=== PATIENT | male | born 1965 | race Caucasian/White ===

== ENCOUNTER 2016-03-17 16:43 | Emergency (ER) | payer OTHER ==
[~2016-03-17] VITALS: Ht 180.3 cm; Wt 136.0 kg
[~2016-03-17 16:43] MED LIST: CLIN1CAP6 PO; FURO20 PO; INSU1SOL; NADO20TA PO; OXYC15TA PO; pain pump
[2016-03-17 16:45] VITALS: BP 172/84; PULSE 106; RESP 14; TEMP 98.7; O2SAT 97
[2016-03-17] MEDS ORDERED: FURO1TAB62 PO (21:47)
[2016-03-17] MEDS ORDERED: OXYC-424 PO (21:47)
[2016-03-17] MEDS ORDERED: METF500T PO (21:47)
[2016-03-17] MEDS ORDERED: INSU1SOL SQ (21:47)
[2016-03-17] MEDS ORDERED: SODIUM CHLORIDE 0.9% FLUSH 5 ML FLUSH IVF PRN (22:30)
[2016-03-17] MEDS ORDERED: ONDANSETRON HCL 4 MG/2 ML VIAL IVP ONE (22:30)
[2016-03-17] MEDS ORDERED: HYDROmorphone HCL PF 1 MG/ML VIAL IVS ONE (22:30)
[2016-03-17 23:06] LABS: AUTOMATED NEUTROPHIL # 5.4 TH/MM3 (1.8-7.7); BASOPHIL # 0.1 TH/MM3 (0-0.2); BASOPHIL % 0.7 % (0.0-2.0); EOSINOPHIL # 0.1 TH/MM3 (0-0.4); EOSINOPHIL % 1.3 % (0.0-4.0); HEMATOCRIT 39.8 % (39.0-51.0); HEMO FLAGS DIFF FINAL; LYMPH % 23.3 % (9.0-44.0); MEAN CELL VOLUME 96.2 FL (80.0-100.0); MEAN CORPUSCULAR HGB CONC 34.3 % (32.0-36.0); NEUT % 64.7 % (16.0-70.0); PLATELET COUNT 149 TH/MM3 (150-450); RED BLOOD COUNT 4.14 MIL/MM3 (4.50-5.90); RED CELL DISTRIBUTION WIDTH 15.8 % (11.6-17.2); WHITE BLOOD COUNT 8.4 TH/MM3 (4.0-11.0)
[2016-03-17 23:17] LABS: APTT (PATIENT) 29.8 SEC (24.3-30.1); INTERNATIONAL NORMALIZED RATIO 1.2 RATIO; PROTHROMBIN TIME - PATIENT 13.1 SEC (9.8-11.6)
[2016-03-17 23:20] LABS: ANION GAP 10 MEQ/L (5-15); AST (GOT) 29 U/L (15-37); BICARBONATE 30.3 MEQ/L (21.0-32.0); BLOOD UREA NITROGEN 4 MG/DL (7-18); CHLORIDE 96 MEQ/L (98-107); GLOMERULAR FILTRATION RATE 120 ML/MIN (>89); POTASSIUM 4.3 MEQ/L (3.5-5.1); SODIUM (NA) 136 MEQ/L (136-145)
[2016-03-17 23:23] LABS: ALKALINE PHOSPHATASE 197 U/L (45-117); ALT (GPT) 19 U/L (12-78); TOTAL BILIRUBIN ADULT 1.4 MG/DL (0.2-1.0)
[2016-03-17 23:24] LABS: BLOOD, URINE TRACE (NEG); COMMENT (UR) CULT NOT INDICATED; CULTURE IF INDICATED CULT NOT INDICATED; GLUCOSE,URINE 1000 mg/dL (NEG); KETONE, URINE TRACE mg/dL (NEG); MUCUS URINE FEW /lpf (OCC); NITRITE,URINE NEG (NEG); PH, URINE 6.5 (5.0-8.5); SQUAMOUS EPITHELIAL CELL URINE 1 /hpf (0-5); URINE COLOR YELLOW (YELLW/STRAW)
--- NOTE | 2016-03-18 00:49 | PD ---
HPI Chief Complaint: Back/ Neck Pain or Injury Time Seen by Provider: 21:52 Travel History International Travel<30 days: No Contact w/Intl Traveler<30days: No Traveled to known affect area: No History of Present Illness HPI The patient 79 years old and complains of 2 weeks of right flank and right low back pain. Onset gradual. He's noticed some dark urine. His normal routine of indwelling Dilaudid infuser could not confer sufficient benefit. He's had no fever. He's had no vomiting. Pain radiates from the region of the right iliac crest to the posterior inferior right thigh. Pain is worse with palpation. PFSH Past Medical History Asthma: No Blood Disorders: No Anxiety: No Depression: No Heart Rhythm Problems: No Cancer: No Cardiac Catheterization: No Cardiovascular Problems: No High Cholesterol: No Chemotherapy: No Chest Pain: No Congestive Heart Failure: No COPD: No Diabetes: Yes Patient Takes Glucophage: Yes Diminished Hearing: No Deep Vein Thrombosis: Yes Endocrine: Yes Gastrointestinal Disorders: Yes (esophageal varosis) GERD: Yes Genitourinary: Yes (recent UTI) Hepatitis: Yes (cirrohosis) Hiatal Hernia: No Immune Disorder: No Implanted Vascular Access Dvce: Yes (pain pump with dilaudid) Medical other: Yes (LIVER DISEASE) Musculoskeletal: Yes (fx of l3 and t9 hx of broken pelvis 2 herniated disc in c3-4) Neurologic: No Psychiatric: No Reproductive: No Respiratory: No Immunizations Current: No Radiation Therapy: No Sleep Apnea: No Thyroid Disease: No Past Surgical History AICD: No Body Medical Devices: 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 Coronary Artery Bypass Graft: No Coronary Stent: Yes Joint Replacement: No Neurologic Surgery: Yes (CHRISTIANO IN BACK) Pacemaker: No Thoracic Surgery: Yes (YANETH FILTER) Other Surgery: Yes (pelvic repair, right btk amputation) Social History Alcohol Use: Yes (OCCASSIONALLY- ) Tobacco Use: Yes (2 ppd) Substance Use: No Allergies-Medications (Allergen,Severity, Reaction): Coded Allergies: Morphine (Unverified Allergy, Severe, nausea and vomiting, 03/17/16) Nonsteroidal Anti-Inflammatory Agts (Verified Adverse Reaction, Severe, INCONTINENCE, 03/17/16) Reported Meds & Prescriptions Reported Meds & Active Scripts Active Reported Oxycodone ER (Oxycodone HCl) 15 Mg Tab 15 Mg PO Q8HR PRN Humulin R U-500 (Concentrate) Kwikpen Inj (Insulin Regular (Human) Concentrate Inj) 1,500 Units/3 Ml Pen 3 Units SQ TID Lasix (Furosemide) 20 Mg Tab 20 Mg PO DAILY Metformin (Metformin HCl) 500 Mg Tab 500 Mg PO BIDPC With meals Review of Systems Except as stated in HPI: all other systems reviewed are Neg General / Constitutional: No: Fever Cardiovascular: No: Chest Pain or Discomfort, Palpitations Physical Exam Narrative GENERAL: 50-year-old male BMI is 42 approximately SKIN: Warm and dry. HEAD: Atraumatic. Normocephalic. EYES: Pupils equal and round. No scleral icterus. No injection or drainage. ENT: No nasal bleeding or discharge. Mucous membranes pink and moist. NECK: Trachea midline. No JVD. CARDIOVASCULAR: Heart rate approximately 100. Regular rhythm. RESPIRATORY: No accessory muscle use. Clear to auscultation. Breath sounds equal bilaterally. GASTROINTESTINAL: Abdomen soft, non-tender, nondistended. Hepatic and splenic margins not palpable. MUSCULOSKELETAL: Right below-knee amputation. No gross deformity otherwise. Minimal tenderness to palpation overlying the region of the right iliac crest. NEUROLOGICAL: Awake and alert. No obvious cranial nerve deficits. Motor grossly within normal limits. Normal speech. PSYCHIATRIC: Appropriate mood and affect; insight and judgment normal. Data Data Last Documented VS Vital Signs Date Time Temp Pulse Resp B/P Pulse Ox O2 Delivery O2 Flow Rate FiO2 03/17/16 16:45 98.7 106 14 172/84 97 Room Air Orders Complete Blood Count With Diff (03/17/16 22:16) Comprehensive Metabolic Panel (03/17/16 22:16) Prothrombin Time / Inr (Pt) (03/17/16 22:16) Act Partial Throm Time (Ptt) (03/17/16 22:16) Urinalysis - C+S If Indicated (03/17/16 22:16) Iv Access Insert/Monitor (03/17/16 22:16) Ecg Monitoring (03/17/16 22:16) Oximetry (03/17/16 22:16) Ondansetron Inj (Zofran Inj) (03/17/16 22:30) Sodium Chloride 0.9% Flush (Ns Flush) (03/17/16 22:30) Hydromorphone Pf Inj (Dilaudid Pf Inj) (03/17/16 22:30) Ed Poc Ultrasound (03/18/16 00:37) Labs Laboratory Tests Test 03/17/16 03/17/16 22:50 23:00 White Blood Count 8.4 TH/MM3 Red Blood Count 4.14 MIL/MM3 Hemoglobin 13.7 GM/DL Hematocrit 39.8 % Mean Corpuscular Volume 96.2 FL Mean Corpuscular Hemoglobin 33.0 PG Mean Corpuscular Hemoglobin 34.3 % Concent Red Cell Distribution Width 15.8 % Platelet Count 149 TH/MM3 Mean Platelet Volume 8.5 FL Neutrophils (%) (Auto) 64.7 % Lymphocytes (%) (Auto) 23.3 % Monocytes (%) (Auto) 10.0 % Eosinophils (%) (Auto) 1.3 % Basophils (%) (Auto) 0.7 % Neutrophils # (Auto) 5.4 TH/MM3 Lymphocytes # (Auto) 2.0 TH/MM3 Monocytes # (Auto) 0.8 TH/MM3 Eosinophils # (Auto) 0.1 TH/MM3 Basophils # (Auto) 0.1 TH/MM3 CBC Comment DIFF FINAL Differential Comment Prothrombin Time 13.1 SEC Prothromb Time International 1.2 RATIO Ratio Activated Partial 29.8 SEC Thromboplast Time Sodium Level 136 MEQ/L Potassium Level 4.3 MEQ/L Chloride Level 96 MEQ/L Carbon Dioxide Level 30.3 MEQ/L Anion Gap 10 MEQ/L Blood Urea Nitrogen 4 MG/DL Creatinine 0.70 MG/DL Estimat Glomerular Filtration 120 ML/MIN Rate Random Glucose 219 MG/DL Calcium Level 8.3 MG/DL Total Bilirubin 1.4 MG/DL Aspartate Amino Transf 29 U/L (AST/SGOT) Alanine Aminotransferase 19 U/L (ALT/SGPT) Alkaline Phosphatase 197 U/L Total Protein 7.9 GM/DL Albumin 2.7 GM/DL Urine Color YELLOW Urine Turbidity CLEAR Urine pH 6.5 Urine Specific [place] 1.033 Urine Protein TRACE mg/dL Urine Glucose (UA) 1000 mg/dL Urine Ketones TRACE mg/dL Urine Occult Blood TRACE Urine Nitrite NEG Urine Bilirubin NEG Urine Urobilinogen GREATER THAN 12.0 MG/DL Urine Leukocyte Esterase NEG Urine RBC 6 /hpf Urine WBC 1 /hpf Urine Squamous Epithelial 1 /hpf Cells Urine Mucus FEW /lpf Microscopic Urinalysis Comment CULT NOT INDICATED MDM Medical Decision Making Medical Screen Exam Complete: Yes Emergency Medical Condition: Yes Differential Diagnosis Sciatica, kidney disease, renal failure, hepatobiliary disease, renal stone Narrative Course CBC & BMP Diagram 03/17/16 22:50 Bilirubin is 1.4 Alkaline phosphatase is 197 Albumin 2.7 INR 1.2 Urinalysis shows urobilinogen without UTI Overall the patient's primary issue is pain which is presumably sciatica. Upon reassessment the patient found sleeping in his room. He woke up and asked for additional Dilaudid. A bedside ultrasound revealed the right kidney with no hydronephrosis. During the exam the patient states he is out of his oxycodone prescription. In any case treatment medical or surgical emergency is considered reasonably safely excluded. Follow-up with primary care provider in the next 2 days or so. Return precautions discussed. Patient agreeable with plan. Procedures Procedure Narrative A bedside ultrasound was performed of the right kidney. Curvilinear probe was placed over the region of the right flank. Long and short axis views revealed no significant hydronephrosis. Diagnosis Primary Impression: Right flank pain Additional Impressions: Sciatica Qualified Code: M54.31 - Sciatica of right side Chronic pain Qualified Code: G89.29 - Other chronic pain Referrals: Primary Care Physician 2 days Additional Instructions: You have a choice when it comes to health care, and we are glad that you chose [facility]. Hopefully, we have met your expectations on today's visit. You are welcome to return to [facility] at any time, as we are committed to meeting the health care needs of our community. Follow up with follow-up with gastroenterology for evaluation of chronic liver disease next 2 days. Med/Other Pt SpecificInfo: Prescription(s) given Scripts Oxycodone-Acetaminophen (Percocet)7.5-325 mg Tab1 Tab PO Q6H PRN (PAIN SCALE 6 TO 10) #15 TAB Ref 0 Prov:Grady Zavala MD 03/18/16 Disposition: 01 DISCHARGE HOME Condition: Stable Grady Zavala MD Mar 18, 2016 00:49
[2016-03-18] MEDS ORDERED: PERC7.5T13 PO (01:14)
== END 2016-03-18 01:28 | disposition home or self-care (01) ==
LOC: NEPE 16:43
DX: R10.9 Unspecified abdominal pain (principal); M54.31 Sciatica, right side; G89.29 Other chronic pain
CPT/HCPCS: 80053; 81001; 85025; 85610; 85730; 96374; 96375; 99284; J1170; J2405

== ENCOUNTER 2016-03-23 14:44 | Inpatient (IN) | payer OTHER, MEDICARE ==
[~2016-03-23] VITALS: Ht 182.9 cm; Wt 156.5 kg
[~2016-03-23 14:44] MED LIST changes: -CLIN1CAP6 PO; +FURO1TAB62 PO; -FURO20 PO; -INSU1SOL; +INSU1SOL SQ; +METF500T PO; -NADO20TA PO; +OXYC-424 PO; -OXYC15TA PO; +PERC7.5T13 PO; -pain pump
[2016-03-23 15:03] VITALS: BP 173/100; PULSE 103; RESP 20; TEMP 98.3; O2SAT 93
[2016-03-23 20:40] VITALS: BP 152/76; PULSE 106; RESP 20; O2SAT 95
[2016-03-23 21:20] VITALS: RESP 20; O2SAT 95
[2016-03-23] MEDS ORDERED: SODIUM CHLORIDE 0.9% FLUSH 5 ML FLUSH IVF PRN (22:00)
[2016-03-23] MEDS ORDERED: ONDANSETRON HCL 4 MG/2 ML VIAL IVP ONE (22:00)
[2016-03-23] MEDS: SODIUM CHLOR 0.9% 1000 ML INJ 1,000 ML IV SCH (22:28)
[2016-03-23 22:29] LABS: KETONE, URINE NEG (NEG); NITRITE,URINE NEG (NEG)
[2016-03-23 22:30] LABS: BLOOD, URINE MOD (NEG); GLUCOSE,URINE 1000 OR GREATER mg/dL (NEG)
[2016-03-23 22:30] LABS: AUTOMATED NEUTROPHIL # 6.2 TH/MM3 (1.8-7.7); BASOPHIL % 0.2 % (0.0-2.0); EOSINOPHIL % 0.3 % (0.0-4.0); HEMATOCRIT 40.3 % (39.0-51.0); HEMO FLAGS DIFF FINAL; LYMPHOCYTE # 1.3 TH/MM3 (1.0-4.8); MEAN CELL VOLUME 94.5 FL (80.0-100.0); MEAN CORPUSCULAR HEMOGLOBIN 31.9 PG (27.0-34.0); MEAN CORPUSCULAR HGB CONC 33.7 % (32.0-36.0); MONO % 10.2 % (0.0-8.0); NEUT % 73.3 % (16.0-70.0); PLATELET COUNT 149 TH/MM3 (150-450); RED BLOOD COUNT 4.26 MIL/MM3 (4.50-5.90); RED CELL DISTRIBUTION WIDTH 15.6 % (11.6-17.2); WHITE BLOOD COUNT 8.3 TH/MM3 (4.0-11.0)
[2016-03-23 22:32] LABS: METHOD OF COLLECTION VOIDED; URINE COLOR AMBER (YELLW/STRAW)
[2016-03-23 22:35] VITALS: BP 141/79; PULSE 98; RESP 20; O2SAT 95
[2016-03-23 22:35] LABS: CHLORIDE 95 MEQ/L (98-107); POTASSIUM 3.4 MEQ/L (3.5-5.1); SODIUM (NA) 137 MEQ/L (136-145)
[2016-03-23 22:36] LABS: MUCUS URINE MOD /lpf (OCC)
[2016-03-23 22:37] LABS: BACTERIA, URINE RARE /hpf; RBC, URINE 0-3 /hpf (0-3)
[2016-03-23 22:39] LABS: ANION GAP 11 MEQ/L (5-15); BICARBONATE 30.7 MEQ/L (21.0-32.0); BLOOD UREA NITROGEN 5 MG/DL (7-18)
[2016-03-23 22:41] LABS: COMMENT (UR) CULT NOT INDICATED; CULTURE IF INDICATED CULT NOT INDICATED
[2016-03-23 22:42] LABS: ALT (GPT) 16 U/L (12-78); AST (GOT) 38 U/L (15-37); GLOMERULAR FILTRATION RATE 131 ML/MIN (>89)
[2016-03-23 22:44] LABS: TOTAL BILIRUBIN ADULT 1.8 MG/DL (0.2-1.0)
[2016-03-23 22:45] LABS: ALKALINE PHOSPHATASE 190 U/L (45-117)
[2016-03-23] MEDS ORDERED: DILA1LIQ (22:49)
[2016-03-23] MEDS: METFORMIN HOLD POST IV CONTRAST XX SCH (23:00)
--- NOTE | 2016-03-23 23:01 | RADHPO ---
EXAM DATE/TIME: 03/23/2016 22:46 [facility] COMPARISON: CHEST SINGLE AP, March 25, 2013, 21:25. INDICATIONS : Complains of pain in right hip and back. Cough. MEDICAL HISTORY : Diabetes mellitus type II. SURGICAL HISTORY : Lumbar ENCOUNTER: Initial ACUITY: 1 day PAIN SCORE: 10/10 LOCATION: Bilateral chest FINDINGS: A single view of the chest demonstrates bilateral mostly basilar airspace disease or. Heart size mild ly enlarged. No pneumothorax. CONCLUSION: 1. Cardiomegaly. Mild basilar airspace disease. River Lemons MD on March 23, 2016 at 22:58 Board Certified Radiologist. This report was verified electronically.
[2016-03-23] MEDS ORDERED: IOHEXOL 350 MG/ML 10 ML VIAL (for RAD DIAG) IV ONE (23:17)
[2016-03-23 23:20] LABS: APTT (PATIENT) 33.4 SEC (24.3-30.1); INTERNATIONAL NORMALIZED RATIO 1.2 RATIO; PROTHROMBIN TIME - PATIENT 13.3 SEC (9.8-11.6)
--- NOTE | 2016-03-23 23:32 | RADHPO ---
EXAM DATE/TIME: 03/23/2016 23:03 This report includes an Addendum and supersedes previous reports for this exam. [facility] COMPARISON: CT ABDOMEN & PELVIS W CONTRAST, July 15, 2015, 18:39. INDICATIONS : Right lower back pain radiating into right buttocks. IV CONTRAST: 100 cc Omnipaque 350 (iohexol) IV ORAL CONTRAST: No oral contrast ingested. RADIATION DOSE: 22.46 CTDIvol (mGy) MEDICAL HISTORY : Diabetes mellitus type 2. SURGICAL HISTORY : Fusion, lumbar. Neurostimulator. ENCOUNTER: Initial ACUITY: 2 weeks PAIN SCALE: 10/10 LOCATION: Right lower quadrant TECHNIQUE: Volumetric scanning of the abdomen and pelvis was performed. Using automated exposure control and ad justment of the mA and/or kV according to patient size, radiation dose was kept as low as reasonably achievable to obtain optimal diagnostic quality images. FINDINGS: Lobulated hepatic contour and caudate and left lobe hypertrophy characteristic of cirrhosis. There is recanalization of the umbilical vein and numerous varices are seen. This includes several varices in the gastrohepatic ligament and periesophageal region. There is splenomegaly. Pancreas, adrenal gland s, bilateral kidneys are unremarkable. IVC filter is noted. Urinary bladder unremarkable. Small and l arge bowel are unremarkable. There is scarring at the right lung base again seen. Review of bone wind ows demonstrate a postsurgical changes to the lower lumbar spine with remote fracture deformities of the pelvic bones with postoperative fixation hardware in place. There are remote pubic rami, pubic sy mphysis and acetabular fractures. No acute fractures are seen. CONCLUSION: No acute disease. Jace Goins MD on March 23, 2016 at 23:28 Board Certified Radiologist. This report was verified electronically. ADDENDUM: Additional clinical information is provided. There is induration of the subcutaneous fat of the right gluteal region and mild skin thickening which can be seen with cellulitis in the area of clinical co ncern. There is a well-defined though partially obscured low density area measuring 9 x 4 cm in trans verse and AP dimension at the right lower paravertebral region most likely representing a chronic ser leonarda. In the right gluteal region posterior to the sacrum the 16 cm fluid collection seen previously i s significantly decreased in size today measuring approximately 6.9 x 3.4 cm on axial image 78 and a 7.4 x 3.4 cm transverse and AP dimension fluid collection in the right gluteal region subcutaneous fa t as measured on axial image 63. Jace Goins MD on March 23, 2016 at 23:48 Board Certified Radiologist. This report was verified electronically.
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
[2016-03-24] VITALS (15 sets, daily range): BP systolic 132–178; BP diastolic 72–89; PULSE 78–104; RESP 12–29; TEMP 98–98.7; O2SAT 91–100
[2016-03-24] MEDS ORDERED: PIPERACIL-TAZO 3.375 GM PREMIX 50 ML IV ONE (00:15)
[2016-03-24] MEDS ORDERED: SODIUM CHLORIDE 0.9% FLUSH 5 ML FLUSH IVF PRN (00:15)
[2016-03-24] MEDS ORDERED: VANCOMYCIN INJ 1,500 MG in SODIUM CHLORID 0.9% 500 ML INJ 500 ML IV ONE (00:15)
[2016-03-24] MEDS ORDERED: SODIUM CHLOR 0.9% 1000 ML INJ 1,000 ML IV ONE (01:00)
[2016-03-24] MEDS ORDERED: Vancomycin Consult Pharmacy 1 EA OTHER SCH (01:00)
[2016-03-24] MEDS ORDERED: NALOXONE HCL 0.4 MG/ML AMP IV PRN (01:00)
[2016-03-24] MEDS ORDERED: SODIUM CHLORIDE 0.9% FLUSH 5 ML FLUSH FLUSH PRN (01:00)
[2016-03-24] MEDS: ONDANSETRON HCL 4 MG/2 ML VIAL IV PUSH PRN ×2 (03:39→19:33)
[2016-03-24] MEDS: RESP: IPRATROPIUM 0.5 MG/2.5 ML NEB NEB SCH ×4 (04:00→21:00)
[2016-03-24] MEDS ORDERED: RESP: IPRATROPIUM 0.5 MG/2.5 ML NEB NEB PRN (04:15)
[2016-03-24] MEDS ORDERED: methylPREDNISolone SOD SUCC 125 MG/2 ML VIAL IV PUSH ONE (04:15)
[2016-03-24] MEDS: SODIUM CHLOR 0.9% 1000 ML INJ 1,000 ML IV SCH (04:20)
[2016-03-24] MEDS ORDERED: PIPERACIL-TAZO 4.5 GM PREMIX 100 ML IV SCH (06:00)
[2016-03-24] MEDS ORDERED: SODIUM CHLORIDE 0.9% FLUSH 5 ML FLUSH IVF SCH (09:00)
[2016-03-24] MEDS: SODIUM CHLORIDE 0.9% FLUSH 5 ML FLUSH FLUSH SCH ×2 (09:00→19:33)
[2016-03-24] MEDS: VANCOMYCIN INJ 1,700 MG in SODIUM CHLORID 0.9% 500 ML INJ 500 ML IV SCH ×2 (09:36→17:17)
[2016-03-24] MEDS: ENOXAPARIN SODIUM 40 MG/0.4 ML SYRINGE SQ SCH (09:36)
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
[2016-03-24] MEDS ORDERED: OXYCODONE 15 MG PO PRN (12:00)
[2016-03-24] MEDS ORDERED: DEXTROSE 50% IN WATER 50 ML VIAL(D50) IV PUSH PRN (12:00)
[2016-03-24] MEDS ORDERED: GLUCAGON 1 MG/ML VIAL OTHER PRN (12:00)
[2016-03-24] MEDS: oxyCODONE HCL 10 MG CONTROLLED RELEASE TAB PO SCH ×2 (14:00→21:48)
[2016-03-24] MEDS: METFORMIN HOLD POST IV CONTRAST XX SCH ×2 (14:00→23:00)
[2016-03-24] MEDS: INSULIN ASPART SUPPLEMENTAL SCALE SQ SCH ×2 (16:26→19:40)
[2016-03-24] MEDS: oxyCODONE/ACETAMINOPHEN 7.5 MG/325 MG TAB PO PRN (16:29)
[2016-03-24] MEDS ORDERED: metFORMIN HCL 500 MG TAB PO SCH (18:00)
[2016-03-24] MEDS: DOCUSATE SODIUM 50 MG/SENNA 8.6 MG TAB PO SCH (19:34)
[2016-03-25] VITALS (11 sets, daily range): BP systolic 121–162; BP diastolic 67–103; PULSE 69–90; RESP 12–25; TEMP 97.3–98.1; O2SAT 93–98
[2016-03-25] MEDS: VANCOMYCIN INJ 1,700 MG in SODIUM CHLORID 0.9% 500 ML INJ 500 ML IV SCH ×3 (01:57→17:06)
[2016-03-25] MEDS: oxyCODONE/ACETAMINOPHEN 7.5 MG/325 MG TAB PO PRN ×3 (01:57→17:06)
[2016-03-25] MEDS: RESP: IPRATROPIUM 0.5 MG/2.5 ML NEB NEB SCH ×4 (03:42→20:46)
[2016-03-25 05:15] LABS: AUTOMATED NEUTROPHIL # 6.9 TH/MM3 (1.8-7.7); BASOPHIL % 0.6 % (0.0-2.0); EOSINOPHIL % 0.1 % (0.0-4.0); HEMATOCRIT 39.9 % (39.0-51.0); HEMO FLAGS DIFF FINAL; LYMPH % 9.9 % (9.0-44.0); LYMPHOCYTE # 0.8 TH/MM3 (1.0-4.8); MEAN CELL VOLUME 96.3 FL (80.0-100.0); MEAN CORPUSCULAR HEMOGLOBIN 31.3 PG (27.0-34.0); MEAN CORPUSCULAR HGB CONC 32.5 % (32.0-36.0); MONO % 5.8 % (0.0-8.0); NEUT % 83.6 % (16.0-70.0); PLATELET COUNT 137 TH/MM3 (150-450); RED BLOOD COUNT 4.15 MIL/MM3 (4.50-5.90); RED CELL DISTRIBUTION WIDTH 15.5 % (11.6-17.2); WHITE BLOOD COUNT 8.2 TH/MM3 (4.0-11.0)
[2016-03-25 05:37] LABS: BICARBONATE 32.7 MEQ/L (21.0-32.0); POTASSIUM 4.4 MEQ/L (3.5-5.1)
[2016-03-25] MEDS: oxyCODONE HCL 10 MG CONTROLLED RELEASE TAB PO SCH ×3 (05:46→21:53)
[2016-03-25] MEDS: INSULIN ASPART SUPPLEMENTAL SCALE SQ SCH ×4 (05:46→20:54)
[2016-03-25] MEDS: ENOXAPARIN SODIUM 40 MG/0.4 ML SYRINGE SQ SCH (09:10)
[2016-03-25] MEDS: FUROSEMIDE 20 MG TAB PO SCH (09:10)
[2016-03-25] MEDS: SODIUM CHLORIDE 0.9% FLUSH 5 ML FLUSH FLUSH SCH ×2 (09:11→20:42)
[2016-03-25] MEDS: DOCUSATE SODIUM 50 MG/SENNA 8.6 MG TAB PO SCH ×2 (09:11→20:42)
[2016-03-25] MEDS ORDERED: PHARMACY ORDERED LAB XX ONE (09:45)
[2016-03-25] MEDS: METFORMIN HOLD POST IV CONTRAST XX SCH (13:47)
--- NOTE | 2016-03-25 14:37 | HHI.PR ---
Subjective Remarks Patient seen and evaluated in follow-up for a gluteal cellulitis which appears to be improving. Patient tolerating current antibiotics. No new complaints. Objective Vitals Vital Signs Date Time Temp Pulse Resp B/P Pulse Ox O2 Delivery O2 Flow Rate FiO2 03/25/16 09:33 93 21 03/25/16 04:00 97.8 78 13 162/97 98 03/25/16 04:00 78 03/25/16 00:00 98.1 86 16 147/67 96 03/25/16 00:00 86 03/24/16 21:00 95 Nasal Cannula 2.00 03/24/16 20:00 98.0 86 20 178/76 94 03/24/16 20:00 89 03/24/16 16:24 92 21 03/24/16 16:00 98.2 79 20 168/82 91 03/24/16 16:00 78 I/O 03/24/16 03/24/16 03/24/16 03/25/16 03/25/16 03/25/16 06:59 14:59 22:59 06:59 14:59 22:59 Intake Total 1365 ml 1728 ml 1185 ml 835 ml Output Total 700 ml 400 ml 750 ml 600 ml Balance 665 ml 1328 ml 435 ml 235 ml Intake Oral 120 ml 520 ml 240 ml 240 ml IV Total 1245 ml 1208 ml 945 ml 595 ml Output Urine Total 700 ml 400 ml 750 ml 600 ml # Bowel Movements 0 0 0 0 Result Diagram: 03/25/16 0500 03/25/16 0500 Imaging Last Impressions Chest X-Ray 03/23/162149 Signed Impressions: Service Date/Time: Wednesday, March 23, 2016 22:46 - CONCLUSION: 1. Cardiomegaly. Mild basilar airspace disease. River Lemons MD Abdomen/Pelvis CT 03/23/162149 Signed Impressions: Service Date/Time: Wednesday, March 23, 2016 23:03 - CONCLUSION: No acute disease. Jace Goins MD ADDENDUM: Additional clinical information is provided. There is induration of the subcutaneous fat of the right gluteal region and mild skin thickening which can be seen with cellulitis in the area of clinical concern. There is a well-defined though partially obscured low density area measuring 9 x 4 cm in transverse and AP dimension at the right lower paravertebral region most likely representing a chronic seroma. In the right gluteal region posterior to the sacrum the 16 cm fluid collection seen previously is significantly decreased in size today measuring approximately 6.9 x 3.4 cm on axial image 78 and a 7.4 x 3.4 cm transverse and AP dimension fluid collection in the right gluteal region subcutaneous fat as measured on axial image 63. Jace Goins MD Objective Remarks GENERAL: This is a well-nourished, well-developed patient, in no apparent distress. CARDIOVASCULAR: Regular rate and rhythm without murmurs, gallops, or rubs. RESPIRATORY: Clear to auscultation. Breath sounds equal bilaterally. No wheezes , rales, or rhonchi. GASTROINTESTINAL: Abdomen soft, non-tender, nondistended. Normal active bowel sounds MUSCULOSKELETAL: r BKA Extremities without clubbing, cyanosis, or edema. NEURO: Alert & Oriented x4 to person, place, time, situation. Moves all ext x4 A/P Problem List: (1) Cellulitis of buttock, right ICD Code: L03.317 Status: Acute Plan: Vanco IV, to po abx in am Chronic wound, outpatient follow up for this as an outpatient (Dr. Srinivasan Shannon) Sepsis resolved daily wound care (2) DM type 2 (diabetes mellitus, type 2) ICD Code: E11.9 Status: Chronic Plan: cont meds and sliding scale (3) Chronic pain ICD Code: G89.29 Status: Acute Plan: on painpump po meds continue (4) Cirrhosis ICD Code: K74.60 Status: Acute Plan: stable Discharge Planning transfer to med surg likely d/c in Tiffanie Odell MD Mar 25, 2016 14:37
[2016-03-25] MEDS ORDERED: OXYC15TA PO (14:40)
[2016-03-26] VITALS (10 sets, daily range): BP systolic 120–141; BP diastolic 72–80; PULSE 80–98; RESP 11–22; TEMP 97–97.9; O2SAT 92–94
[2016-03-26] MEDS: oxyCODONE/ACETAMINOPHEN 7.5 MG/325 MG TAB PO PRN ×2 (00:09→08:50)
[2016-03-26] MEDS: VANCOMYCIN INJ 1,700 MG in SODIUM CHLORID 0.9% 500 ML INJ 500 ML IV SCH ×2 (01:51→10:50)
[2016-03-26] MEDS: RESP: IPRATROPIUM 0.5 MG/2.5 ML NEB NEB SCH ×2 (04:10→10:08)
[2016-03-26] MEDS: INSULIN ASPART SUPPLEMENTAL SCALE SQ SCH ×2 (05:18→11:29)
[2016-03-26] MEDS: oxyCODONE HCL 10 MG CONTROLLED RELEASE TAB PO SCH ×2 (05:18→13:49)
[2016-03-26] MEDS: DOCUSATE SODIUM 50 MG/SENNA 8.6 MG TAB PO SCH (08:50)
[2016-03-26] MEDS: ENOXAPARIN SODIUM 40 MG/0.4 ML SYRINGE SQ SCH (08:50)
[2016-03-26] MEDS: FUROSEMIDE 20 MG TAB PO SCH (08:50)
[2016-03-26] MEDS: SODIUM CHLORIDE 0.9% FLUSH 5 ML FLUSH FLUSH SCH (08:54)
[2016-03-26] MEDS ORDERED: OXYC15TA PO (14:03)
--- NOTE | 2016-03-26 14:05 | HHI.DCPOC ---
Discharge Care Plan Diagnosis: (1) Cellulitis of buttock, right (2) DM type 2 (diabetes mellitus, type 2) Goals to Promote Your Health * To prevent worsening of your condition and complications * To maintain your health at the optimal level Directions to Meet Your Goals Take your medications as prescribed Follow your dietary instruction Follow activity as directed Keep your appointments as scheduled Take your immunizations and boosters as scheduled If your symptoms worsen call your PCP, if no PCP go to Urgent Care Center or Emergency Room Smoking is Dangerous to Your Health. Avoid second hand smoke Call the 24-hour hour crisis hotline for domestic abuse at Tiffanie Odell MD Mar 26, 2016 14:05
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
[2016-03-26] MEDS ORDERED: MORPHINE SULFATE 8 MG/ML INJ ONE (14:57)
[2016-03-26] MEDS ORDERED: PERC7.5T13 PO (15:19)
== END 2016-03-26 17:00 | disposition home or self-care (01) | DRG 872 ==
LOC: PHED 14:44 → PHEDA 03-24 00:07 → PHICU 03-24 03:12
PROVIDERS: ADMIT Hospitalist; ATTEND Hospitalist
DX: A41.9 Sepsis, unspecified organism (principal); L03.317 Cellulitis of buttock; K70.30 Alcoholic cirrhosis of liver without ascites; Z89.611 Acquired absence of right leg above knee; E11.9 Type 2 diabetes mellitus without complications; E66.9 Obesity, unspecified; S31.819D Unspecified open wound of right buttock, subsequent encounter; Z79.4 Long term (current) use of insulin; K21.9 Gastro-esophageal reflux disease without esophagitis; Z86.718 Personal history of other venous thrombosis and embolism; F17.210 Nicotine dependence, cigarettes, uncomplicated; G89.29 Other chronic pain; M54.5 Low back pain; X58.XXXD Exposure to other specified factors, subsequent encounter
CPT/HCPCS: 71010; 74177; 80048; 80053; 80202; 81001; 82948; 83605; 83690; 85025; 85610; 85730; 87040; 94150; 94640; 94664; 96361; 96374; J1650; J1815; J2270; J2405; J2543; J2930; J3370; J7030; J7040; J7644; Q9967

== ENCOUNTER 2016-03-28 05:04 | Inpatient (IN) | payer OTHER, MEDICARE ==
[~2016-03-28] VITALS: Ht 180.3 cm; Wt 154.0 kg
[~2016-03-28 05:04] MED LIST changes: +DILA1LIQ; -OXYC-424 PO
[2016-03-28 05:07] VITALS: BP 155/72; PULSE 111; RESP 18; TEMP 98.4; O2SAT 94
[2016-03-28] MEDS ORDERED: oxyCODONE/ACETAMINOPHEN 5 MG/325 MG TAB PO ONE (05:45)
[2016-03-28] MEDS ORDERED: ONDANSETRON HCL 4 MG/2 ML VIAL IV ONE (05:45)
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
[2016-03-28 06:23] LABS: BASOPHIL % 0.3 % (0.0-2.0); EOSINOPHIL # 0.2 TH/MM3 (0-0.4); EOSINOPHIL % 2.1 % (0.0-4.0); HEMATOCRIT 34.7 % (39.0-51.0); HEMO FLAGS DIFF FINAL; LYMPH % 17.3 % (9.0-44.0); LYMPHOCYTE # 1.3 TH/MM3 (1.0-4.8); MEAN CELL VOLUME 94.4 FL (80.0-100.0); MEAN CORPUSCULAR HEMOGLOBIN 33.9 PG (27.0-34.0); MEAN CORPUSCULAR HGB CONC 35.9 % (32.0-36.0); MONO % 13.8 % (0.0-8.0); NEUT % 66.5 % (16.0-70.0); PLATELET COUNT 162 TH/MM3 (150-450); RED BLOOD COUNT 3.67 MIL/MM3 (4.50-5.90); RED CELL DISTRIBUTION WIDTH 16.3 % (11.6-17.2); WHITE BLOOD COUNT 7.5 TH/MM3 (4.0-11.0)
[2016-03-28 06:23] LABS: ALKALINE PHOSPHATASE 144 U/L (45-117); TOTAL BILIRUBIN ADULT 1.9 MG/DL (0.2-1.0)
[2016-03-28 07:00] VITALS: BP 140/64; PULSE 100; RESP 16; O2SAT 98
[2016-03-28] MEDS ORDERED: PIPERACIL-TAZO 3.375 GM PREMIX 50 ML IV ONE (07:15)
[2016-03-28] MEDS ORDERED: VANCOMYCIN INJ 1,000 MG in SODIUM CHLOR 0.9% 250 ML INJ 250 ML IV ONE (07:15)
[2016-03-28 07:16] LABS: ALT (GPT) 20 U/L (12-78); ANION GAP 8 MEQ/L (5-15); AST (GOT) 39 U/L (15-37); BICARBONATE 30.2 MEQ/L (21.0-32.0); BLOOD UREA NITROGEN 5 MG/DL (7-18); CHLORIDE 98 MEQ/L (98-107); GLOMERULAR FILTRATION RATE 138 ML/MIN (>89); POTASSIUM 3.3 MEQ/L (3.5-5.1); SODIUM (NA) 136 MEQ/L (136-145)
[2016-03-28 09:00] VITALS: BP 142/66; PULSE 97; RESP 20; O2SAT 97
[2016-03-28] MEDS: SODIUM CHLOR 0.9% 1000 ML INJ 1,000 ML IV SCH ×2 (09:18→18:20)
[2016-03-28] MEDS ORDERED: ACETAMINOPHEN 325 MG TAB PO PRN (09:30)
[2016-03-28] MEDS ORDERED: VANCOMYCIN INJ 1,000 MG in SODIUM CHLOR 0.9% 250 ML INJ 250 ML IV SCH (09:30)
[2016-03-28] MEDS ORDERED: Vancomycin Consult Pharmacy 1 EA OTHER SCH (09:30)
[2016-03-28] MEDS: HEPARIN SODIUM - SQ 10,000 UNITS/ML VIAL SQ SCH ×2 (10:17→18:20)
[2016-03-28] MEDS: PIPERACIL-TAZO 4.5 GM PREMIX 100 ML IV SCH ×2 (15:15→23:34)
[2016-03-28 16:00] VITALS: BP 113/54; PULSE 88; RESP 17; TEMP 96.8; O2SAT 91
[2016-03-28] MEDS: VANCOMYCIN INJ 1,750 MG in SODIUM CHLORID 0.9% 500 ML INJ 500 ML IV SCH (18:20)
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
[2016-03-28] MEDS ORDERED: oxyCODONE/ACETAMINOPHEN 7.5 MG/325 MG TAB PO PRN (19:00)
[2016-03-28 20:00] VITALS: BP 114/75; PULSE 83; RESP 18; TEMP 98.3; O2SAT 94
[2016-03-28] MEDS: SODIUM CHLORIDE 0.9% FLUSH 5 ML FLUSH FLUSH SCH (20:43)
[2016-03-29] VITALS: BP 130/73; PULSE 77; RESP 20; TEMP 96.1; O2SAT 95
[2016-03-29] MEDS: HEPARIN SODIUM - SQ 10,000 UNITS/ML VIAL SQ SCH ×3 (01:11→16:18)
[2016-03-29] MEDS: VANCOMYCIN INJ 1,750 MG in SODIUM CHLORID 0.9% 500 ML INJ 500 ML IV SCH ×2 (05:18→16:18)
[2016-03-29] MEDS: SODIUM CHLOR 0.9% 1000 ML INJ 1,000 ML IV SCH ×2 (05:18→13:41)
[2016-03-29] MEDS: ONDANSETRON HCL 4 MG/2 ML VIAL IVP PRN ×2 (06:48→13:38)
[2016-03-29 06:56] LABS: AUTOMATED NEUTROPHIL # 3.4 TH/MM3 (1.8-7.7); BASOPHIL % 0.7 % (0.0-2.0); EOSINOPHIL # 0.2 TH/MM3 (0-0.4); EOSINOPHIL % 2.8 % (0.0-4.0); HEMATOCRIT 36.1 % (39.0-51.0); HEMO FLAGS DIFF FINAL; LYMPH % 25.4 % (9.0-44.0); LYMPHOCYTE # 1.5 TH/MM3 (1.0-4.8); MEAN CELL VOLUME 97.4 FL (80.0-100.0); MEAN CORPUSCULAR HEMOGLOBIN 31.8 PG (27.0-34.0); MEAN CORPUSCULAR HGB CONC 32.6 % (32.0-36.0); MONO % 14.3 % (0.0-8.0); NEUT % 56.8 % (16.0-70.0); PLATELET COUNT 139 TH/MM3 (150-450); RED BLOOD COUNT 3.71 MIL/MM3 (4.50-5.90); RED CELL DISTRIBUTION WIDTH 16.4 % (11.6-17.2)
[2016-03-29] MEDS: PIPERACIL-TAZO 4.5 GM PREMIX 100 ML IV SCH ×2 (07:17→13:38)
[2016-03-29 07:27] LABS: ALKALINE PHOSPHATASE 133 U/L (45-117); ALT (GPT) 18 U/L (12-78); ANION GAP 6 MEQ/L (5-15); AST (GOT) 32 U/L (15-37); BICARBONATE 32.2 MEQ/L (21.0-32.0); BLOOD UREA NITROGEN 7 MG/DL (7-18); CHLORIDE 101 MEQ/L (98-107); GLOMERULAR FILTRATION RATE 129 ML/MIN (>89); POTASSIUM 3.7 MEQ/L (3.5-5.1); SODIUM (NA) 139 MEQ/L (136-145); TOTAL BILIRUBIN ADULT 1.1 MG/DL (0.2-1.0)
[2016-03-29 08:00] VITALS: BP 130/62; PULSE 86; RESP 17; TEMP 97.5; O2SAT 94
[2016-03-29] MEDS: INSULIN HUMAN REGULAR 1,000 UNITS/10 ML VIAL SQ SCH ×3 (08:00→16:17)
[2016-03-29] MEDS: SODIUM CHLORIDE 0.9% FLUSH 5 ML FLUSH FLUSH SCH ×2 (08:45→21:00)
[2016-03-29] MEDS: FUROSEMIDE 20 MG TAB PO SCH (08:45)
[2016-03-29 12:00] VITALS: BP 127/61; PULSE 89; RESP 16; TEMP 98.7; O2SAT 90
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
[2016-03-29 16:00] VITALS: BP 142/86; PULSE 93; RESP 16; TEMP 97.7; O2SAT 92
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
[2016-03-29 20:00] VITALS: BP 137/79; PULSE 84; RESP 18; TEMP 98.1; O2SAT 96
[2016-03-30] VITALS: BP 126/77; PULSE 81; RESP 17; TEMP 97.8; O2SAT 97
[2016-03-30] MEDS: HEPARIN SODIUM - SQ 10,000 UNITS/ML VIAL SQ SCH ×3 (01:01→16:55)
[2016-03-30] MEDS: PIPERACIL-TAZO 4.5 GM PREMIX 100 ML IV SCH ×4 (01:01→21:50)
[2016-03-30] MEDS: SODIUM CHLOR 0.9% 1000 ML INJ 1,000 ML IV SCH ×2 (05:05→13:49)
[2016-03-30] MEDS: VANCOMYCIN INJ 1,750 MG in SODIUM CHLORID 0.9% 500 ML INJ 500 ML IV SCH ×2 (05:21→17:34)
[2016-03-30] MEDS ORDERED: PHARMACY ORDERED LAB XX ONE (05:45)
[2016-03-30 07:38] VITALS: BP 127/67; PULSE 76; RESP 17; TEMP 97; O2SAT 99
[2016-03-30] MEDS: INSULIN HUMAN REGULAR 1,000 UNITS/10 ML VIAL SQ SCH ×3 (08:00→16:54)
[2016-03-30] MEDS: FUROSEMIDE 20 MG TAB PO SCH (08:56)
[2016-03-30] MEDS: SODIUM CHLORIDE 0.9% FLUSH 5 ML FLUSH FLUSH SCH ×2 (08:57→21:50)
[2016-03-30] MEDS: ONDANSETRON HCL 4 MG/2 ML VIAL IVP PRN (10:32)
[2016-03-30 12:00] VITALS: BP 133/72; PULSE 86; RESP 15; TEMP 97.1; O2SAT 91
[2016-03-30 16:00] VITALS: BP 97/59; PULSE 82; RESP 20; TEMP 97.1; O2SAT 95
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
[2016-03-30] MEDS ORDERED: RESP: ALBUTEROL 2.5 MG/IPRATROPIUM 0.5 MG NEB (PRN) NEB (17:00)
[2016-03-30] MEDS ORDERED: FUROSEMIDE 40 MG/4 ML VIAL IV PUSH ONE (17:00)
--- NOTE | 2016-03-30 17:43 | RADRPT ---
EXAM DATE/TIME: 03/30/2016 16:50 [place] COMPARISON: CHEST SINGLE AP, March 23, 2016, 22:46. INDICATIONS : Short of breath, wheezing today MEDICAL HISTORY : Diabetes mellitus type II. SURGICAL HISTORY : lumbar ENCOUNTER: Subsequent ACUITY: 1 day PAIN SCORE: 0/10 LOCATION: Bilateral chest FINDINGS: A single view of the chest demonstrates the lungs to be symmetrically aerated without evidence of mas s, infiltrate or effusion. The size remains mildly prominent with no definite perihilar edema. [place] us structures are intact. CONCLUSION: Mild cardiomegaly with no evidence of pneumonia or pulmonary edema. Todd Rothman MD on March 30, 2016 at 17:41 Board Certified Radiologist. This report was verified electronically.
[2016-03-30 19:58] VITALS: BP 142/74; PULSE 83; RESP 18; TEMP 96.5; O2SAT 95
[2016-03-31] VITALS: BP 161/90; PULSE 84; RESP 18; TEMP 97.4; O2SAT 98
[2016-03-31] MEDS: HEPARIN SODIUM - SQ 10,000 UNITS/ML VIAL SQ SCH ×3 (00:45→18:22)
[2016-03-31] MEDS: ONDANSETRON HCL 4 MG/2 ML VIAL IVP PRN ×3 (01:34→17:12)
[2016-03-31] MEDS: VANCOMYCIN INJ 1,750 MG in SODIUM CHLORID 0.9% 500 ML INJ 500 ML IV SCH (05:31)
[2016-03-31] MEDS: PIPERACIL-TAZO 4.5 GM PREMIX 100 ML IV SCH ×3 (07:00→13:13)
[2016-03-31 08:00] VITALS: BP 126/84; PULSE 86; RESP 17; TEMP 97.9; O2SAT 95
[2016-03-31] MEDS: INSULIN HUMAN REGULAR 1,000 UNITS/10 ML VIAL SQ SCH (08:00)
[2016-03-31] MEDS: SODIUM CHLORIDE 0.9% FLUSH 5 ML FLUSH FLUSH SCH ×2 (09:00→21:34)
[2016-03-31] MEDS: FUROSEMIDE 20 MG TAB PO SCH (09:00)
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
[2016-03-31] MEDS: SODIUM CHLORIDE 0.9% FLUSH 5 ML FLUSH FLUSH PRN ×2 (09:17→17:14)
[2016-03-31 12:00] VITALS: BP 135/81; PULSE 91; RESP 19; TEMP 97.9; O2SAT 95
[2016-03-31] MEDS ORDERED: DEXTROSE 50% IN WATER 50 ML VIAL(D50) IV PUSH PRN (12:15)
[2016-03-31] MEDS ORDERED: GLUCAGON 1 MG/ML VIAL OTHER PRN (12:15)
[2016-03-31] MEDS: SODIUM CHLOR 0.9% 1000 ML INJ 1,000 ML IV SCH ×2 (13:13→22:37)
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
[2016-03-31] MEDS: INSULIN ASPART SUPPLEMENTAL SCALE SQ SCH ×2 (16:00→21:35)
[2016-03-31 17:25] VITALS: BP 143/53; PULSE 81; RESP 19; TEMP 98.7; O2SAT 96
--- NOTE | 2016-03-31 18:46 | HHI.IDPN ---
Subjective Subjective Remarks New problem - creatinine more than doubled no fever clx with skin edy Antibiotics vanco zosyn Allergies: Coded Allergies: Morphine (Unverified Allergy, Severe, nausea and vomiting, 03/23/16) Nonsteroidal Anti-Inflammatory Agts (Verified Adverse Reaction, Severe, INCONTINENCE, 03/23/16) Objective . Vital Signs Date Time Temp Pulse Resp B/P Pulse Ox O2 Delivery O2 Flow Rate FiO2 03/31/16 18:13 18 03/31/16 17:25 98.7 81 19 143/53 96 03/31/16 12:00 97.9 91 19 135/81 95 03/31/16 08:00 97.9 86 17 126/84 95 03/31/16 00:00 97.4 84 18 161/90 98 03/30/16 19:58 96.5 83 18 142/74 95 03/30/16 03/30/16 03/31/16 15:00 23:00 07:00 Intake Total 755 ml 0 ml 480 ml Output Total 1000 ml 600 ml 950 ml Balance -245 ml -600 ml -470 ml Intake Oral 480 ml IV Total 755 ml 0 ml Output Urine Total 1000 ml 600 ml 950 ml # Bowel Movements 0 . Laboratory Tests Test 03/31/16 05:12 Creatinine 1.72 MG/DL Estimat Glomerular Filtration 43 ML/MIN Rate Imaging Last Impressions Chest X-Ray 03/30/16 0000 Signed Impressions: Service Date/Time: Wednesday, March 30, 2016 16:50 - CONCLUSION: Mild cardiomegaly with no evidence of pneumonia or pulmonary edema. Todd Rothman MD Physical Exam CONSTITUTIONAL/GENERAL: This is am morbidly obese patient, in no apparent distress. SKIN: No jaundice, rashes, or lesions. CARDIOVASCULAR: Regular rate and rhythm without murmurs, gallops, or rubs. No JVD. Peripheral pulses symmetric. RESPIRATORY/CHEST: Symmetric, unlabored respirations. GASTROINTESTINAL: Abdomen benign MUSCULOSKELETAL: Extremities without clubbing, cyanosis, worsening LE edema.. No mottling or clubbing. sp R BKA BACK: well healed scar lower back Erythemaout indurated BOTH buttocks, more prominemt R small amount of odorless serosan dc pain pump i place no erytjea onUOQ of R buttock NEUROLOGICAL: Awake and alert. Motor and sensory grossly within normal limits. Follows commands. Normal speech. Moves all extremities. Assessment & Plan Remarks R buttock cellulitis ? infected seroma - growing nl skin edy so far - suspected underlying hardware infx - clx with nl skin edy, doubt clin sign Indwleiing hardware New prob : ARF ? abx contributing Rec's: dc vanco, zosyn -start daptomycin - monitor CKs while on dapto - monitor renal fnx and UOP - urine eos awaiting neuro sx consult - Dr Logan saw the pt for similar concern last August Kim Crandall MD Mar 31, 2016 18:46
[2016-03-31 20:20] VITALS: BP 129/80; PULSE 87; RESP 18; TEMP 96.7; O2SAT 96
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
[2016-03-31] MEDS: DAPTOmycin INJ 900 MG in SODIUM CHLORIDE 0.9% INJ 100 ML IV SCH (21:54)
[2016-04-01 00:17] VITALS: BP 157/84; PULSE 88; RESP 20; TEMP 97.4; O2SAT 98
[2016-04-01] MEDS: HEPARIN SODIUM - SQ 10,000 UNITS/ML VIAL SQ SCH ×3 (01:40→17:55)
[2016-04-01] MEDS: INSULIN ASPART SUPPLEMENTAL SCALE SQ SCH ×4 (07:00→21:00)
[2016-04-01 07:33] LABS: AUTOMATED NEUTROPHIL # 4.4 TH/MM3 (1.8-7.7); BASOPHIL % 0.3 % (0.0-2.0); EOSINOPHIL # 0.1 TH/MM3 (0-0.4); EOSINOPHIL % 0.9 % (0.0-4.0); HEMATOCRIT 34.6 % (39.0-51.0); HEMO FLAGS DIFF FINAL; LYMPH % 19.1 % (9.0-44.0); LYMPHOCYTE # 1.3 TH/MM3 (1.0-4.8); MEAN CELL VOLUME 96.2 FL (80.0-100.0); MEAN CORPUSCULAR HEMOGLOBIN 32.2 PG (27.0-34.0); MEAN CORPUSCULAR HGB CONC 33.5 % (32.0-36.0); MONO % 16.5 % (0.0-8.0); NEUT % 63.2 % (16.0-70.0); PLATELET COUNT 126 TH/MM3 (150-450); RED CELL DISTRIBUTION WIDTH 16.8 % (11.6-17.2)
[2016-04-01 07:56] LABS: ALKALINE PHOSPHATASE 143 U/L (45-117); ALT (GPT) 20 U/L (12-78); ANION GAP 7 MEQ/L (5-15); AST (GOT) 34 U/L (15-37); BICARBONATE 30.9 MEQ/L (21.0-32.0); BLOOD UREA NITROGEN 11 MG/DL (7-18); CHLORIDE 99 MEQ/L (98-107); GLOMERULAR FILTRATION RATE 38 ML/MIN (>89); MAGNESIUM 2.2 MG/DL (1.5-2.5); POTASSIUM 3.5 MEQ/L (3.5-5.1); SODIUM (NA) 137 MEQ/L (136-145); TOTAL BILIRUBIN ADULT 1.2 MG/DL (0.2-1.0)
[2016-04-01 08:00] VITALS: BP 144/86; PULSE 86; RESP 19; TEMP 97.3; O2SAT 92
[2016-04-01] MEDS: SODIUM CHLOR 0.9% 1000 ML INJ 1,000 ML IV SCH (08:30)
[2016-04-01] MEDS: SODIUM CHLORIDE 0.9% FLUSH 5 ML FLUSH FLUSH SCH ×2 (09:00→22:10)
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
[2016-04-01 12:00] VITALS: BP 167/77; PULSE 88; RESP 18; TEMP 97.5; O2SAT 92
[2016-04-01] MEDS: SODIUM CHLORIDE 0.9% FLUSH 5 ML FLUSH FLUSH PRN (12:25)
[2016-04-01] MEDS: ONDANSETRON HCL 4 MG/2 ML VIAL IVP PRN ×2 (12:27→23:37)
[2016-04-01] MEDS ORDERED: HYDROmorphone HCL PF 2 MG/ML VIAL IV PRN (12:30)
--- NOTE | 2016-04-01 13:56 | HHI.NSPN ---
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 The patient is known to Dr Preston and to Dr. Shannon. He is status post incision and drainage of a seroma collection of his buttocks, thought to be trauma-related. He has developed recurrent fluid collections and was recently admitted to the [facility]. He presented to the emergency department at [facility] on 03/28/2016 with concern due to bloody drainage from a previous incision and drainage site of his buttocks. This was evaluated by Dr. Pagan and it was concerning for possible cellulitis. Mr Wheeler denies any fevers, chills, night sweats Neurosurgical consultation was requested PHYSICAL EXAMINATION: GENERAL: The patient is an obese male who is status post right lower extremity amputation. He appears chronically ill. VITAL SIGNS: Temperature 98.4 degrees Fahrenheit, pulse 100, respiratory rate 16, blood pressure 140/64. HEAD, EYES, EARS, NOSE, THROAT: Head is normocephalic and atraumatic. Pupils equal, round and reactive to light. The sclerae are nonicteric. NECK: The neck is supple. No jugular venous distention. LUNGS: The lungs are clear to auscultation bilaterally. Nonlabored breathing pattern. HEART: Regular rate and rhythm. ABDOMEN: Abdomen is soft and nondistended. Nontender to palpation. BACK: Scar from lower lumbosacral fixation. The inferior portion of the scar has a small opening status post incised by the emergency department with old burgundy blood-tinged drainage without purulence. There is some concern for blanching edema and cellulitic change in the area of the patient's left lower back and gluteal skin. There is no obvious exposed hardware or foreign body. No necrotic tissue at all. The tissues are viable. ASSESSMENT AND PLAN: The patient is a 50-year-old male with history of a seroma status post drainage now with recurrence concerning for possible secondary infection. I do think the patient is stable; however, should be admitted for IV antibiotics and an infectious disease consultation due to the complexity of the infection. At this point in time, I do not feel we can rule out any infected hardware in this patient and he does need further evaluation by infectious disease and possibly neurosurgery and orthopedic surgery as well. ROS - General Review of Systems Constitutional: DENIES: Diaphoretic episodes, Fatigue, Fever, Weight gain, Weight loss, Chills, Dizziness, Change in appetite, Night Sweats Endocrine: DENIES: Heat/cold intolerance, Polydipsia, Polyuria, Polyphagia Eyes: DENIES: Blurred vision, Diplopia, Eye inflammation, Eye pain, Vision loss , Photosensitivity, Double Vision Ears, nose, mouth, throat: DENIES: Tinnitus, Hearing loss, Vertigo, Nasal discharge, Oral lesions, Throat pain, Hoarseness, Ear Pain, Running Nose, Epistaxis, Sinus Pain, Toothache, Odynophagia Respiratory: DENIES: Apneas, Cough, Snoring, Wheezing, Hemoptysis, Sputum production, Shortness of breath Cardiovascular: DENIES: Chest pain, Palpitations, Syncope, Dyspnea on Exertion , PND, Lower Extremity Edema, Orthopnea, Claudication Gastrointestinal: DENIES: Abdominal pain, Black stools, Bloody stools, Constipation, Diarrhea, Nausea, Vomiting, Difficulty Swallowing, Anorexia Genitourinary: DENIES: Sexual dysfunction, Urinary frequency, Urinary incontinence, Urgency, Hematuria, Dysuria, Nocturia, Penile Discharge, Testicular Pain, Testicular Swelling Musculoskeletal: DENIES: Joint pain, Muscle aches, Stiffness, Joint Swelling, Back pain, Neck pain Integumentary: DENIES: Abnormal pigmentation, Nail changes, Pruritus, Rash Hematologic/lymphatic: DENIES: Bruising, Lymphadenopathy Immunologic/allergic: DENIES: Eczema, Urticaria Neurologic: DENIES: Abnormal gait, Headache, Localized weakness, Paresthesias, Seizures, Speech Problems, Tremor, Poor Balance Psychiatric: DENIES: Anxiety, Confusion, Mood changes, Depression, Hallucinations, Agitation, Suicidal Ideation, Homicidal Ideation, Delusions PFSH Past Family Social History Allergies: Coded Allergies: Morphine (Unverified Allergy, Severe, nausea and vomiting, 03/23/16) Nonsteroidal Anti-Inflammatory Agts (Verified Adverse Reaction, Severe, INCONTINENCE, 03/23/16) Past Medical History 1. Liver cirrhosis and varices. 2. Multiple traumatic injuries. 3. Type 2 diabetes. Past Surgical History Amputation ORIF fracture morphine pump Reported Medications 1. Percocet. 2. Dilaudid. 3. Insulin. 4. Lasix. 5. Metformin. Active Ordered Medications Current Medications Ondansetron HCl (Zofran Inj) 4 mg ONCE ONCE IV Last administered on 03/28/16 05:59; Start 03/28/16 at 05:45; Stop 03/28/16 at 05:46; Status DC Oxycodone/ Acetaminophen 2 tab 2 tab ONCE ONCE PO Last administered on 06:00; Start 03/28/16 at 05:45; Stop 03/28/16 at 23:43; Status DC Vancomycin HCl 1000 mg/Sodium Chloride 250 ml @ 250 mls/hr ONCE ONCE IV Last administered on 03/28/16 08:23; Start 03/28/16 at 07:15; Stop 03/28/16 at 08:14 ; Status DC Piperacillin Sod/ Tazobactam Sod 50 ml @ 100 mls/hr ONCE ONCE IV Last administered on 03/28/16 07:17; Start 03/28/16 at 07:15; Stop 03/28/16 at 07:44 ; Status DC Sodium Chloride (NS 1000 ml Inj) 1,000 ml @ 100 mls/hr Q10H IV Last administered on 03/30/16 13:49; Start 03/28/16 at 09:18; Stop 03/30/16 at 16:26 ; Status DC IV Flush (NS Flush) 2 ml UNSCH PRN FLUSH FLUSH AFTER USING IV ACCESS Last administered on 03/31/16 17:14; Start 03/28/16 at 09:30 IV Flush (NS Flush) 2 ml BID FLUSH Last administered on 03/30/16 21:50; Start 03/28/16 at 21:00 Acetaminophen (Tylenol) 650 mg Q4H PRN PO TEMP > 100.4; Start 03/28/16 at 09:30 Ondansetron HCl (Zofran Inj) 4 mg Q6H PRN IVP NAUSEA OR VOMITING Last administered on 03/31/16 17:12; Start 03/28/16 at 09:30 Heparin Sodium (Porcine) 5000 units 5,000 units Q8H SQ Last administered on 18:22; Start 03/28/16 at 10:00 Piperacillin Sod/ Tazobactam Sod 100 ml @ 200 mls/hr Q8H IV Last administered on 03/31/16 13:13; Start 03/28/16 at 15:00; Stop 03/31/16 at 18:53; Status DC Vancomycin HCl 1000 mg/Sodium Chloride 250 ml @ 250 mls/hr Q12H IV ; Start 01/01 at 09:30; Status UNV Pharmacy Profile Note 0 ml @ 0 mls/hr UNSCH OTHER ; Start 03/28/16 at 09:30; Stop 03/31/16 at 18:38; Status DC Vancomycin HCl/ Sodium Chloride (Vancomycin Inj/ NS 500 ml Inj) 517.5 ml @ 250 mls/hr Q12H IV Last administered on 03/31/16 05:31; Start 03/28/16 at 18:00; Stop 03/31/16 at 18:38; Status DC Miscellaneous Information SPECIFIC LAB TO BE DRAWN:VANCO TROUGH DATE TO BE DR... ONCE ONCE XX Last administered on 03/30/16 05:21; Start 03/30/16 at 05: 45; Stop 03/30/16 at 05:46; Status DC Furosemide (Lasix) 20 mg DAILY PO Last administered on 03/30/16 08:56; Start 03/29/16 at 09:00; Stop 03/31/16 at 14:10; Status DC Oxycodone/ Acetaminophen (Percocet 7.5-325 Mg) 1 tab Q6H PRN PO PAIN 1-10 Last administered on 03/28/16 20:43; Start 03/28/16 at 19:00; Stop 03/28/16 at 23:43 ; Status DC Insulin Human Regular (NovoLIN R INJ) 30 units TIDAC SQ ; Start 03/29/16 at 08: 00; Stop 03/31/16 at 12:07; Status DC Oxycodone HCl (Roxicodone) 15 mg Q4H PRN PO PAIN 1-5; Start 03/28/16 at 23:45 Oxycodone HCl (Roxicodone) 30 mg Q4H PRN PO PAIN 6-10 Last administered on 2/14 /17at 17:13; Start 03/28/16 at 23:45 Furosemide (Lasix Inj) 40 mg ONCE ONCE IV PUSH Last administered on 03/30/16 16:54; Start 03/30/16 at 17:00; Stop 03/30/16 at 17:01; Status DC Albuterol/ Ipratropium (Duoneb Neb) 1 ampule Q2HR NEB PRN NEB SOB/WHEEZING; Start 03/30/16 at 17:00 Dextrose (D50w (Vial) Inj) 25 ml UNSCH PRN IV PUSH HYPOGLYCEMIA-SEE COMMENTS; Start 03/31/16 at 12:15 Glucagon (Glucagon Inj) 1 mg UNSCH PRN OTHER HYPOGLYCEMIA-SEE COMMENTS; Start 03/31/16 at 12:15 Insulin Aspart 1 1 ACHS SLIDING SCALE SQ ; Start 03/31/16 at 16:00 Sodium Chloride 1,000 ml @ 100 mls/hr Q10H IV Last administered on 03/31/16 13:13; Start 03/31/16 at 12:30 Daptomycin/Sodium Chloride (Cubicin Inj/NS Inj) 100 ml @ 200 mls/hr Q24H IV ; Start 03/31/16 at 21:00 Family History NC Social History Her smokes tobacco and occasionally drinks alcohol. Physical Exam Physical Exam Vital Signs Vital Signs Date Time Temp Pulse Resp B/P Pulse Ox O2 Delivery O2 Flow Rate FiO2 03/31/16 20:20 96.7 87 18 129/80 96 03/31/16 18:13 18 03/31/16 17:25 98.7 81 19 143/53 96 03/31/16 12:00 97.9 91 19 135/81 95 03/31/16 08:00 97.9 86 17 126/84 95 03/31/16 00:00 97.4 84 18 161/90 98 Physical Exam The patient is alert, awake and oriented to time, place and person. Speech is fluent. Cranial nerve examination: pupils to be equal, round and reactive to light. Extra-ocular movements are intact. Facial motor and sensory function are normal and symmetrical. Gross hearing appears intact. Sternocleidomastoid and trapezius muscles are symmetrical. Other cranial nerves are intact. Neck is soft and supple with a good range of motion without pain. Muscle strength is normal in all muscle groups of both upper and left lower extremities. Right lower extremity is amputated. Sensory examination is intact to light touch and pin prick in both the upper and left lower extremities. Right lower extremity is amputated. Deep tendon reflexes are symmetrical in both upper and left lower extremity. There is a left plantar flexion response. Right lower extremity is amputated. Cerebellar examination is unremarkable, without deficits. Laboratory Laboratory Tests Test 03/31/16 05:12 Creatinine 1.72 Estimat Glomerular Filtration 43 Rate Date/Time Procedure Status Source Growth 03/28/16 05:48 Gram Stain - Final Complete Wound Buttock 03/28/16 05:48 Wound Culture - Final Complete Wound Buttock HEAVY GROWTH NORMAL SKIN JOVANA... Result Diagram: 03/29/16 0519 03/31/16 0512 Imaging Last Impressions Chest X-Ray 03/30/16 0000 Signed Impressions: Service Date/Time: Wednesday, March 30, 2016 16:50 - CONCLUSION: Mild cardiomegaly with no evidence of pneumonia or pulmonary edema. Todd Rothman MD Assessment and Plan Assessment and Plan Inpatient MDM [No output description is provided] Attending Statement Labs, Micro, & Vital Signs Results Date Time Temp Pulse Resp B/P Pulse Ox O2 Delivery O2 Flow Rate FiO2 04/01/16 12:54 18 04/01/16 12:00 97.5 88 18 167/77 92 04/01/16 10:54 18 04/01/16 08:00 97.3 86 19 144/86 92 04/01/16 00:17 97.4 88 20 157/84 98 03/31/16 20:20 96.7 87 18 129/80 96 03/31/16 17:25 98.7 81 19 143/53 96 04/01/16 07:00 Intake Total 2500 ml Output Total 3800 ml Balance -1300 ml Constitutional Vital Signs Date Time Temp Pulse Resp B/P Pulse Ox O2 Delivery O2 Flow Rate FiO2 04/01/16 12:54 18 04/01/16 12:00 97.5 88 18 167/77 92 04/01/16 10:54 18 04/01/16 08:00 97.3 86 19 144/86 92 04/01/16 00:17 97.4 88 20 157/84 98 03/31/16 20:20 96.7 87 18 129/80 96 03/31/16 17:25 98.7 81 19 143/53 96 04/01/16 07:00 Intake Total 2500 ml Output Total 3800 ml Balance -1300 ml Attending Statement Neuro. continue neuro checks in a serial fashion. He has not been properly evaluated. Please obtain at least a CT or MRI of the lumbosacral spine. I do not know what kind of hardware is in this patient, the extension of the hardware and if there is any infection in his spine. Bone scan may be beneficial as well. Continue aggressive deloris spectrum IV antibiotics The patient has a morphine pump. He does not wanted it removed. I do not know if it could be infected. I do not place morphine pumps in my practice. Recommend follow up with his pain doctor, Dr Mora or to consult Dr Preston who is proficient with morphine pumps Obtain wound and blood cultures Respiratory. Continue pulmonary toilette, nasotracheal suction, and breathing treatments with nebulizers. Daily PT and OT Nutrition. Oral diet Renal. Continue to monitor closely urine output, BUN and creatinine Endocrine. Continue to Monitor serial Acu checks and SSI as needed in detail ID continue to monitor for signs of infection Continue Protonix for stress ulcer prophylaxis Continue Roberto barber and SCD's for DVT prophylaxis Obey Gambino MD Apr 01, 2016 13:56
--- NOTE | 2016-04-01 15:11 | RADRPT ---
EXAM DATE/TIME: 04/01/2016 14:23 This report includes an Addendum and supersedes previous reports for this exam. [facility] COMPARISON: SPINE LUMBAR LTD (AP & LAT), October 15, 2012, 21:41. CT LUMBAR SPINE W/O CONTRAST, July 15, 2015, 18: 39. INDICATIONS : Lower back pain. Evaluate lumbar spine hardware. RADIATION DOSE: 36.18 CTDIvol (mGy) MEDICAL HISTORY : Diabetes mellitus type 2. Gastroesophageal reflux disease. Deep venous thrombosis. Hepatitis. Cirrho sis. Pelvic fractures. Lumbar spine fractures. SURGICAL HISTORY : Lumbar spine repair. Pelvic fracture repair. Right below the knee amputation. ENCOUNTER: Initial ACUITY: 2 weeks PAIN SCALE: 9/10 LOCATION: Lumbar spine. TECHNIQUE: Volumetric scanning of the lumbar spine was performed. Multiplanar reconstructions in the sagittal, coronal and oblique axial planes were performed. Using automated exposure control and adjustment of the mA and/or kV according to patient size, radiation dose was kept as low as reasonably achievable t o obtain optimal diagnostic quality images. FINDINGS: VERTEBRAE: Normal vertebral body height. DISCS: The patient is again noted to be status post fusion through S1 levels with pedicle screws and posteri or fixation rods. There is bone grafting material in the interspaces. This region as are obscured by metal streak artifact. Bone grafting material is noted surrounding the posterior elements at the L3-4 and L4-5 levels. ALIGNMENT: No evidence of subluxation. An inferior vena caval filter is noted. T12-L1: The thecal sac has a normal diameter. No evidence of disc bulge or protrusion. The neural foramina are patent bilaterally. L1-L2: The thecal sac has a normal diameter. No evidence of disc bulge or protrusion. The neural foramina are patent bilaterally. L2-L3: There is a mild annular disc bulge with mild flattening the anterior thecal sac and no definite protr usion. There are degenerative changes involving the facet joints with mild to moderate central canal stenosis. The neural foramina are patent bilaterally. L3-L4: There is a diffuse annular disc bulge with flattening of the anterior thecal sac and no visualized pr otrusion. There is mild narrowing of the neural foramina. Postsurgical changes noted surrounding the facet joints with bone grafting material. There are pedicle screws at L4-5 and streak artifact. There is moderate central canal stenosis. L4-L5: Status post fusion with bilateral pedicle screws and posterior fixation rods. There is extensive stre ak artifact thecal sac and neural foramina are not well-visualized. L5-S1: Status post fusion with pedicle screws and posterior fixation rods. There is extensive streak artifac t with nonvisualization of the thecal sac and neural foramina. CONCLUSION: 1. The patient is status post fusion at the L4-S1 level with pedicle screws and posterior fixation ro ds. The hardware remains intact in appearance. 2. The L4-5 and L5-S1 levels are not well delineated due to streak artifact. The thecal sac and michelle chyna could not be evaluated. 3. Moderate central canal stenosis L3-4 secondary to disc bulge and degenerative change involving the facets. Todd Rothman MD on April 01, 2016 at 15:00 Board Certified Radiologist. This report was verified electronically. ADDENDUM: There are multiple small gas collections in the posterior soft tissues. The largest is located corrections identification technician ior to the L3-4 interspace along the right paraspinous musculature and measures approximately 5 x 1 c m. This is best seen on axial image #72. There are multiple smaller rounded gas collections located m ore inferiorly in the posterior soft tissues measuring approximately 0.5-2 cm in diameter. The adjace nt bony structures are intact in appearance with no definite destructive change. There is no large dr ainable fluid collection. Visualization is suboptimal due to the streak artifact. There is inflammato ry change in these regions. Todd Rothman MD on April 01, 2016 at 15:32 Board Certified Radiologist. This report was verified electronically.
[2016-04-01 16:00] VITALS: BP 159/72; PULSE 87; RESP 17; TEMP 96.8; O2SAT 92
--- NOTE | 2016-04-01 16:03 | RADRPT ---
EXAM DATE/TIME: 04/01/2016 09:36 [facility] COMPARISON: CT LUMBAR SPINE W/O CONTRAST, April 01, 2016, 14:23. PRIOR BONE SCANS: No correlative bone scan available for comparison. INDICATIONS : Draining wound along buttox. Evaluate for possible osteomyelitis... DOSE: 30.1 mCi Tc99m MDP IV TECHNIQUE: Three phase bone scan of the right buttocks was performed. MEDICAL HISTORY : Diabetes mellitus type 2. Cirrhosis. SURGICAL HISTORY : Multiple pelvic surgeris, lumbar surgery and right buttock amputation. ENCOUNTER: Initial ACUITY: 3 months PAIN SCALE: 3/10 LOCATION: Right Buttock. FINDINGS: The patient refused delayed imaging secondary to pain and the scan was not completed. Flow images wer e obtained in the supine and prone position. Composite blood pool images were also obtained. There ar e no delayed images. There is fairly symmetric arrival of the radiotracer bilaterally. There is a focal area of hyperemia noted on the right on the flow and blood pool images. There are no delayed images. CONCLUSION: 1. Suboptimal incomplete study with no delayed imaging. 2. Focal area of hyperemia on the right on the flow and blood pool images. This is nonspecific and co uld represent cellulitis. Osteomyelitis cannot be excluded without delayed images. Todd Rothman MD on April 01, 2016 at 15:47 Board Certified Radiologist. This report was verified electronically.
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
[2016-04-01] MEDS ORDERED: cloNIDine HCL 0.1 MG TAB PO PRN (16:45)
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
[2016-04-01 20:00] VITALS: BP 151/93; PULSE 100; RESP 20; TEMP 96.2; O2SAT 97
[2016-04-01] MEDS: DAPTOmycin INJ 900 MG in SODIUM CHLORIDE 0.9% INJ 100 ML IV SCH (22:09)
--- NOTE | 2016-04-01 22:52 | RADRPT ---
EXAM DATE/TIME: 04/01/2016 22:13 [facility] COMPARISON: No previous studies available for comparison. INDICATIONS : Increased BUN and Creatinine. MEDICAL HISTORY : Deep venous thrombosis. Gastroesophageal reflux disease. Cirrhosis. Esophageal varices. Fracture pelv is. Fracture back. Herniated cervical disc. Diabetes. Blood transfusion. SURGICAL HISTORY : Coronary artery stent. Sabas filter. Multiple pelvic surgeries. Right below the knee amputat ion. ENCOUNTER: Initial ACUITY: 1 day PAIN SCORE: 3/10 LOCATION: Bilateral flank MEASUREMENTS: RIGHT KIDNEY: 15.1 x 7.9 x 9.1 cm LEFT KIDNEY: 14.2 x 6.9 x 6.8 cm FINDINGS: KIDNEYS: Kidneys appear enlarged. No hydronephrosis is seen. BLADDER: Within normal limits given the degree of distension. OTHER: The spleen is enlarged measuring 18 cm in length. CONCLUSION: 1. Enlargement of the kidneys bilaterally. 2. Splenic enlargement. Miguel Skelton MD on April 01, 2016 at 22:49 Board Certified Radiologist. This report was verified electronically.
[2016-04-02 00:22] VITALS: BP 135/87; PULSE 97; RESP 20; TEMP 96.7; O2SAT 97
[2016-04-02] MEDS ORDERED: CALCIUM CARBONATE 500 MG CHEWABLE TAB CHEW ONE (00:45)
[2016-04-02] MEDS: HEPARIN SODIUM - SQ 10,000 UNITS/ML VIAL SQ SCH ×3 (00:52→16:35)
[2016-04-02 06:10] LABS: BICARBONATE 31.2 MEQ/L (21.0-32.0); POTASSIUM 3.5 MEQ/L (3.5-5.1)
[2016-04-02] MEDS: INSULIN ASPART SUPPLEMENTAL SCALE SQ SCH ×4 (06:44→21:13)
[2016-04-02 08:00] VITALS: BP 128/76; PULSE 89; RESP 20; TEMP 97.7; O2SAT 94
[2016-04-02] MEDS: SODIUM CHLORIDE 0.9% FLUSH 5 ML FLUSH FLUSH SCH ×2 (09:09→21:12)
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
[2016-04-02] MEDS ORDERED: HYDROmorphone HCL PF 2 MG/ML VIAL IV PRN (10:00)
[2016-04-02] MEDS ORDERED: LORazepam 2 MG/ML VIAL IV PRN (10:00)
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
[2016-04-02 12:00] VITALS: BP 144/81; PULSE 95; RESP 16; TEMP 98.8; O2SAT 94
[2016-04-02 16:00] VITALS: BP 118/79; PULSE 104; RESP 17; TEMP 99.9; O2SAT 92
--- NOTE | 2016-04-02 16:06 | RADRPT ---
EXAM DATE/TIME: 04/02/2016 14:40 [facility] COMPARISON: No previous studies available for comparison. INDICATIONS : Abscess. MEDICAL HISTORY : Deep venous thrombosis. Cirrhosis. Diabetes. Esophageal varices. SURGICAL HISTORY : Pain pump implatation. Cardiac stent. Pelvis reconstruction. Right BKA. ENCOUNTER: Subsequent ACUITY: 4-6 months PAIN SCORE: 8/10 LOCATION: Lower back. TECHNIQUE: Multiplanar multisequence MRI of the lumbar spine was performed without contrast. FINDINGS: The most caudal appearing lumbar vertebra is numbered as L5. VERTEBRAE: Orthopedic hardware is seen involving the lower lumbar spine. This totally obscures the lumbar spine at L4, L5, and S1. The remaining marrow signal is unremarkable. CONUS: Normal level and configuration. T12-L1: The thecal sac has a normal diameter. No evidence of disc bulge or protrusion. The neural foramina are patent bilaterally. L1-L2: The thecal sac has a normal diameter. No evidence of disc bulge or protrusion. The neural foramina are patent bilaterally. L2-L3: The thecal sac has a normal diameter. No evidence of disc bulge or protrusion. The neural foramina are patent bilaterally. L3-L4: The thecal sac has a normal diameter. No evidence of disc bulge or protrusion. The neural foramina are patent bilaterally. L4-L5: Totally obscured. L5-S1: Totally obscured. CONCLUSION: 1. Orthopedic hardware totally obscures L4-S1. 2. No abscess observed on these limited images. Christoph Deng Jr., MD on April 02, 2016 at 16:00 Board Certified Radiologist. This report was verified electronically.
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
--- NOTE | 2016-04-02 18:42 | HHI.NSPN ---
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 The patient is known to Dr Preston and to Dr. Shannon. He is status post incision and drainage of a seroma collection of his buttocks, thought to be trauma-related. He has developed recurrent fluid collections and was recently admitted to the [facility]. He presented to the emergency department at [facility] on 03/28/2016 with concern due to bloody drainage from a previous incision and drainage site of his buttocks. This was evaluated by Dr. Pagan and it was concerning for possible cellulitis. Mr Wheeler denies any fevers, chills, night sweats Neurosurgical consultation was requested 04/02. he continues to suffer from chronic pain without deficits. He underwent a CT of the lumbar spine. PHYSICAL EXAMINATION: GENERAL: The patient is an obese male who is status post right lower extremity amputation. He appears chronically ill. VITAL SIGNS: Temperature 98.4 degrees Fahrenheit, pulse 100, respiratory rate 16, blood pressure 140/64. HEAD, EYES, EARS, NOSE, THROAT: Head is normocephalic and atraumatic. Pupils equal, round and reactive to light. The sclerae are nonicteric. NECK: The neck is supple. No jugular venous distention. LUNGS: The lungs are clear to auscultation bilaterally. Nonlabored breathing pattern. HEART: Regular rate and rhythm. ABDOMEN: Abdomen is soft and nondistended. Nontender to palpation. BACK: Scar from lower lumbosacral fixation. The inferior portion of the scar has a small opening status post incised by the emergency department with old burgundy blood-tinged drainage without purulence. There is some concern for blanching edema and cellulitic change in the area of the patient's left lower back and gluteal skin. There is no obvious exposed hardware or foreign body. No necrotic tissue at all. The tissues are viable. ASSESSMENT AND PLAN: The patient is a 50-year-old male with history of a seroma status post drainage now with recurrence concerning for possible secondary infection. I do think the patient is stable; however, should be admitted for IV antibiotics and an infectious disease consultation due to the complexity of the infection. At this point in time, I do not feel we can rule out any infected hardware in this patient and he does need further evaluation by infectious disease and possibly neurosurgery and orthopedic surgery as well. ROS - General Review of Systems Constitutional: DENIES: Diaphoretic episodes, Fatigue, Fever, Weight gain, Weight loss, Chills, Dizziness, Change in appetite, Night Sweats Endocrine: DENIES: Heat/cold intolerance, Polydipsia, Polyuria, Polyphagia Eyes: DENIES: Blurred vision, Diplopia, Eye inflammation, Eye pain, Vision loss , Photosensitivity, Double Vision Ears, nose, mouth, throat: DENIES: Tinnitus, Hearing loss, Vertigo, Nasal discharge, Oral lesions, Throat pain, Hoarseness, Ear Pain, Running Nose, Epistaxis, Sinus Pain, Toothache, Odynophagia Respiratory: DENIES: Apneas, Cough, Snoring, Wheezing, Hemoptysis, Sputum production, Shortness of breath Cardiovascular: DENIES: Chest pain, Palpitations, Syncope, Dyspnea on Exertion , PND, Lower Extremity Edema, Orthopnea, Claudication Gastrointestinal: DENIES: Abdominal pain, Black stools, Bloody stools, Constipation, Diarrhea, Nausea, Vomiting, Difficulty Swallowing, Anorexia Genitourinary: DENIES: Sexual dysfunction, Urinary frequency, Urinary incontinence, Urgency, Hematuria, Dysuria, Nocturia, Penile Discharge, Testicular Pain, Testicular Swelling Musculoskeletal: DENIES: Joint pain, Muscle aches, Stiffness, Joint Swelling, Back pain, Neck pain Integumentary: DENIES: Abnormal pigmentation, Nail changes, Pruritus, Rash Hematologic/lymphatic: DENIES: Bruising, Lymphadenopathy Immunologic/allergic: DENIES: Eczema, Urticaria Neurologic: DENIES: Abnormal gait, Headache, Localized weakness, Paresthesias, Seizures, Speech Problems, Tremor, Poor Balance Psychiatric: DENIES: Anxiety, Confusion, Mood changes, Depression, Hallucinations, Agitation, Suicidal Ideation, Homicidal Ideation, Delusions PFSH Past Family Social History Allergies: Coded Allergies: Morphine (Unverified Allergy, Severe, nausea and vomiting, 03/23/16) Nonsteroidal Anti-Inflammatory Agts (Verified Adverse Reaction, Severe, INCONTINENCE, 03/23/16) Past Medical History 1. Liver cirrhosis and varices. 2. Multiple traumatic injuries. 3. Type 2 diabetes. Past Surgical History Amputation ORIF fracture morphine pump Reported Medications 1. Percocet. 2. Dilaudid. 3. Insulin. 4. Lasix. 5. Metformin. Active Ordered Medications Current Medications Ondansetron HCl (Zofran Inj) 4 mg ONCE ONCE IV Last administered on 03/28/16 05:59; Start 03/28/16 at 05:45; Stop 03/28/16 at 05:46; Status DC Oxycodone/ Acetaminophen 2 tab 2 tab ONCE ONCE PO Last administered on 06:00; Start 03/28/16 at 05:45; Stop 03/28/16 at 23:43; Status DC Vancomycin HCl 1000 mg/Sodium Chloride 250 ml @ 250 mls/hr ONCE ONCE IV Last administered on 03/28/16 08:23; Start 03/28/16 at 07:15; Stop 03/28/16 at 08:14 ; Status DC Piperacillin Sod/ Tazobactam Sod 50 ml @ 100 mls/hr ONCE ONCE IV Last administered on 03/28/16 07:17; Start 03/28/16 at 07:15; Stop 03/28/16 at 07:44 ; Status DC Sodium Chloride (NS 1000 ml Inj) 1,000 ml @ 100 mls/hr Q10H IV Last administered on 03/30/16 13:49; Start 03/28/16 at 09:18; Stop 03/30/16 at 16:26 ; Status DC IV Flush (NS Flush) 2 ml UNSCH PRN FLUSH FLUSH AFTER USING IV ACCESS Last administered on 03/31/16 17:14; Start 03/28/16 at 09:30 IV Flush (NS Flush) 2 ml BID FLUSH Last administered on 03/30/16 21:50; Start 03/28/16 at 21:00 Acetaminophen (Tylenol) 650 mg Q4H PRN PO TEMP > 100.4; Start 03/28/16 at 09:30 Ondansetron HCl (Zofran Inj) 4 mg Q6H PRN IVP NAUSEA OR VOMITING Last administered on 03/31/16 17:12; Start 03/28/16 at 09:30 Heparin Sodium (Porcine) 5000 units 5,000 units Q8H SQ Last administered on 18:22; Start 03/28/16 at 10:00 Piperacillin Sod/ Tazobactam Sod 100 ml @ 200 mls/hr Q8H IV Last administered on 03/31/16 13:13; Start 03/28/16 at 15:00; Stop 03/31/16 at 18:53; Status DC Vancomycin HCl 1000 mg/Sodium Chloride 250 ml @ 250 mls/hr Q12H IV ; Start 01/01 at 09:30; Status UNV Pharmacy Profile Note 0 ml @ 0 mls/hr UNSCH OTHER ; Start 03/28/16 at 09:30; Stop 03/31/16 at 18:38; Status DC Vancomycin HCl/ Sodium Chloride (Vancomycin Inj/ NS 500 ml Inj) 517.5 ml @ 250 mls/hr Q12H IV Last administered on 03/31/16 05:31; Start 03/28/16 at 18:00; Stop 03/31/16 at 18:38; Status DC Miscellaneous Information SPECIFIC LAB TO BE DRAWN:VANCO TROUGH DATE TO BE DR... ONCE ONCE XX Last administered on 03/30/16 05:21; Start 03/30/16 at 05: 45; Stop 03/30/16 at 05:46; Status DC Furosemide (Lasix) 20 mg DAILY PO Last administered on 03/30/16 08:56; Start 03/29/16 at 09:00; Stop 03/31/16 at 14:10; Status DC Oxycodone/ Acetaminophen (Percocet 7.5-325 Mg) 1 tab Q6H PRN PO PAIN 1-10 Last administered on 03/28/16 20:43; Start 03/28/16 at 19:00; Stop 03/28/16 at 23:43 ; Status DC Insulin Human Regular (NovoLIN R INJ) 30 units TIDAC SQ ; Start 03/29/16 at 08: 00; Stop 03/31/16 at 12:07; Status DC Oxycodone HCl (Roxicodone) 15 mg Q4H PRN PO PAIN 1-5; Start 03/28/16 at 23:45 Oxycodone HCl (Roxicodone) 30 mg Q4H PRN PO PAIN 6-10 Last administered on 03/31 17:13; Start 03/28/16 at 23:45 Furosemide (Lasix Inj) 40 mg ONCE ONCE IV PUSH Last administered on 03/30/16 16:54; Start 03/30/16 at 17:00; Stop 03/30/16 at 17:01; Status DC Albuterol/ Ipratropium (Duoneb Neb) 1 ampule Q2HR NEB PRN NEB SOB/WHEEZING; Start 03/30/16 at 17:00 Dextrose (D50w (Vial) Inj) 25 ml UNSCH PRN IV PUSH HYPOGLYCEMIA-SEE COMMENTS; Start 03/31/16 at 12:15 Glucagon (Glucagon Inj) 1 mg UNSCH PRN OTHER HYPOGLYCEMIA-SEE COMMENTS; Start 03/31/16 at 12:15 Insulin Aspart 1 1 ACHS SLIDING SCALE SQ ; Start 03/31/16 at 16:00 Sodium Chloride 1,000 ml @ 100 mls/hr Q10H IV Last administered on 03/31/16 13:13; Start 03/31/16 at 12:30 Daptomycin/Sodium Chloride (Cubicin Inj/NS Inj) 100 ml @ 200 mls/hr Q24H IV ; Start 03/31/16 at 21:00 Family History NC Social History Her smokes tobacco and occasionally drinks alcohol. Physical Exam Physical Exam Vital Signs Vital Signs Date Time Temp Pulse Resp B/P Pulse Ox O2 Delivery O2 Flow Rate FiO2 03/31/16 20:20 96.7 87 18 129/80 96 03/31/16 18:13 18 03/31/16 17:25 98.7 81 19 143/53 96 03/31/16 12:00 97.9 91 19 135/81 95 03/31/16 08:00 97.9 86 17 126/84 95 03/31/16 00:00 97.4 84 18 161/90 98 Physical Exam The patient is alert, awake and oriented to time, place and person. Speech is fluent. Cranial nerve examination: pupils to be equal, round and reactive to light. Extra-ocular movements are intact. Facial motor and sensory function are normal and symmetrical. Gross hearing appears intact. Sternocleidomastoid and trapezius muscles are symmetrical. Other cranial nerves are intact. Neck is soft and supple with a good range of motion without pain. Muscle strength is normal in all muscle groups of both upper and left lower extremities. Right lower extremity is amputated. Sensory examination is intact to light touch and pin prick in both the upper and left lower extremities. Right lower extremity is amputated. Deep tendon reflexes are symmetrical in both upper and left lower extremity. There is a left plantar flexion response. Right lower extremity is amputated. Cerebellar examination is unremarkable, without deficits. Laboratory Laboratory Tests Test 03/31/16 05:12 Creatinine 1.72 Estimat Glomerular Filtration 43 Rate Date/Time Procedure Status Source Growth 03/28/16 05:48 Gram Stain - Final Complete Wound Buttock 03/28/16 05:48 Wound Culture - Final Complete Wound Buttock HEAVY GROWTH NORMAL SKIN JOVANA... Result Diagram: 03/29/16 0519 03/31/16 0512 Imaging Last Impressions Chest X-Ray 03/30/16 0000 Signed Impressions: Service Date/Time: Wednesday, March 30, 2016 16:50 - CONCLUSION: Mild cardiomegaly with no evidence of pneumonia or pulmonary edema. Todd Rothman MD Assessment and Plan Assessment and Plan Inpatient MDM [No output description is provided] Attending Statement Labs, Micro, & Vital Signs Results Date Time Temp Pulse Resp B/P Pulse Ox O2 Delivery O2 Flow Rate FiO2 04/02/16 12:37 20 04/02/16 12:00 98.8 95 16 144/81 94 04/02/16 08:00 97.7 89 20 128/76 94 04/02/16 00:22 96.7 97 20 135/87 97 04/01/16 20:00 96.2 100 20 151/93 97 04/02/16 07:00 Intake Total 2480 ml Output Total 3700 ml Balance -1220 ml Constitutional Vital Signs Date Time Temp Pulse Resp B/P Pulse Ox O2 Delivery O2 Flow Rate FiO2 04/02/16 12:37 20 04/02/16 12:00 98.8 95 16 144/81 94 04/02/16 08:00 97.7 89 20 128/76 94 04/02/16 00:22 96.7 97 20 135/87 97 04/01/16 20:00 96.2 100 20 151/93 97 04/02/16 07:00 Intake Total 2480 ml Output Total 3700 ml Balance -1220 ml Medications Current Medications Current Medications Ondansetron HCl (Zofran Inj) 4 mg ONCE ONCE IV Last administered on 03/28/16 05:59; Start 03/28/16 at 05:45; Stop 03/28/16 at 05:46; Status DC Oxycodone/ Acetaminophen 2 tab 2 tab ONCE ONCE PO Last administered on 06:00; Start 03/28/16 at 05:45; Stop 03/28/16 at 23:43; Status DC Vancomycin HCl 1000 mg/Sodium Chloride 250 ml @ 250 mls/hr ONCE ONCE IV Last administered on 03/28/16 08:23; Start 03/28/16 at 07:15; Stop 03/28/16 at 08:14 ; Status DC Piperacillin Sod/ Tazobactam Sod 50 ml @ 100 mls/hr ONCE ONCE IV Last administered on 03/28/16 07:17; Start 03/28/16 at 07:15; Stop 03/28/16 at 07:44 ; Status DC Sodium Chloride (NS 1000 ml Inj) 1,000 ml @ 100 mls/hr Q10H IV Last administered on 03/30/16 13:49; Start 03/28/16 at 09:18; Stop 03/30/16 at 16:26 ; Status DC IV Flush (NS Flush) 2 ml UNSCH PRN FLUSH FLUSH AFTER USING IV ACCESS Last administered on 04/01/16 12:25; Start 03/28/16 at 09:30 IV Flush (NS Flush) 2 ml BID FLUSH Last administered on 04/02/16 09:09; Start 03/28/16 at 21:00 Acetaminophen (Tylenol) 650 mg Q4H PRN PO TEMP > 100.4; Start 03/28/16 at 09:30 Ondansetron HCl (Zofran Inj) 4 mg Q6H PRN IVP NAUSEA OR VOMITING Last administered on 04/01/16 23:37; Start 03/28/16 at 09:30 Heparin Sodium (Porcine) 5000 units 5,000 units Q8H SQ Last administered on 16:35; Start 03/28/16 at 10:00 Piperacillin Sod/ Tazobactam Sod 100 ml @ 200 mls/hr Q8H IV Last administered on 03/31/16 13:13; Start 03/28/16 at 15:00; Stop 03/31/16 at 18:53; Status DC Vancomycin HCl 1000 mg/Sodium Chloride 250 ml @ 250 mls/hr Q12H IV ; Start 01/01 at 09:30; Status UNV Pharmacy Profile Note 0 ml @ 0 mls/hr UNSCH OTHER ; Start 03/28/16 at 09:30; Stop 03/31/16 at 18:38; Status DC Vancomycin HCl/ Sodium Chloride (Vancomycin Inj/ NS 500 ml Inj) 517.5 ml @ 250 mls/hr Q12H IV Last administered on 03/31/16 05:31; Start 03/28/16 at 18:00; Stop 03/31/16 at 18:38; Status DC Miscellaneous Information SPECIFIC LAB TO BE DRAWN:VANCO TROUGH DATE TO BE DR... ONCE ONCE XX Last administered on 03/30/16 05:21; Start 03/30/16 at 05: 45; Stop 03/30/16 at 05:46; Status DC Furosemide (Lasix) 20 mg DAILY PO Last administered on 03/30/16 08:56; Start 03/29/16 at 09:00; Stop 03/31/16 at 14:10; Status DC Oxycodone/ Acetaminophen (Percocet 7.5-325 Mg) 1 tab Q6H PRN PO PAIN 1-10 Last administered on 03/28/16 20:43; Start 03/28/16 at 19:00; Stop 03/28/16 at 23:43 ; Status DC Insulin Human Regular (NovoLIN R INJ) 30 units TIDAC SQ ; Start 03/29/16 at 08: 00; Stop 03/31/16 at 12:07; Status DC Oxycodone HCl (Roxicodone) 15 mg Q4H PRN PO PAIN 1-5; Start 03/28/16 at 23:45 Oxycodone HCl (Roxicodone) 30 mg Q4H PRN PO PAIN 6-10 Last administered on 04/02 17:33; Start 03/28/16 at 23:45 Furosemide (Lasix Inj) 40 mg ONCE ONCE IV PUSH Last administered on 03/30/16 16:54; Start 03/30/16 at 17:00; Stop 03/30/16 at 17:01; Status DC Albuterol/ Ipratropium (Duoneb Neb) 1 ampule Q2HR NEB PRN NEB SOB/WHEEZING; Start 03/30/16 at 17:00 Dextrose (D50w (Vial) Inj) 25 ml UNSCH PRN IV PUSH HYPOGLYCEMIA-SEE COMMENTS; Start 03/31/16 at 12:15 Glucagon (Glucagon Inj) 1 mg UNSCH PRN OTHER HYPOGLYCEMIA-SEE COMMENTS; Start 03/31/16 at 12:15 Insulin Aspart 1 1 ACHS SLIDING SCALE SQ Last administered on 04/02/16 16:35 ; Start 03/31/16 at 16:00 Sodium Chloride 1,000 ml @ 100 mls/hr Q10H IV Last administered on 03/31/16 22:37; Start 03/31/16 at 12:30; Stop 04/01/16 at 16:49; Status DC Daptomycin/Sodium Chloride (Cubicin Inj/NS Inj) 100 ml @ 200 mls/hr Q24H IV Last administered on 04/01/16 22:09; Start 03/31/16 at 21:00 Hydromorphone HCl (Dilaudid Pf Inj) 1 mg Q4H PRN IV PUSH BREAKTHROUGH PAIN; Start 04/01/16 at 10:45 Hydromorphone HCl (Dilaudid Pf Inj) 2 mg Q6H PRN IV PAIN PRE-PROCEDURE Last administered on 04/01/16 12:24; Start 04/01/16 at 12:30 Clonidine (Catapres) 0.1 mg Q6H PRN PO SYS BP GREATER THAN 160 MMHG; Start at 16:45 Calcium Carbonate (Tums Chew) 500 mg ONCE ONCE CHEW Last administered on 00:53; Start 04/02/16 at 00:45; Stop 04/02/16 at 00:46; Status DC Lorazepam (Ativan Inj) 1 mg UNSCH X1 PRN IV FOR MRI; Start 04/02/16 at 10:00; Stop 04/03/16 at 09:59 Hydromorphone HCl (Dilaudid Pf Inj) 2 mg UNSCH X1 PRN IV FOR MRI; Start at 10:00; Stop 04/03/16 at 09:59 Insulin Detemir (Levemir Inj) 10 units HS SQ ; Start 04/02/16 at 21:00 Medical Decision Making MDM Remarks Last Impressions Lumbar Spine MRI 04/02/16 0000 Signed Impressions: Service Date/Time: March 14:40 - CONCLUSION: 1. Orthopedic hardware totally obscures L4-S1. 2. No abscess observed on these limited images. Christoph Deng Jr., MD Renal Ultrasound 04/01/16 0000 Signed Impressions: Service Date/Time: Friday, April 01, 2016 22:13 - CONCLUSION: 1. Enlargement of the kidneys bilaterally. 2. Splenic enlargement. Miguel Skelton MD Lumbar Spine CT 04/01/16 0000 Signed Impressions: Service Date/Time: Friday, April 01, 2016 14:23 - CONCLUSION: 1. The patient is status post fusion at the L4-S1 level with pedicle screws and posterior fixation rods. The hardware remains intact in appearance. 2. The L4- 5 and L5-S1 levels are not well delineated due to streak artifact. The thecal sac and foramina could not be evaluated. 3. Moderate central canal stenosis L3-4 secondary to disc bulge and degenerative change involving the facets. Todd Rothman MD ADDENDUM: There are multiple small gas collections in the posterior soft tissues. The largest is located posterior to the L3-4 interspace along the right paraspinous musculature and measures approximately 5 x 1 cm. This is best seen on axial image #72. There are multiple smaller rounded gas collections located more inferiorly in the posterior soft tissues measuring approximately 0.5-2 cm in diameter. The adjacent bony structures are intact in appearance with no definite destructive change. There is no large drainable fluid collection. Visualization is suboptimal due to the streak artifact. There is inflammatory change in these regions. Todd Rothman MD Bone Scan Nuclear Medicine 04/01/16 0000 Signed Impressions: Service Date/Time: Friday, April 01, 2016 09:36 - CONCLUSION: 1. Suboptimal incomplete study with no delayed imaging. 2. Focal area of hyperemia on the right on the flow and blood pool images. This is nonspecific and could represent cellulitis. Osteomyelitis cannot be excluded without delayed images. Todd Rothman MD Chest X-Ray 03/30/16 0000 Signed Impressions: Service Date/Time: Wednesday, March 30, 2016 16:50 - CONCLUSION: Mild cardiomegaly with no evidence of pneumonia or pulmonary edema. Todd Rothman MD Attending Statement Neuro. continue neuro checks iI reviewed hi8s CT of the lumbosacral spine. I do not have enougth evidence that his hardware needs to be removed. He has a very complex instrumentation which will be very difficult to remove, with potential blood and postoperative morbidity. his albumin is very low which will impare postoperative healing. I have discussed his care with Dr Srinivasan Shannon, Dr Phil Siegel, and Dr Lynne. Her will benefit by transfer to infectious disease to a [facility] center such as the [facility] for further evaluation and treatment Continue aggressive broad spectrum IV antibiotics The patient has a morphine pump. He does not wanted it removed. I do not know if it could be infected. I do not place morphine pumps in my practice. Recommend follow up with his pain doctor, Dr Mora or to consult Dr Preston who is proficient with morphine pumps Obtain wound and blood cultures Respiratory. Continue pulmonary toilette, nasotracheal suction, and breathing treatments with nebulizers. Daily PT and OT Nutrition. Oral diet Renal. DC nephrotoxoc drugs. Agressive hydration. Follow up BUN and creatinine. Endocrine. Continue to Monitor serial Acu checks and SSI as needed in detail ID continue to monitor for signs of infection Continue Protonix for stress ulcer prophylaxis Continue Roberto hose and SCD's for DVT prophylaxis Please transfer to a university setting Obey Gambino MD Apr 02, 2016 18:42
--- NOTE | 2016-04-02 19:24 | HHI.NPPN ---
Subjective History of Present Illness This patient is a 50-year-old male apparently with a history of cirrhosis related to EtOH use, diabetes mellitus who was admitted on March for what was described as a midline wound infection. His creatinine on presentation was 0.62. Patient was initially on Zosyn and vancomycin which was discontinued yesterday. Placed on daptomycin day prior to consultation. Creatinine level noted to have been 1.7 to yesterday and 1.91 today. Patient indicated that he has been trying to maintain an adequate fluid intake. No history of nausea, vomiting or diarrhea. No apparent NSAID usage. He is a history of chronic lower extremity edema. Interval History On questioning the patient did indicate that he had some wheezing. He also indicated that he has been told that he has hepatitis C initially but subsequently told that he did not. Noted that patient may be transferred to a tertiary institution. Review of Systems Respiratory Lungs: Wheeze Cardiovascular Cardiac: Edema Objective Data Data 04/01/16 04/02/16 19:00 07:00 Intake Total 940 ml 1540 ml Output Total 500 ml 3200 ml Balance 440 ml -1660 ml Intake Oral 940 ml 1540 ml Output Urine Total 500 ml 3200 ml # Bowel Movements 1 Vital Signs Date Time Temp Pulse Resp B/P Pulse Ox O2 Delivery O2 Flow Rate FiO2 04/02/16 12:37 20 04/02/16 12:00 98.8 95 16 144/81 94 04/02/16 08:00 97.7 89 20 128/76 94 04/02/16 00:22 96.7 97 20 135/87 97 04/01/16 20:00 96.2 100 20 151/93 97 -: 04/01/16 0657 04/02/16 0513 Medication Review Current Medications Ondansetron HCl (Zofran Inj) 4 mg ONCE ONCE IV Last administered on 03/28/16 05:59; Start 03/28/16 at 05:45; Stop 03/28/16 at 05:46; Status DC Oxycodone/ Acetaminophen 2 tab 2 tab ONCE ONCE PO Last administered on 06:00; Start 03/28/16 at 05:45; Stop 03/28/16 at 23:43; Status DC Vancomycin HCl 1000 mg/Sodium Chloride 250 ml @ 250 mls/hr ONCE ONCE IV Last administered on 03/28/16 08:23; Start 03/28/16 at 07:15; Stop 03/28/16 at 08:14 ; Status DC Piperacillin Sod/ Tazobactam Sod 50 ml @ 100 mls/hr ONCE ONCE IV Last administered on 03/28/16 07:17; Start 03/28/16 at 07:15; Stop 03/28/16 at 07:44 ; Status DC Sodium Chloride (NS 1000 ml Inj) 1,000 ml @ 100 mls/hr Q10H IV Last administered on 03/30/16 13:49; Start 03/28/16 at 09:18; Stop 03/30/16 at 16:26 ; Status DC IV Flush (NS Flush) 2 ml UNSCH PRN FLUSH FLUSH AFTER USING IV ACCESS Last administered on 04/01/16 12:25; Start 03/28/16 at 09:30 IV Flush (NS Flush) 2 ml BID FLUSH Last administered on 04/02/16 09:09; Start 03/28/16 at 21:00 Acetaminophen (Tylenol) 650 mg Q4H PRN PO TEMP > 100.4; Start 03/28/16 at 09:30 Ondansetron HCl (Zofran Inj) 4 mg Q6H PRN IVP NAUSEA OR VOMITING Last administered on 04/01/16 23:37; Start 03/28/16 at 09:30 Heparin Sodium (Porcine) 5000 units 5,000 units Q8H SQ Last administered on 16:35; Start 03/28/16 at 10:00 Piperacillin Sod/ Tazobactam Sod 100 ml @ 200 mls/hr Q8H IV Last administered on 03/31/16 13:13; Start 03/28/16 at 15:00; Stop 03/31/16 at 18:53; Status DC Vancomycin HCl 1000 mg/Sodium Chloride 250 ml @ 250 mls/hr Q12H IV ; Start 01/01 at 09:30; Status UNV Pharmacy Profile Note 0 ml @ 0 mls/hr UNSCH OTHER ; Start 03/28/16 at 09:30; Stop 03/31/16 at 18:38; Status DC Vancomycin HCl/ Sodium Chloride (Vancomycin Inj/ NS 500 ml Inj) 517.5 ml @ 250 mls/hr Q12H IV Last administered on 03/31/16 05:31; Start 03/28/16 at 18:00; Stop 03/31/16 at 18:38; Status DC Miscellaneous Information SPECIFIC LAB TO BE DRAWN:AMBER TROUGH DATE TO BE DRErika.. ONCE ONCE XX Last administered on 03/30/16 05:21; Start 03/30/16 at 05: 45; Stop 03/30/16 at 05:46; Status DC Furosemide (Lasix) 20 mg DAILY PO Last administered on 03/30/16 08:56; Start 03/29/16 at 09:00; Stop 03/31/16 at 14:10; Status DC Oxycodone/ Acetaminophen (Percocet 7.5-325 Mg) 1 tab Q6H PRN PO PAIN 1-10 Last administered on 03/28/16 20:43; Start 03/28/16 at 19:00; Stop 03/28/16 at 23:43 ; Status DC Insulin Human Regular (NovoLIN R INJ) 30 units TIDAC SQ ; Start 03/29/16 at 08: 00; Stop 03/31/16 at 12:07; Status DC Oxycodone HCl (Roxicodone) 15 mg Q4H PRN PO PAIN 1-5; Start 03/28/16 at 23:45 Oxycodone HCl (Roxicodone) 30 mg Q4H PRN PO PAIN 6-10 Last administered on 04/02 17:33; Start 03/28/16 at 23:45 Furosemide (Lasix Inj) 40 mg ONCE ONCE IV PUSH Last administered on 03/30/16 16:54; Start 03/30/16 at 17:00; Stop 03/30/16 at 17:01; Status DC Albuterol/ Ipratropium (Duoneb Neb) 1 ampule Q2HR NEB PRN NEB SOB/WHEEZING; Start 03/30/16 at 17:00 Dextrose (D50w (Vial) Inj) 25 ml UNSCH PRN IV PUSH HYPOGLYCEMIA-SEE COMMENTS; Start 03/31/16 at 12:15 Glucagon (Glucagon Inj) 1 mg UNSCH PRN OTHER HYPOGLYCEMIA-SEE COMMENTS; Start 03/31/16 at 12:15 Insulin Aspart 1 1 ACHS SLIDING SCALE SQ Last administered on 04/02/16 16:35 ; Start 03/31/16 at 16:00 Sodium Chloride 1,000 ml @ 100 mls/hr Q10H IV Last administered on 03/31/16 22:37; Start 03/31/16 at 12:30; Stop 04/01/16 at 16:49; Status DC Daptomycin/Sodium Chloride (Cubicin Inj/NS Inj) 100 ml @ 200 mls/hr Q24H IV Last administered on 04/01/16 22:09; Start 03/31/16 at 21:00 Hydromorphone HCl (Dilaudid Pf Inj) 1 mg Q4H PRN IV PUSH BREAKTHROUGH PAIN; Start 04/01/16 at 10:45 Hydromorphone HCl (Dilaudid Pf Inj) 2 mg Q6H PRN IV PAIN PRE-PROCEDURE Last administered on 04/01/16 12:24; Start 04/01/16 at 12:30 Clonidine (Catapres) 0.1 mg Q6H PRN PO SYS BP GREATER THAN 160 MMHG; Start at 16:45 Calcium Carbonate (Tums Chew) 500 mg ONCE ONCE CHEW Last administered on 00:53; Start 04/02/16 at 00:45; Stop 04/02/16 at 00:46; Status DC Lorazepam (Ativan Inj) 1 mg UNSCH X1 PRN IV FOR MRI; Start 04/02/16 at 10:00; Stop 04/03/16 at 09:59 Hydromorphone HCl (Dilaudid Pf Inj) 2 mg UNSCH X1 PRN IV FOR MRI; Start at 10:00; Stop 04/03/16 at 09:59 Insulin Detemir (Levemir Inj) 10 units HS SQ ; Start 04/02/16 at 21:00 Physical Exam General Appearance: Obese Eyes Eye Exam: Sclera White Neck Neck Exam: Trachea Midline Pulmonary Resp Exam: Breath Sounds Equal Resp Remarks Few expiratory wheezes bilaterally. Cardiology CV Exam: Regular, Normal Sinus Rhythm Gastrointestinal/Abdomen GI Exam: Soft, Non-Tender, Non-Distended Extremeties Extremities Exam: Moderate Edema (edema involving his leg 3+ with 2+ pitting edema above the knee.) Assessment/Plan Discussed Condition With: Patient Problem List: (1) Acute kidney insufficiency Plan: Patient's creatinine level is slightly improved. Suspect that he may have had vancomycin nephrotoxicity at this point in time. Patient also appears to have significant fluid retention I believe it would be prudent to give him 1 dose of furosemide especially in view of respiratory symptoms. Hopefully his renal indices will continue to improve. Based on his history I suspect that the patient has had a positive hepatitis C antibody in the past but may have had a negative hepatitis C PCR. For completeness we'll check his hepatitis PCR again. Medications should be adjusted for the patient's estimated GFR if clinically indicated. Avoid agents with significant potential for nephrotoxicity possible including NSAIDs for analgesia, iodine contrast agents. Gadolinium is contraindicated if the GFR is below 30. (2) Edema Plan: Patient is a edema may be related to cirrhosis and or venous insufficiency however will do 2-D echocardiogram to assess myocardial function. Furosemide as ordered. (3) Vitamin D deficiency Plan: Patient has apparently been on vitamin D 3 5000 units daily in the past but has been noncompliant with same. We'll resume. Patient advised. (4) HTN (hypertension) (5) DM type 2 (diabetes mellitus, type 2) (6) Wound cellulitis Plan: Management per surgical team and infectious disease. (7) Cirrhosis Plan: Unfortunately with a history of ongoing alcohol usage. Patient aware of potential adverse effects. Problem Qualifiers (1) DM type 2 (diabetes mellitus, type 2): Qualified Code: E11.8 - Type 2 diabetes mellitus with complication, without long-term current use of insulin (2) Cirrhosis: Qualified Code: K70.30 - Alcoholic cirrhosis of liver without ascites Ravi Lara MD Apr 02, 2016 19:24
[2016-04-02] MEDS ORDERED: FUROSEMIDE 20 MG/2 ML VIAL IV PUSH ONE (19:30)
[2016-04-02] MEDS ORDERED: POTASSIUM CHLORIDE 10 MEQ CONTROLLED RELEASE TAB PO ONE (19:30)
[2016-04-02 20:00] VITALS: BP 135/73; PULSE 79; RESP 20; TEMP 97.4; O2SAT 98
[2016-04-02] MEDS: DAPTOmycin INJ 900 MG in SODIUM CHLORIDE 0.9% INJ 100 ML IV SCH (21:00)
[2016-04-02] MEDS ORDERED: INSULIN DETEMIR 100 UNITS/ML VIAL SQ SCH (21:00)
[2016-04-03] VITALS: BP 156/84; PULSE 94; RESP 20; TEMP 96.8; O2SAT 94
[2016-04-03] MEDS: HEPARIN SODIUM - SQ 10,000 UNITS/ML VIAL SQ SCH ×3 (01:28→16:34)
[2016-04-03] MEDS: SODIUM CHLORIDE 0.9% FLUSH 5 ML FLUSH FLUSH PRN (01:38)
[2016-04-03] MEDS: ONDANSETRON HCL 4 MG/2 ML VIAL IVP PRN (01:38)
[2016-04-03 05:20] LABS: BICARBONATE 30.8 MEQ/L (21.0-32.0); POTASSIUM 3.5 MEQ/L (3.5-5.1)
[2016-04-03 08:00] VITALS: BP 140/71; PULSE 90; RESP 17; TEMP 98.3; O2SAT 92
[2016-04-03] MEDS ORDERED: NICOTINE 21 MG/24 HR PATCH TD ONE (08:30)
[2016-04-03] MEDS: SODIUM CHLORIDE 0.9% FLUSH 5 ML FLUSH FLUSH SCH ×2 (09:00→21:00)
[2016-04-03] MEDS: INSULIN ASPART SUPPLEMENTAL SCALE SQ SCH ×3 (11:42→22:30)
[2016-04-03 12:00] VITALS: BP 136/76; PULSE 90; RESP 18; TEMP 97.9; O2SAT 92
[2016-04-03 16:00] VITALS: BP 135/77; PULSE 77; RESP 19; TEMP 96.7; O2SAT 93
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
--- NOTE | 2016-04-03 17:29 | HHI.NPPN ---
Subjective History of Present Illness This patient is a 50-year-old male apparently with a history of cirrhosis related to EtOH use, diabetes mellitus who was admitted on March for what was described as a midline wound infection. His creatinine on presentation was 0.62. Patient was initially on Zosyn and vancomycin which was discontinued yesterday. Placed on daptomycin day prior to consultation. Creatinine level noted to have been 1.7 to yesterday and 1.91 today. Patient indicated that he has been trying to maintain an adequate fluid intake. No history of nausea, vomiting or diarrhea. No apparent NSAID usage. He is a history of chronic lower extremity edema. Interval History Pt sitting up in chair. Was wheezing yesterday, but improved today. No new issues. (Milvia Carrillo) Objective Data Data 04/02/16 04/03/16 19:00 07:00 Intake Total 1400 ml 1040 ml Output Total 1100 ml 3600 ml Balance 300 ml -2560 ml Intake Oral 1400 ml 840 ml Oral Supplement 200 ml IV Total 0 ml Output Urine Total 1100 ml 3600 ml # Bowel Movements 0 0 Vital Signs Date Time Temp Pulse Resp B/P Pulse Ox O2 Delivery O2 Flow Rate FiO2 04/03/16 16:00 96.7 77 19 135/77 93 04/03/16 15:15 17 04/03/16 12:00 97.9 90 18 136/76 92 04/03/16 08:00 98.3 90 17 140/71 92 04/03/16 00:00 96.8 94 20 156/84 94 04/02/16 20:00 97.4 79 20 135/73 98 (Milvia Carrillo) -: 04/01/16 0657 04/03/16 0444 Medication Review Current Medications Medications (Trade) Dose Ordered Sig/Paige Route Start Time Stop Time Status Last Admin (NS Flush) 2 ml UNSCH PRN FLUSH 03/28/16 09:30 04/03/16 01:38 (NS Flush) 2 ml BID FLUSH 03/28/16 21:00 04/03/16 09:00 (Tylenol) 650 mg Q4H PRN PO 03/28/16 09:30 (Zofran Inj) 4 mg Q6H PRN IVP 03/28/16 09:30 04/03/16 01:38 (Heparin Inj) 5,000 units Q8H SQ 03/28/16 10:00 04/03/16 16:34 (Roxicodone) 15 mg Q4H PRN PO 03/28/16 23:45 Oxycodone HCl 30 mg 30 mg Q4H PRN PO 03/28/16 23:45 04/03/16 14:33 (Cubicin Inj/NS Inj) 100 ml @ 200 mls/hr Q24H IV 03/31/16 21:00 04/01/16 22:09 (Dilaudid Pf Inj) 1 mg Q4H PRN IV PUSH 04/01/16 10:45 (Dilaudid Pf Inj) 2 mg Q6H PRN IV 04/01/16 12:30 04/01/16 12:24 (Catapres) 0.1 mg Q6H PRN PO 04/01/16 16:45 Miscellaneous Information 1 HS ONCE TD 04/03/16 21:00 04/03/16 21:01 (Levemir Inj) 20 units HS SQ 04/03/16 21:00 UNV (D50w (Vial) Inj) 25 ml UNSCH PRN IV PUSH 04/03/16 17:30 UNV (Glucagon Inj) 1 mg UNSCH PRN OTHER 04/03/16 17:30 UNV (Milvia Carrillo) Physical Exam General Appearance: No Acute Distress, Comfortable, Obese (Milvia Carrillo) Eyes Eye Exam: Sclera White (Milvia Carrillo) Throat Throat Exam: Oral Mucosa [place] & Moist (Milvia Carrillo) Neck Neck Exam: Trachea Midline (Milvia Carrillo) Pulmonary Resp Exam: Clear Bilaterally, Breath Sounds Equal (Milvia Carrillo) Cardiology CV Exam: Regular, Normal Sinus Rhythm (Milvia Carrillo) Gastrointestinal/Abdomen GI Exam: Soft, Non-Tender, Non-Distended (Milvia Carrillo) Extremeties Extremities Exam: Moderate Edema (1+ pitting edema LLE up to knee) (Milvia Carrillo) Neurologic Neuro Exam: Alert, Awake, Oriented (Milvia Carrillo) Psychiatric Psych Exam: Appropriate Responses (Milvia Carrillo) Assessment/Plan Discussed Condition With: Patient Problem List: (1) Acute kidney insufficiency Plan: Patient's creatinine level is slightly worse today, but likely related to Lasix given yesterday. Suspect that he may have had vancomycin nephrotoxicity. Repeat renal panel tomorrow. Pending HCV RNA PCR. Pt may be getting transferred to [facility] tomorrow. Medications should be adjusted for the patient's estimated GFR if clinically indicated. Avoid agents with significant potential for nephrotoxicity possible including NSAIDs for analgesia, iodine contrast agents. Gadolinium is contraindicated if the GFR is below 30. (2) Edema Plan: Pending results of 2D echo (3) Vitamin D deficiency Plan: Continue Vit D as ordered (4) HTN (hypertension) Plan: Stable. Continue on current regimen (5) DM type 2 (diabetes mellitus, type 2) Plan: Mgmt as per primary (6) Wound cellulitis Plan: Management per surgical team and infectious disease. (7) Cirrhosis Plan: Unfortunately with a history of ongoing alcohol usage. Patient aware of potential adverse effects. (Milvia Carrillo) Plan The exam, history, and the medical decision-making described in the above note were completed with the assistance of the LORRIE. I reviewed and agree with the findings presented. (Ravi Lara MD) Problem Qualifiers (1) HTN (hypertension): Qualified Code: I10 - Essential hypertension (2) DM type 2 (diabetes mellitus, type 2): Qualified Code: E11.8 - Type 2 diabetes mellitus with complication, without long-term current use of insulin (3) Cirrhosis: Qualified Code: K70.30 - Alcoholic cirrhosis of liver without ascites Milvia Carrillo Apr 03, 2016 17:29 Ravi Lara MD Apr 04, 2016 16:55
[2016-04-03] MEDS ORDERED: GLUCAGON 1 MG/ML VIAL OTHER PRN (17:30)
[2016-04-03] MEDS ORDERED: DEXTROSE 50% IN WATER 50 ML VIAL(D50) IV PUSH PRN (17:30)
[2016-04-03 18:46] VITALS: O2SAT 93
--- NOTE | 2016-04-03 19:01 | ECHLIM ---
Study Study Date:04/03/2016 STUDY CONCLUSIONS SUMMARY LEFT VENTRICLE: Limited echo done for evaluation of ejection fraction. Technically difficult study, but in limited views of the left ventricle, the overall ejection fraction appears to be probably normal, EF 55-60% If LV function is below 40, please consider prescribing an ACEI or ARB or document rationale for non-use. PROCEDURE DATA Procedure: Transthoracic echocardiography. Image quality was good. Scanning was performed from the parasternal, apical, and subcostal acoustic windows. Study completion: The patient tolerated the procedure well. Transthoracic echocardiography. M-mode, limited 2D, limited spectral Doppler, and color Doppler. Height: Height: 71in. Weight: Weight: 307.4lb. Body mass index: BMI: 43kg/m^2. Body surface area: BSA: 2.53m^2. CARDIAC ANATOMY LEFT VENTRICLE: The cavity size was normal. Systolic function was probably normal. The estimated ejection fraction was in the range of 55% to 60%. Images were inadequate for LV wall motion assessment. Patient weight: 307.4lb _Ejection fraction:_ 65-75% _Fractional shortening:_ 32% up to 5Kg 5-11.5Kg 11.6-22.9Kg 23-45Kg 45-57Kg Aortic Root 7-13 <17 13-22 17-27 17-27 LA diam 6-13 <23 24-38 33-47 37-40 RVID 10-17 7-15 7-15 7-18 8-17 LVIDd 12-22 <32 24-38 33-47 37-40 LVPW 2-4 3-6 5-7 6-8 7-8 IVS 2-4 3-6 5-7 6-8 7-8 BASIC MEASUREMENTS ADULT NORMAL Left ventricle LV internal dimension, ED, chordal level, *56 mm 43-52 PLAX LV internal dimension, ES, chordal level, *44.2 mm 23-38 PLAX Fractional shortening, chordal level, *21 % >29 PLAX LV posterior wall thickness, ED 8.85 mm IVS/LVPW ratio, ED 0.98 <1.3 Volume, ED, MOD, 1-plane 157 ml Volume, ES, MOD, 1-plane 76 ml Ejection fraction, MOD, 1-plane 52 % Stroke volume, MOD, 1-plane 81 ml Volume index, ED, MOD, 1-plane 62 ml/m^2 Volume index, ES, MOD, 1-plane 30 ml/m^2 Stroke index, MOD, 1-plane 32 ml/m^2 Ventricular septum Septal thickness, ED 8.69 mm LEGEND: Mean values are shown as u=mean value. Asterisk (*) reid values outside specified normal range. Prepared and signed by Fady Zavala [id number]
[2016-04-03 20:00] VITALS: BP 131/60; PULSE 71; RESP 20; TEMP 97.2; O2SAT 97
[2016-04-03] MEDS ORDERED: REMOVE OLD NICODERM (NICOTINE) PATCH TD ONE (21:00)
[2016-04-03] MEDS: DAPTOmycin INJ 900 MG in SODIUM CHLORIDE 0.9% INJ 100 ML IV SCH (21:00)
[2016-04-03] MEDS: INSULIN DETEMIR 100 UNITS/ML VIAL SQ SCH (22:29)
[2016-04-04] VITALS: BP 129/69; PULSE 85; RESP 21; TEMP 98.6; O2SAT 98
[2016-04-04] MEDS: HEPARIN SODIUM - SQ 10,000 UNITS/ML VIAL SQ SCH ×3 (02:35→16:44)
[2016-04-04] MEDS: SODIUM CHLORIDE 0.9% FLUSH 5 ML FLUSH FLUSH PRN (04:15)
[2016-04-04] MEDS: ONDANSETRON HCL 4 MG/2 ML VIAL IVP PRN ×2 (04:15→18:56)
[2016-04-04] MEDS: INSULIN ASPART SUPPLEMENTAL SCALE SQ SCH ×4 (04:31→21:00)
[2016-04-04 05:30] LABS: BICARBONATE 31.6 MEQ/L (21.0-32.0); POTASSIUM 3.6 MEQ/L (3.5-5.1)
[2016-04-04 08:00] VITALS: BP 127/58; PULSE 88; RESP 16; TEMP 98.8; O2SAT 94
[2016-04-04] MEDS: NICOTINE 21 MG/24 HR PATCH TD SCH (10:25)
[2016-04-04] MEDS: SODIUM CHLORIDE 0.9% FLUSH 5 ML FLUSH FLUSH SCH ×2 (10:28→21:00)
[2016-04-04 12:00] VITALS: BP 118/67; PULSE 82; RESP 17; TEMP 97.2; O2SAT 93
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
[2016-04-04 16:00] VITALS: BP 134/76; PULSE 84; RESP 16; TEMP 96.6; O2SAT 94
--- NOTE | 2016-04-04 16:53 | HHI.NPPN ---
Subjective History of Present Illness This patient is a 50-year-old male apparently with a history of cirrhosis related to EtOH use, diabetes mellitus who was admitted on March for what was described as a midline wound infection. His creatinine on presentation was 0.62. Patient was initially on Zosyn and vancomycin which was discontinued yesterday. Placed on daptomycin day prior to consultation. Creatinine level noted to have been 1.7 to yesterday and 1.91 today. Patient indicated that he has been trying to maintain an adequate fluid intake. No history of nausea, vomiting or diarrhea. No apparent NSAID usage. He is a history of chronic lower extremity edema. Interval History The patient had no verbal complaints. Objective Data Data 04/03/16 04/04/16 19:00 07:00 Intake Total 675 ml 720 ml Output Total 1650 ml 5000 ml Balance -975 ml -4280 ml Intake Oral 675 ml 720 ml IV Total 0 ml Output Urine Total 1650 ml 5000 ml # Bowel Movements 1 0 Vital Signs Date Time Temp Pulse Resp B/P Pulse Ox O2 Delivery O2 Flow Rate FiO2 04/04/16 12:00 97.2 82 17 118/67 93 04/04/16 08:00 98.8 88 16 127/58 94 04/04/16 00:00 98.6 85 21 129/69 98 04/04/16 00:00 98.6 85 21 129/69 98 04/03/16 20:00 97.2 71 20 131/60 97 04/03/16 18:46 93 21 -: 04/01/16 0657 04/04/16 0429 Physical Exam General Appearance: No Acute Distress, Comfortable, Obese Eyes Eye Exam: Sclera White Throat Throat Exam: Oral Mucosa [place] & Moist Neck Neck Exam: Trachea Midline Pulmonary Resp Exam: Clear Bilaterally, Breath Sounds Equal Resp Remarks Few expiratory wheezes bilaterally. Cardiology CV Exam: Regular, Normal Sinus Rhythm Gastrointestinal/Abdomen GI Exam: Soft, Non-Tender, Non-Distended Extremeties Extremities Exam: Moderate Edema (1+ pitting edema LLE up to knee) Neurologic Neuro Exam: Alert, Awake, Oriented Psychiatric Psych Exam: Appropriate Responses Assessment/Plan Discussed Condition With: Patient Problem List: (1) Acute kidney insufficiency Plan: The patient's creatinine level is remaining relatively stable albeit elevated. He may have sustained kidney injury related to vancomycin exposure and or ongoing infection. Pending HCV RNA PCR. Pt may be getting transferred to [facility]. The patient will be intermittently. Repeat renal indices tomorrow and Wednesday. Medications should be adjusted for the patient's estimated GFR if clinically indicated. Avoid agents with significant potential for nephrotoxicity possible including NSAIDs for analgesia, iodine contrast agents. Gadolinium is contraindicated if the GFR is below 30. (2) Edema Plan: Pending results of 2D echo (3) Vitamin D deficiency Plan: Continue Vit D as ordered (4) HTN (hypertension) Plan: Stable. Continue on current regimen (5) DM type 2 (diabetes mellitus, type 2) Plan: Mgmt as per primary (6) Wound cellulitis Plan: Management per surgical team and infectious disease. (7) Cirrhosis Plan: Unfortunately with a history of ongoing alcohol usage. Patient aware of potential adverse effects. Problem Qualifiers (1) HTN (hypertension): Qualified Code: I10 - Essential hypertension (2) DM type 2 (diabetes mellitus, type 2): Qualified Code: E11.8 - Type 2 diabetes mellitus with complication, without long-term current use of insulin (3) Cirrhosis: Qualified Code: K70.30 - Alcoholic cirrhosis of liver without ascites Ravi Lara MD Apr 04, 2016 16:53
[2016-04-04 20:00] VITALS: BP 139/73; PULSE 88; RESP 22; TEMP 96.9; O2SAT 94
[2016-04-04] MEDS: DAPTOmycin INJ 900 MG in SODIUM CHLORIDE 0.9% INJ 100 ML IV SCH (21:00)
[2016-04-04] MEDS: INSULIN DETEMIR 100 UNITS/ML VIAL SQ SCH (21:00)
[2016-04-04] MEDS: REMOVE OLD NICODERM (NICOTINE) PATCH TD SCH (21:00)
[2016-04-05] VITALS: BP 125/87; PULSE 88; RESP 22; TEMP 97.2; O2SAT 94
[2016-04-05] MEDS: HEPARIN SODIUM - SQ 10,000 UNITS/ML VIAL SQ SCH ×3 (03:37→16:40)
[2016-04-05] MEDS: INSULIN ASPART SUPPLEMENTAL SCALE SQ SCH ×4 (04:32→20:16)
[2016-04-05] MEDS: HYDROmorphone HCL PF 1 MG/ML VIAL IV PUSH PRN ×5 (05:34→21:54)
[2016-04-05] MEDS: ONDANSETRON HCL 4 MG/2 ML VIAL IVP PRN (05:34)
[2016-04-05 06:36] LABS: BICARBONATE 31.1 MEQ/L (21.0-32.0)
[2016-04-05 06:42] LABS: POTASSIUM 4.3 MEQ/L (3.5-5.1)
[2016-04-05] MEDS: NICOTINE 21 MG/24 HR PATCH TD SCH (07:56)
[2016-04-05] MEDS: SODIUM CHLORIDE 0.9% FLUSH 5 ML FLUSH FLUSH SCH ×2 (07:57→20:13)
[2016-04-05 08:00] VITALS: BP 107/51; PULSE 79; RESP 16; TEMP 97.2; O2SAT 92
[2016-04-05] MEDS ORDERED: OXYC15TA PO (11:30)
--- NOTE | 2016-04-05 11:31 | HHI.DCPOC ---
Discharge Care Plan Goals to Promote Your Health * To prevent worsening of your condition and complications * To maintain your health at the optimal level Directions to Meet Your Goals Take your medications as prescribed Follow your dietary instruction Follow activity as directed Keep your appointments as scheduled Take your immunizations and boosters as scheduled If your symptoms worsen call your PCP, if no PCP go to Urgent Care Center or Emergency Room Smoking is Dangerous to Your Health. Avoid second hand smoke Call the 24-hour hour crisis hotline for domestic abuse at Yesi Langston MD Apr 05, 2016 11:31
[2016-04-05 12:00] VITALS: BP 123/58; PULSE 82; RESP 17; TEMP 96.4; O2SAT 98
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
[2016-04-05 16:00] VITALS: BP 113/61; PULSE 84; RESP 17; TEMP 98.8; O2SAT 94
[2016-04-05 20:00] VITALS: BP 141/68; PULSE 87; RESP 22; TEMP 97.4; O2SAT 94
[2016-04-05] MEDS: DAPTOmycin INJ 900 MG in SODIUM CHLORIDE 0.9% INJ 100 ML IV SCH (20:14)
[2016-04-05] MEDS: REMOVE OLD NICODERM (NICOTINE) PATCH TD SCH (20:16)
[2016-04-05] MEDS: INSULIN DETEMIR 100 UNITS/ML VIAL SQ SCH (20:16)
[2016-04-06] VITALS: BP 124/56; PULSE 83; RESP 22; TEMP 97.6; O2SAT 94
[2016-04-06] MEDS: HEPARIN SODIUM - SQ 10,000 UNITS/ML VIAL SQ SCH ×3 (00:48→17:52)
[2016-04-06] MEDS: HYDROmorphone HCL PF 1 MG/ML VIAL IV PUSH PRN ×6 (02:05→23:14)
[2016-04-06] MEDS: INSULIN ASPART SUPPLEMENTAL SCALE SQ SCH ×4 (05:00→20:18)
[2016-04-06 06:37] LABS: BICARBONATE 32.4 MEQ/L (21.0-32.0); POTASSIUM 3.5 MEQ/L (3.5-5.1)
[2016-04-06 08:00] VITALS: BP 125/74; PULSE 90; RESP 18; TEMP 97.5; O2SAT 95
[2016-04-06] MEDS: NICOTINE 21 MG/24 HR PATCH TD SCH (09:43)
[2016-04-06] MEDS: SODIUM CHLORIDE 0.9% FLUSH 5 ML FLUSH FLUSH SCH ×2 (09:44→21:57)
[2016-04-06 12:00] VITALS: BP 115/80; PULSE 87; RESP 17; TEMP 97.6; O2SAT 95
--- NOTE | 2016-04-06 13:25 | HHI.IDPN ---
Subjective Subjective Remarks co intermittent drainage from his lumbar inciciosn no fever clx with skin edy pt was not cooperative during imaging studies 03/19 pain Antibiotics daptomycin Allergies: Coded Allergies: Morphine (Unverified Allergy, Severe, nausea and vomiting, 03/23/16) Nonsteroidal Anti-Inflammatory Agts (Verified Adverse Reaction, Severe, INCONTINENCE, 03/23/16) Objective . Vital Signs Date Time Temp Pulse Resp B/P Pulse Ox O2 Delivery O2 Flow Rate FiO2 04/06/16 12:00 97.6 87 17 115/80 95 04/06/16 11:29 20 04/06/16 10:43 20 04/06/16 08:00 97.5 90 18 125/74 95 04/06/16 00:00 97.6 83 22 124/56 94 04/05/16 20:00 97.4 87 22 141/68 94 04/05/16 16:00 98.8 84 17 113/61 94 04/05/16 04/05/16 04/06/16 15:00 23:00 07:00 Intake Total 3600 ml 340 ml 480 ml Output Total 1200 ml 500 ml 1250 ml Balance 2400 ml -160 ml -770 ml Intake Oral 3600 ml 240 ml 480 ml IV Total 100 ml 0 ml Output Urine Total 1200 ml 500 ml 1250 ml # Bowel Movements 0 1 0 . Laboratory Tests Test 04/05/16 04/06/16 05:20 05:31 Sodium Level 136 MEQ/L 138 MEQ/L Potassium Level 4.3 MEQ/L 3.5 MEQ/L Chloride Level 98 MEQ/L 97 MEQ/L Carbon Dioxide Level 31.1 MEQ/L 32.4 MEQ/L Anion Gap 7 MEQ/L 9 MEQ/L Blood Urea Nitrogen 15 MG/DL 16 MG/DL Creatinine 1.93 MG/DL 1.92 MG/DL Estimat Glomerular Filtration 37 ML/MIN 38 ML/MIN Rate Random Glucose 131 MG/DL 141 MG/DL Calcium Level 8.5 MG/DL 8.2 MG/DL Imaging Last Impressions Lumbar Spine MRI 04/02/16 0000 Signed Impressions: Service Date/Time: March 14:40 - CONCLUSION: 1. Orthopedic hardware totally obscures L4-S1. 2. No abscess observed on these limited images. Christoph Deng Jr., MD Renal Ultrasound 04/01/16 0000 Signed Impressions: Service Date/Time: Friday, April 01, 2016 22:13 - CONCLUSION: 1. Enlargement of the kidneys bilaterally. 2. Splenic enlargement. Miguel Skelton MD Lumbar Spine CT 04/01/16 0000 Signed Impressions: Service Date/Time: Friday, April 01, 2016 14:23 - CONCLUSION: 1. The patient is status post fusion at the L4-S1 level with pedicle screws and posterior fixation rods. The hardware remains intact in appearance. 2. The L4- 5 and L5-S1 levels are not well delineated due to streak artifact. The thecal sac and foramina could not be evaluated. 3. Moderate central canal stenosis L3-4 secondary to disc bulge and degenerative change involving the facets. Todd Rothman MD ADDENDUM: There are multiple small gas collections in the posterior soft tissues. The largest is located posterior to the L3-4 interspace along the right paraspinous musculature and measures approximately 5 x 1 cm. This is best seen on axial image #72. There are multiple smaller rounded gas collections located more inferiorly in the posterior soft tissues measuring approximately 0.5-2 cm in diameter. The adjacent bony structures are intact in appearance with no definite destructive change. There is no large drainable fluid collection. Visualization is suboptimal due to the streak artifact. There is inflammatory change in these regions. Todd Rothman MD Bone Scan Nuclear Medicine 04/01/16 0000 Signed Impressions: Service Date/Time: Friday, April 01, 2016 09:36 - CONCLUSION: 1. Suboptimal incomplete study with no delayed imaging. 2. Focal area of hyperemia on the right on the flow and blood pool images. This is nonspecific and could represent cellulitis. Osteomyelitis cannot be excluded without delayed images. Todd Rothman MD Chest X-Ray 03/30/16 0000 Signed Impressions: Service Date/Time: Wednesday, March 30, 2016 16:50 - CONCLUSION: Mild cardiomegaly with no evidence of pneumonia or pulmonary edema. Todd Rothman MD Physical Exam CONSTITUTIONAL/GENERAL: This is am morbidly obese patient, in no apparent distress. SKIN: No jaundice, rashes, or lesions. CARDIOVASCULAR: Regular rate and rhythm without murmurs, gallops, or rubs. No JVD. Peripheral pulses symmetric. RESPIRATORY/CHEST: Symmetric, unlabored respirations. GASTROINTESTINAL: Abdomen benign MUSCULOSKELETAL: Extremities without clubbing, cyanosis, worsening LE edema.. No mottling or clubbing. sp R BKA BACK: well healed scar lower back no active drainage noted bu the re is dry serous d/c on the clothes and beddings Non erythemaout but persistentkly indurated BOTH buttocks, today more prominemt L small amount of odorless serosan dc pain pump i place no erytjea on UOQ of R buttock w/o any skin changes around it NEUROLOGICAL: Awake and alert. Motor and sensory grossly within normal limits. Follows commands. Normal speech. Moves all extremities. Assessment & Plan Remarks R buttock cellulitis - resolved ? infected seroma - growing nl skin edy so far - suspected underlying hardware infx - clx with nl skin edy, doubt clin sign Indwleing hardware - suspected infx ARF : stable creatinine urine eos negative Rec's: dc vanco, zosyn -cont daptomycin - monitor CKs while on dapto - monitor renal fnx and UOP -awaiting transfer to [facility] for hardware removal jeanine solorzano case mngr Kim Mckenzie MD Apr 06, 2016 13:25
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
[2016-04-06 16:00] VITALS: BP 121/64; PULSE 80; RESP 20; TEMP 97.9; O2SAT 97
[2016-04-06 20:00] VITALS: BP 161/80; PULSE 90; RESP 18; TEMP 96.1; O2SAT 93
[2016-04-06] MEDS: LACTULOSE SYRUP 20 GM/30 ML CUP PO PRN (20:07)
[2016-04-06] MEDS: INSULIN DETEMIR 100 UNITS/ML VIAL SQ SCH (20:11)
[2016-04-06] MEDS: DAPTOmycin INJ 900 MG in SODIUM CHLORIDE 0.9% INJ 100 ML IV SCH (21:58)
[2016-04-06] MEDS: REMOVE OLD NICODERM (NICOTINE) PATCH TD SCH (21:59)
[2016-04-06] MEDS: SODIUM CHLORIDE 0.9% FLUSH 5 ML FLUSH FLUSH PRN (23:14)
[2016-04-07] VITALS: BP 142/84; PULSE 82; RESP 20; TEMP 97.2; O2SAT 96
[2016-04-07] MEDS: HEPARIN SODIUM - SQ 10,000 UNITS/ML VIAL SQ SCH ×3 (01:40→17:36)
[2016-04-07] MEDS: SODIUM CHLORIDE 0.9% FLUSH 5 ML FLUSH FLUSH PRN (03:42)
[2016-04-07] MEDS: HYDROmorphone HCL PF 1 MG/ML VIAL IV PUSH PRN ×5 (03:43→21:36)
[2016-04-07 05:25] LABS: BICARBONATE 28.5 MEQ/L (21.0-32.0); POTASSIUM 4.5 MEQ/L (3.5-5.1)
[2016-04-07] MEDS: INSULIN ASPART SUPPLEMENTAL SCALE SQ SCH ×4 (05:36→20:11)
[2016-04-07] MEDS: NICOTINE 21 MG/24 HR PATCH TD SCH (07:56)
[2016-04-07] MEDS: SODIUM CHLORIDE 0.9% FLUSH 5 ML FLUSH FLUSH SCH ×2 (07:57→21:35)
[2016-04-07 08:00] VITALS: BP 122/81; PULSE 76; RESP 19; TEMP 97.7; O2SAT 92
[2016-04-07 12:00] VITALS: BP 124/79; PULSE 78; RESP 18; TEMP 97.3; O2SAT 94
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
[2016-04-07 20:00] VITALS: BP 129/77; PULSE 73; RESP 18; TEMP 97.1; O2SAT 93
[2016-04-07] MEDS: INSULIN DETEMIR 100 UNITS/ML VIAL SQ SCH (20:10)
[2016-04-07] MEDS: REMOVE OLD NICODERM (NICOTINE) PATCH TD SCH (21:00)
[2016-04-07] MEDS: DAPTOmycin INJ 900 MG in SODIUM CHLORIDE 0.9% INJ 100 ML IV SCH (21:36)
[2016-04-07 23:58] VITALS: BP 114/74; PULSE 76; RESP 18; TEMP 96.8; O2SAT 94
[2016-04-08] MEDS: HEPARIN SODIUM - SQ 10,000 UNITS/ML VIAL SQ SCH ×3 (00:48→17:59)
[2016-04-08] MEDS: HYDROmorphone HCL PF 1 MG/ML VIAL IV PUSH PRN ×5 (02:06→20:10)
[2016-04-08 03:56] LABS: HCV RNA PCR IU/ML LESS THAN 15 IU/mL (()); HCV RNA PCR LOGIU/ML LESS THAN 1.18 (())
[2016-04-08] MEDS: INSULIN ASPART SUPPLEMENTAL SCALE SQ SCH ×4 (05:30→20:15)
[2016-04-08 06:09] LABS: AUTOMATED NEUTROPHIL # 3.9 TH/MM3 (1.8-7.7); BASOPHIL % 0.7 % (0.0-2.0); EOSINOPHIL # 0.1 TH/MM3 (0-0.4); EOSINOPHIL % 1.9 % (0.0-4.0); HEMATOCRIT 35.9 % (39.0-51.0); HEMO FLAGS DIFF FINAL; LYMPH % 21.7 % (9.0-44.0); LYMPHOCYTE # 1.3 TH/MM3 (1.0-4.8); MEAN CELL VOLUME 95.6 FL (80.0-100.0); MEAN CORPUSCULAR HEMOGLOBIN 31.7 PG (27.0-34.0); MEAN CORPUSCULAR HGB CONC 33.2 % (32.0-36.0); MONO % 12.8 % (0.0-8.0); NEUT % 62.9 % (16.0-70.0); PLATELET COUNT 164 TH/MM3 (150-450); RED BLOOD COUNT 3.76 MIL/MM3 (4.50-5.90); RED CELL DISTRIBUTION WIDTH 16.3 % (11.6-17.2); WHITE BLOOD COUNT 6.2 TH/MM3 (4.0-11.0)
[2016-04-08 06:46] LABS: BICARBONATE 32.2 MEQ/L (21.0-32.0); POTASSIUM 3.9 MEQ/L (3.5-5.1)
[2016-04-08 08:00] VITALS: BP 120/56; PULSE 83; RESP 20; TEMP 96.7; O2SAT 92
[2016-04-08] MEDS: NICOTINE 21 MG/24 HR PATCH TD SCH (09:00)
[2016-04-08] MEDS: SODIUM CHLORIDE 0.9% FLUSH 5 ML FLUSH FLUSH SCH ×2 (09:33→20:11)
[2016-04-08 10:18] VITALS: O2SAT 94
[2016-04-08 12:00] VITALS: BP 136/71; PULSE 82; RESP 18; TEMP 97.3; O2SAT 92
[2016-04-08 16:00] VITALS: BP 135/64; PULSE 79; RESP 17; TEMP 96; O2SAT 92
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
[2016-04-08 20:00] VITALS: BP 138/72; PULSE 75; RESP 18; TEMP 96.7; O2SAT 93
[2016-04-08] MEDS: DAPTOmycin INJ 900 MG in SODIUM CHLORIDE 0.9% INJ 100 ML IV SCH (20:11)
[2016-04-08] MEDS: INSULIN DETEMIR 100 UNITS/ML VIAL SQ SCH (20:12)
[2016-04-08] MEDS: REMOVE OLD NICODERM (NICOTINE) PATCH TD SCH (20:15)
[2016-04-09] VITALS: BP_SYST 143; BP_SYST 176; BP_DIAS 69; BP_DIAS 80; PULSE 113; PULSE 77; RESP 20; RESP 22; TEMP 100.2; TEMP 97; O2SAT 94; O2SAT 95
[2016-04-09] MEDS: HEPARIN SODIUM - SQ 10,000 UNITS/ML VIAL SQ SCH ×3 (02:26→17:45)
[2016-04-09] MEDS: HYDROmorphone HCL PF 1 MG/ML VIAL IV PUSH PRN ×4 (04:10→21:41)
[2016-04-09] MEDS: INSULIN ASPART SUPPLEMENTAL SCALE SQ SCH ×4 (04:21→20:22)
[2016-04-09 08:00] VITALS: BP 144/68; PULSE 75; RESP 20; TEMP 97.4; O2SAT 94
[2016-04-09] MEDS: NICOTINE 21 MG/24 HR PATCH TD SCH (08:41)
[2016-04-09] MEDS: SODIUM CHLORIDE 0.9% FLUSH 5 ML FLUSH FLUSH SCH ×2 (08:41→20:14)
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
[2016-04-09 12:00] VITALS: BP 146/90; PULSE 88; RESP 19; TEMP 95.9; O2SAT 92
[2016-04-09 16:00] VITALS: BP 153/72; PULSE 85; RESP 19; TEMP 95.9; O2SAT 96
[2016-04-09 20:00] VITALS: BP 151/79; PULSE 75; RESP 20; TEMP 96.1; O2SAT 97
[2016-04-09] MEDS: DAPTOmycin INJ 900 MG in SODIUM CHLORIDE 0.9% INJ 100 ML IV SCH (20:13)
[2016-04-09] MEDS: INSULIN DETEMIR 100 UNITS/ML VIAL SQ SCH (20:14)
[2016-04-09] MEDS: REMOVE OLD NICODERM (NICOTINE) PATCH TD SCH (20:22)
[2016-04-09] MEDS: ZOLPIDEM TARTRATE 5 MG TAB PO PRN (21:45)
--- NOTE | 2016-04-09 22:18 | HHI.IDPN ---
Subjective Subjective Remarks delayedentry pt was seen around 1700 today Pt co persistent intermittent drainage Large sraining (around up to full cup ) noticed on the bed and chair He also co persistent pain in buttocks requiring narcotics He has no fever He tolerates abx OK Creatinine slowly going down Antibiotics daptomycin Allergies: Coded Allergies: Morphine (Unverified Allergy, Severe, nausea and vomiting, 03/23/16) Nonsteroidal Anti-Inflammatory Agts (Verified Adverse Reaction, Severe, INCONTINENCE, 03/23/16) Objective . Vital Signs Date Time Temp Pulse Resp B/P Pulse Ox O2 Delivery O2 Flow Rate FiO2 04/09/16 20:00 96.1 75 20 151/79 97 04/09/16 16:00 95.9 85 19 153/72 96 04/09/16 12:00 95.9 88 19 146/90 92 04/09/16 08:00 97.4 75 20 144/68 94 04/09/16 04:40 16 04/09/16 03:26 16 04/09/16 00:00 97.0 77 20 176/80 94 04/08/16 04/08/16 04/09/16 15:00 23:00 07:00 Intake Total 1020 ml 580 ml 480 ml Output Total 925 ml 1100 ml Balance 95 ml -520 ml 480 ml Intake Oral 1020 ml 480 ml 480 ml IV Total 100 ml Output Urine Total 925 ml 1100 ml # Voids 1 3 # Bowel Movements 0 0 0 . Laboratory Tests Test 04/08/16 05:48 White Blood Count 6.2 TH/MM3 Red Blood Count 3.76 MIL/MM3 Hemoglobin 11.9 GM/DL Hematocrit 35.9 % Mean Corpuscular Volume 95.6 FL Mean Corpuscular Hemoglobin 31.7 PG Mean Corpuscular Hemoglobin 33.2 % Concent Red Cell Distribution Width 16.3 % Platelet Count 164 TH/MM3 Mean Platelet Volume 8.5 FL Neutrophils (%) (Auto) 62.9 % Lymphocytes (%) (Auto) 21.7 % Monocytes (%) (Auto) 12.8 % Eosinophils (%) (Auto) 1.9 % Basophils (%) (Auto) 0.7 % Neutrophils # (Auto) 3.9 TH/MM3 Lymphocytes # (Auto) 1.3 TH/MM3 Monocytes # (Auto) 0.8 TH/MM3 Eosinophils # (Auto) 0.1 TH/MM3 Basophils # (Auto) 0.0 TH/MM3 CBC Comment DIFF FINAL Differential Comment Laboratory Tests Test 04/08/16 05:48 Sodium Level 141 MEQ/L Potassium Level 3.9 MEQ/L Chloride Level 101 MEQ/L Carbon Dioxide Level 32.2 MEQ/L Anion Gap 8 MEQ/L Blood Urea Nitrogen 13 MG/DL Creatinine 1.67 MG/DL Estimat Glomerular Filtration 44 ML/MIN Rate Random Glucose 133 MG/DL Calcium Level 8.5 MG/DL Imaging Last Impressions Lumbar Spine MRI 04/02/16 0000 Signed Impressions: Service Date/Time: March 14:40 - CONCLUSION: 1. Orthopedic hardware totally obscures L4-S1. 2. No abscess observed on these limited images. Christoph Deng Jr., MD Renal Ultrasound 04/01/16 0000 Signed Impressions: Service Date/Time: Friday, April 01, 2016 22:13 - CONCLUSION: 1. Enlargement of the kidneys bilaterally. 2. Splenic enlargement. Miguel Skelton MD Lumbar Spine CT 04/01/16 0000 Signed Impressions: Service Date/Time: Friday, April 01, 2016 14:23 - CONCLUSION: 1. The patient is status post fusion at the L4-S1 level with pedicle screws and posterior fixation rods. The hardware remains intact in appearance. 2. The L4- 5 and L5-S1 levels are not well delineated due to streak artifact. The thecal sac and foramina could not be evaluated. 3. Moderate central canal stenosis L3-4 secondary to disc bulge and degenerative change involving the facets. Todd Rothman MD ADDENDUM: There are multiple small gas collections in the posterior soft tissues. The largest is located posterior to the L3-4 interspace along the right paraspinous musculature and measures approximately 5 x 1 cm. This is best seen on axial image #72. There are multiple smaller rounded gas collections located more inferiorly in the posterior soft tissues measuring approximately 0.5-2 cm in diameter. The adjacent bony structures are intact in appearance with no definite destructive change. There is no large drainable fluid collection. Visualization is suboptimal due to the streak artifact. There is inflammatory change in these regions. Todd Rothman MD Bone Scan Nuclear Medicine 04/01/16 0000 Signed Impressions: Service Date/Time: Friday, April 01, 2016 09:36 - CONCLUSION: 1. Suboptimal incomplete study with no delayed imaging. 2. Focal area of hyperemia on the right on the flow and blood pool images. This is nonspecific and could represent cellulitis. Osteomyelitis cannot be excluded without delayed images. Todd Rothamn MD Chest X-Ray 03/30/16 0000 Signed Impressions: Service Date/Time: Wednesday, March 30, 2016 16:50 - CONCLUSION: Mild cardiomegaly with no evidence of pneumonia or pulmonary edema. Todd Rothman MD Physical Exam CONSTITUTIONAL/GENERAL: This is am morbidly obese patient, in no apparent distress. SKIN: No jaundice, rashes, or lesions. CARDIOVASCULAR: Regular rate and rhythm without murmurs, gallops, or rubs. No JVD. Peripheral pulses symmetric. RESPIRATORY/CHEST: Symmetric, unlabored respirations. GASTROINTESTINAL: Abdomen benign MUSCULOSKELETAL: Extremities without clubbing, cyanosis, worsening LE edema.. No mottling or clubbing. sp R BKA BACK: well healed scar lower back Drainage noted Non erythemaout but persistentkly indurated BOTH buttocks, tender to palpation Induration is prediminantly in upper medial quadrants small amount of odorless serosan dc pain pump i place no erytjea on UOQ of R buttock w/o any skin changes around it NEUROLOGICAL: Awake and alert. Motor and sensory grossly within normal limits. Follows commands. Normal speech. Moves all extremities. Assessment & Plan Remarks R buttock cellulitis - resolved ? infected seroma: pt with persistent pain, induration - growing nl skin edy so far - suspected underlying hardware infx - clx with nl skin edy, doubt clin sign Indwleing hardware - suspected infx ARF : slowly improving creatinine urine eos negative Cancelled transfer to [facility] ; Dr Gambino is not recommending hardware removal at this point Rec's: -cont daptomycin for total of 2 weeks unless infected hardware proven - when ready to dc OK to switch to po abx ( Keflex + doxy ) - monitor CKs while on dapto - monitor renal fnx and UOP - Pt needs imaging studies and he is willing to try labelled WBC scan; however due to ongoing abx use negative study have less predictive value - consider reconsult Dr Martinez for exision of seroma - D/w Dr Corona Shannon: he recommended against other types of procedures (i.e percutaneous dainage, I+D) except of exsiing seroma because of high risk of recurrence dw Corona Aguilar, Kim Diaz MD Apr 09, 2016 22:18
[2016-04-10] VITALS (7 sets, daily range): BP systolic 115–150; BP diastolic 60–85; PULSE 75–84; RESP 18–20; TEMP 96–98.2; O2SAT 95–99
[2016-04-10] MEDS: HEPARIN SODIUM - SQ 10,000 UNITS/ML VIAL SQ SCH ×3 (00:27→17:28)
[2016-04-10] MEDS: HYDROmorphone HCL PF 1 MG/ML VIAL IV PUSH PRN ×5 (01:33→23:30)
[2016-04-10] MEDS: INSULIN ASPART SUPPLEMENTAL SCALE SQ SCH ×4 (04:29→23:30)
[2016-04-10 05:43] LABS: AUTOMATED NEUTROPHIL # 3.7 TH/MM3 (1.8-7.7); BASOPHIL % 0.6 % (0.0-2.0); EOSINOPHIL # 0.2 TH/MM3 (0-0.4); EOSINOPHIL % 3.7 % (0.0-4.0); HEMATOCRIT 32.7 % (39.0-51.0); HEMO FLAGS DIFF FINAL; LYMPH % 22.8 % (9.0-44.0); LYMPHOCYTE # 1.4 TH/MM3 (1.0-4.8); MEAN CELL VOLUME 94.5 FL (80.0-100.0); MEAN CORPUSCULAR HEMOGLOBIN 32.6 PG (27.0-34.0); MEAN CORPUSCULAR HGB CONC 34.5 % (32.0-36.0); MONO % 10.8 % (0.0-8.0); NEUT % 62.1 % (16.0-70.0); PLATELET COUNT 166 TH/MM3 (150-450); RED BLOOD COUNT 3.46 MIL/MM3 (4.50-5.90); RED CELL DISTRIBUTION WIDTH 16.3 % (11.6-17.2)
[2016-04-10 05:58] LABS: BICARBONATE 28.3 MEQ/L (21.0-32.0); POTASSIUM 3.5 MEQ/L (3.5-5.1)
[2016-04-10] MEDS: NICOTINE 21 MG/24 HR PATCH TD SCH (08:39)
[2016-04-10] MEDS: SODIUM CHLORIDE 0.9% FLUSH 5 ML FLUSH FLUSH SCH ×2 (08:40→21:55)
--- NOTE | 2016-04-10 15:23 | PD.PLAS.PN ---
Subjective Remarks Chart reviewed. Vital Signs Date Time Temp Pulse Resp B/P Pulse Ox O2 Delivery O2 Flow Rate FiO2 04/10/16 14:30 95 04/10/16 13:04 98.2 84 18 115/63 95 04/10/16 08:41 97.5 79 18 133/60 96 04/10/16 05:29 16 04/10/16 01:51 96 21 04/10/16 00:00 96.9 78 20 150/70 99 04/09/16 22:11 16 04/09/16 20:00 96.1 75 20 151/79 97 04/09/16 16:00 95.9 85 19 153/72 96 I/O 04/09/16 04/09/16 04/09/16 04/10/16 04/10/16 04/10/16 07:00 15:00 23:00 07:00 15:00 23:00 Intake Total 480 ml 1075 ml 580 ml 480 ml Output Total 850 ml 400 ml 1300 ml Balance 480 ml 225 ml 180 ml -820 ml Intake Oral 480 ml 975 ml 480 ml 480 ml IV Total 100 ml 100 ml Output Urine Total 850 ml 400 ml 1300 ml # Voids 3 # Bowel Movements 0 1 0 0 Laboratory Tests Test 04/10/16 05:05 White Blood Count 6.0 Red Blood Count 3.46 Hemoglobin 11.3 Hematocrit 32.7 Mean Corpuscular Volume 94.5 Mean Corpuscular Hemoglobin 32.6 Mean Corpuscular Hemoglobin 34.5 Concent Red Cell Distribution Width 16.3 Platelet Count 166 Mean Platelet Volume 8.7 Neutrophils (%) (Auto) 62.1 Lymphocytes (%) (Auto) 22.8 Monocytes (%) (Auto) 10.8 Eosinophils (%) (Auto) 3.7 Basophils (%) (Auto) 0.6 Neutrophils # (Auto) 3.7 Lymphocytes # (Auto) 1.4 Monocytes # (Auto) 0.6 Eosinophils # (Auto) 0.2 Basophils # (Auto) 0.0 CBC Comment DIFF FINAL Differential Comment Sodium Level 139 Potassium Level 3.5 Chloride Level 103 Carbon Dioxide Level 28.3 Anion Gap 8 Blood Urea Nitrogen 10 Creatinine 1.38 Estimat Glomerular Filtration 55 Rate Random Glucose 185 Calcium Level 8.6 Result Diagram: 04/10/16 0505 04/10/16 0505 Exam Findings I have reviewed the results of the CT scan. There is connection between the hardware and the draining tissues. In addition, the patient continues to drain. Impression: (1) Retained orthopedic hardware Comment: Impression: The patient has hardware which has been communicating with a large sinus. In addition he has significant medical issues. Plan: In order to treat this, the patient would likely need removal of the hardware and possible flap reconstruction. In light of the complexity of the hardware removal, according to the neurosurgeon, and the complexity of the reconstruction, as well as his medical condition, this patient should be transferred to a tertiary facility for evaluation and treatment. The treatment for this patient will require coordination of several surgical and medical services, and is beyond the scope of practice at this institution. My recommendation is to transfer to a medical service at a tertiary care facility where he would receive appropriate evaluation and treatment as able. Lastly, this patient may not be a surgical candidate in his present condition, and is beyond my scope of practice. Judy Lynne MD Apr 10, 2016 15:23
[2016-04-10] MEDS ORDERED: DOCUSATE SODIUM 50 MG/SENNA 8.6 MG TAB PO ONE (19:00)
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
[2016-04-10] MEDS ORDERED: MAGNESIUM HYDROXIDE SUSP 30 ML CUP PO ONE (20:00)
[2016-04-10] MEDS: REMOVE OLD NICODERM (NICOTINE) PATCH TD SCH (21:00)
[2016-04-10] MEDS: DAPTOmycin INJ 900 MG in SODIUM CHLORIDE 0.9% INJ 100 ML IV SCH (21:55)
[2016-04-10] MEDS: INSULIN DETEMIR 100 UNITS/ML VIAL SQ SCH (21:56)
[2016-04-11] VITALS: BP 144/70; PULSE 77; RESP 20; TEMP 97; O2SAT 95
[2016-04-11] MEDS: HEPARIN SODIUM - SQ 10,000 UNITS/ML VIAL SQ SCH ×3 (02:02→15:34)
[2016-04-11] MEDS: HYDROmorphone HCL PF 1 MG/ML VIAL IV PUSH PRN ×5 (03:26→22:03)
[2016-04-11] MEDS: INSULIN ASPART SUPPLEMENTAL SCALE SQ SCH ×4 (07:00→22:01)
[2016-04-11 08:00] VITALS: BP 107/74; PULSE 80; RESP 16; TEMP 98; O2SAT 94
[2016-04-11] MEDS: NICOTINE 21 MG/24 HR PATCH TD SCH (08:02)
[2016-04-11] MEDS: SODIUM CHLORIDE 0.9% FLUSH 5 ML FLUSH FLUSH SCH ×2 (08:02→21:19)
[2016-04-11] MEDS: LACTULOSE SYRUP 20 GM/30 ML CUP PO PRN (09:35)
[2016-04-11 12:00] VITALS: BP 138/67; PULSE 83; RESP 16; TEMP 99; O2SAT 95
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
[2016-04-11] MEDS ORDERED: LACTULOSE SYRUP 20 GM/30 ML CUP PO ONE (15:15)
[2016-04-11 16:00] VITALS: BP 138/79; PULSE 77; RESP 15; TEMP 97.6; O2SAT 98
[2016-04-11] MEDS: REMOVE OLD NICODERM (NICOTINE) PATCH TD SCH (21:00)
[2016-04-11] MEDS: INSULIN DETEMIR 100 UNITS/ML VIAL SQ SCH (21:19)
[2016-04-11] MEDS: SODIUM CHLORIDE 0.9% FLUSH 5 ML FLUSH FLUSH PRN (22:02)
[2016-04-11 22:34] VITALS: BP 135/73; PULSE 76; RESP 22; TEMP 97.4; O2SAT 96
[2016-04-12 00:28] VITALS: BP 140/72; PULSE 79; RESP 22; TEMP 98.4; O2SAT 98
[2016-04-12] MEDS: HEPARIN SODIUM - SQ 10,000 UNITS/ML VIAL SQ SCH ×3 (01:38→16:36)
[2016-04-12] MEDS: SODIUM CHLORIDE 0.9% FLUSH 5 ML FLUSH FLUSH PRN (02:41)
[2016-04-12] MEDS: HYDROmorphone HCL PF 1 MG/ML VIAL IV PUSH PRN ×4 (02:41→22:08)
[2016-04-12] MEDS: INSULIN ASPART SUPPLEMENTAL SCALE SQ SCH ×4 (06:18→21:30)
[2016-04-12 07:04] LABS: AUTOMATED NEUTROPHIL # 3.7 TH/MM3 (1.8-7.7); BASOPHIL % 0.5 % (0.0-2.0); BICARBONATE 30.3 MEQ/L (21.0-32.0); EOSINOPHIL # 0.2 TH/MM3 (0-0.4); EOSINOPHIL % 3.6 % (0.0-4.0); HEMATOCRIT 35.3 % (39.0-51.0); HEMO FLAGS DIFF FINAL; LYMPH % 22.7 % (9.0-44.0); LYMPHOCYTE # 1.4 TH/MM3 (1.0-4.8); MEAN CELL VOLUME 95.1 FL (80.0-100.0); MEAN CORPUSCULAR HEMOGLOBIN 31.9 PG (27.0-34.0); MEAN CORPUSCULAR HGB CONC 33.5 % (32.0-36.0); MONO % 11.3 % (0.0-8.0); NEUT % 61.9 % (16.0-70.0); PLATELET COUNT 168 TH/MM3 (150-450); POTASSIUM 3.9 MEQ/L (3.5-5.1); RED BLOOD COUNT 3.72 MIL/MM3 (4.50-5.90); RED CELL DISTRIBUTION WIDTH 16.2 % (11.6-17.2)
[2016-04-12 08:00] VITALS: BP 130/67; PULSE 78; RESP 16; TEMP 97.3; O2SAT 94
[2016-04-12] MEDS: SODIUM CHLORIDE 0.9% FLUSH 5 ML FLUSH FLUSH SCH ×2 (08:03→20:51)
[2016-04-12] MEDS: NICOTINE 21 MG/24 HR PATCH TD SCH (08:03)
[2016-04-12 12:00] VITALS: BP 141/76; PULSE 77; RESP 20; TEMP 96.9; O2SAT 95
[2016-04-12 14:00] VITALS: BP 141/86; PULSE 82; RESP 14; TEMP 96.7; O2SAT 96
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
[2016-04-12 20:00] VITALS: BP 159/72; PULSE 81; RESP 17; TEMP 97.8; O2SAT 97
[2016-04-12] MEDS: REMOVE OLD NICODERM (NICOTINE) PATCH TD SCH (21:00)
[2016-04-12] MEDS: INSULIN DETEMIR 100 UNITS/ML VIAL SQ SCH (21:30)
[2016-04-13] VITALS: BP 139/72; PULSE 76; RESP 17; TEMP 97.4; O2SAT 98
[2016-04-13] MEDS: HEPARIN SODIUM - SQ 10,000 UNITS/ML VIAL SQ SCH ×3 (01:05→16:40)
[2016-04-13] MEDS: HYDROmorphone HCL PF 1 MG/ML VIAL IV PUSH PRN ×3 (02:28→20:50)
[2016-04-13] MEDS: INSULIN ASPART SUPPLEMENTAL SCALE SQ SCH ×4 (06:15→20:56)
[2016-04-13 08:00] VITALS: BP 129/73; PULSE 79; RESP 16; TEMP 98; O2SAT 96
[2016-04-13] MEDS: NICOTINE 21 MG/24 HR PATCH TD SCH (09:00)
[2016-04-13] MEDS: SODIUM CHLORIDE 0.9% FLUSH 5 ML FLUSH FLUSH SCH ×2 (09:00→20:56)
[2016-04-13] MEDS: INSULIN DETEMIR 100 UNITS/ML VIAL SQ SCH ×2 (09:13→20:56)
[2016-04-13 12:00] VITALS: BP 131/71; PULSE 75; RESP 16; TEMP 98.1; O2SAT 96
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
[2016-04-13 16:00] VITALS: BP 132/57; PULSE 16; RESP 16; TEMP 98; O2SAT 96
[2016-04-13 20:00] VITALS: BP 181/83; PULSE 83; RESP 18; TEMP 97.8; O2SAT 97
[2016-04-13] MEDS: REMOVE OLD NICODERM (NICOTINE) PATCH TD SCH (20:56)
[2016-04-14] VITALS: BP 146/76; PULSE 77; RESP 20; TEMP 96.5; O2SAT 97
[2016-04-14] MEDS: HEPARIN SODIUM - SQ 10,000 UNITS/ML VIAL SQ SCH ×3 (03:07→16:48)
[2016-04-14] MEDS: HYDROmorphone HCL PF 1 MG/ML VIAL IV PUSH PRN ×4 (04:41→22:00)
[2016-04-14] MEDS: INSULIN ASPART SUPPLEMENTAL SCALE SQ SCH ×4 (04:46→20:52)
[2016-04-14 06:01] LABS: BICARBONATE 30.8 MEQ/L (21.0-32.0); POTASSIUM 3.8 MEQ/L (3.5-5.1)
[2016-04-14 08:30] VITALS: BP 121/80; PULSE 85; RESP 16; TEMP 98; O2SAT 96
[2016-04-14] MEDS: INSULIN DETEMIR 100 UNITS/ML VIAL SQ SCH ×2 (08:34→20:51)
[2016-04-14] MEDS: NICOTINE 21 MG/24 HR PATCH TD SCH (08:36)
[2016-04-14] MEDS: SODIUM CHLORIDE 0.9% FLUSH 5 ML FLUSH FLUSH SCH ×2 (08:36→20:53)
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
[2016-04-14] MEDS ORDERED: FAMOTIDINE 20 MG TAB PO PRN (11:45)
[2016-04-14] MEDS ORDERED: DIAZEPAM 5 MG TAB PO ONE (11:45)
[2016-04-14 12:30] VITALS: BP 138/75; PULSE 79; RESP 18; TEMP 96.5; O2SAT 92
[2016-04-14] MEDS ORDERED: IOHEXOL 350 MG/ML 10 ML VIAL (for RAD DIAG) IV ONE (15:12)
--- NOTE | 2016-04-14 16:19 | RADRPT ---
EXAM DATE/TIME: 04/14/2016 14:50 [facility] COMPARISON: CT LUMBAR SPINE W/O CONTRAST, April 01, 2016, 14:23. INDICATIONS : Coccygeal midline cutaneous fistula draining yellow fluid IV CONTRAST: 97 cc Omnipaque 350 (iohexol) IV ORAL CONTRAST: No oral contrast ingested. RADIATION DOSE: 32.95 CTDIvol (mGy) MEDICAL HISTORY : Hepatitis. Cirrhosis. Diabetes mellitus type 2.DVT SURGICAL HISTORY : Pelvic repair and Right BKA ENCOUNTER: Subsequent ACUITY: 3 days PAIN SCALE: 4/10 LOCATION: pelvis TECHNIQUE: Volumetric scanning of the pelvis was performed. Using automated exposure control and adjustment of the mA and/or kV according to patient size, radiation dose was kept as low as reasonably achievable t o obtain optimal diagnostic quality images. FINDINGS: BOWEL/MESENTERY: The visualized small and large bowel demonstrate no acute abnormality. There is no free fluid. BLADDER: There is no wall thickening or mass. Delayed imaging of the bladder demonstrates no extravasation of contrast. A Allen catheter in place. RETROPERITONEUM: There is no aneurysm or lymphadenopathy. REPRODUCTIVE: Within normal limits. INGUINAL: There is no lymphadenopathy or hernia. MUSCULOSKELETAL: Fusion at the lumbosacral junction with postsurgical changes and artifact. Right-sided neural stimula tor device. There is a decubitus ulcer in the right buttock adjacent to the sacrum on the right. Ther e is subcutaneous emphysema. Small fluid collection measures approximately 8.1 x 3.6 cm.. POST CONTRAST: No abnormal areas of enhancement are seen. CONCLUSION: 1. Urinary bladder unremarkable. No fistula of the bladder. 2. Fluid collection posteriorly in the right buttock measures 8.1 x 2.6 cm. Subcutaneous emphysema co nsistent with decubitus ulcer/abscess. This appears unchanged. There is significant artifact in the s acrum from adjacent hardware. Vlad Kirkpatrick MD on April 14, 2016 at 16:13 Board Certified Radiologist. This report was verified electronically.
[2016-04-14 17:19] VITALS: PULSE 71; RESP 19; TEMP 98; O2SAT 98
[2016-04-14 20:00] VITALS: BP 127/75; PULSE 78; RESP 20; TEMP 96.9; O2SAT 98
[2016-04-14] MEDS: REMOVE OLD NICODERM (NICOTINE) PATCH TD SCH (20:53)
[2016-04-15] VITALS: BP 131/78; PULSE 76; RESP 20; TEMP 96.2; O2SAT 97
[2016-04-15] MEDS: HEPARIN SODIUM - SQ 10,000 UNITS/ML VIAL SQ SCH ×3 (00:22→18:00)
[2016-04-15] MEDS: HYDROmorphone HCL PF 1 MG/ML VIAL IV PUSH PRN ×4 (02:08→18:12)
[2016-04-15] MEDS: INSULIN ASPART SUPPLEMENTAL SCALE SQ SCH ×4 (04:30→21:54)
[2016-04-15 08:00] VITALS: BP 139/98; PULSE 84; RESP 20; TEMP 96.1; O2SAT 96
[2016-04-15] MEDS: INSULIN DETEMIR 100 UNITS/ML VIAL SQ SCH ×2 (08:38→21:49)
[2016-04-15] MEDS: NICOTINE 21 MG/24 HR PATCH TD SCH ×2 (08:39→09:00)
[2016-04-15] MEDS: SODIUM CHLORIDE 0.9% FLUSH 5 ML FLUSH FLUSH SCH ×2 (08:40→21:50)
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
[2016-04-15 12:00] VITALS: BP 149/74; PULSE 96; RESP 20; TEMP 97; O2SAT 84
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
[2016-04-15 14:00] VITALS: BP 123/71; PULSE 80; RESP 22; TEMP 98.3; O2SAT 97
--- NOTE | 2016-04-15 15:44 | HHI.IDPN ---
Subjective Subjective Remarks Dr Logan's input appreciated pt is afebrile Dr Shannon planning I+D tomorrow Antibiotics none Allergies: Coded Allergies: Morphine (Unverified Allergy, Severe, nausea and vomiting, 03/23/16) Nonsteroidal Anti-Inflammatory Agts (Verified Adverse Reaction, Severe, INCONTINENCE, 03/23/16) Objective . Vital Signs Date Time Temp Pulse Resp B/P Pulse Ox O2 Delivery O2 Flow Rate FiO2 04/15/16 12:00 97.0 96 20 149/74 84 04/15/16 08:00 96.1 84 20 139/98 96 04/15/16 06:53 16 04/15/16 05:28 16 04/15/16 00:00 96.2 76 20 131/78 97 04/14/16 20:00 96.9 78 20 127/75 98 04/14/16 17:19 98.0 71 19 98 04/14/16 04/14/16 04/15/16 15:00 23:00 07:00 Intake Total 895 ml 480 ml 720 ml Output Total 600 ml 1300 ml 1400 ml Balance 295 ml -820 ml -680 ml Intake Oral 895 ml 480 ml 720 ml Output Urine Total 600 ml 1300 ml 1400 ml # Bowel Movements 1 . Laboratory Tests Test 04/14/16 05:20 Sodium Level 136 MEQ/L Potassium Level 3.8 MEQ/L Chloride Level 101 MEQ/L Carbon Dioxide Level 30.8 MEQ/L Anion Gap 4 MEQ/L Blood Urea Nitrogen 11 MG/DL Creatinine 1.09 MG/DL Estimat Glomerular Filtration 72 ML/MIN Rate Random Glucose 195 MG/DL Calcium Level 8.6 MG/DL Imaging Last Impressions Pelvis CT 04/14/16 0000 Signed Impressions: Service Date/Time: Thursday, April 14, 2016 14:50 - CONCLUSION: 1. Urinary bladder unremarkable. No fistula of the bladder. 2. Fluid collection posteriorly in the right buttock measures 8.1 x 2.6 cm. Subcutaneous emphysema consistent with decubitus ulcer/abscess. This appears unchanged. There is significant artifact in the sacrum from adjacent hardware. Vlad Kirkpatrick MD Lumbar Spine MRI 04/02/16 0000 Signed Impressions: Service Date/Time: March 14:40 - CONCLUSION: 1. Orthopedic hardware totally obscures L4-S1. 2. No abscess observed on these limited images. Christoph Deng Jr., MD Renal Ultrasound 04/01/16 0000 Signed Impressions: Service Date/Time: Friday, April 01, 2016 22:13 - CONCLUSION: 1. Enlargement of the kidneys bilaterally. 2. Splenic enlargement. Miguel Skelton MD Lumbar Spine CT 04/01/16 0000 Signed Impressions: Service Date/Time: Friday, April 01, 2016 14:23 - CONCLUSION: 1. The patient is status post fusion at the L4-S1 level with pedicle screws and posterior fixation rods. The hardware remains intact in appearance. 2. The L4- 5 and L5-S1 levels are not well delineated due to streak artifact. The thecal sac and foramina could not be evaluated. 3. Moderate central canal stenosis L3-4 secondary to disc bulge and degenerative change involving the facets. Todd Rothman MD ADDENDUM: There are multiple small gas collections in the posterior soft tissues. The largest is located posterior to the L3-4 interspace along the right paraspinous musculature and measures approximately 5 x 1 cm. This is best seen on axial image #72. There are multiple smaller rounded gas collections located more inferiorly in the posterior soft tissues measuring approximately 0.5-2 cm in diameter. The adjacent bony structures are intact in appearance with no definite destructive change. There is no large drainable fluid collection. Visualization is suboptimal due to the streak artifact. There is inflammatory change in these regions. Todd Rothman MD Bone Scan Nuclear Medicine 04/01/16 0000 Signed Impressions: Service Date/Time: Friday, April 01, 2016 09:36 - CONCLUSION: 1. Suboptimal incomplete study with no delayed imaging. 2. Focal area of hyperemia on the right on the flow and blood pool images. This is nonspecific and could represent cellulitis. Osteomyelitis cannot be excluded without delayed images. Todd Rothman MD Chest X-Ray 03/30/16 0000 Signed Impressions: Service Date/Time: Wednesday, March 30, 2016 16:50 - CONCLUSION: Mild cardiomegaly with no evidence of pneumonia or pulmonary edema. oTdd Rothman MD Physical Exam CONSTITUTIONAL/GENERAL: This is am morbidly obese patient, in no apparent distress. SKIN: No jaundice, rashes, or lesions. RESPIRATORY/CHEST: Symmetric, unlabored respirations. GASTROINTESTINAL: Abdomen benign MUSCULOSKELETAL: Extremities without clubbing, cyanosis, quite prominent LE edema.. No mottling or clubbing. sp R BKA BACK: well healed scar lower back No active drainage noted today Non erythemaout but persistentkly indurated R buttock, not tender to palpation both buttocks quite edematous pain pump i place no erytjea on UOQ of R buttock w/o any skin changes around it NEUROLOGICAL: Awake and alert. Motor and sensory grossly within normal limits. Follows commands. Normal speech. Moves all extremities. Assessment & Plan Remarks No fistula of the bladder. Fluid collection posteriorly in the right buttock measures 8.1 x 2.6 cm ? abscess. - growing nl skin edy previously, doubt clin sign - previously suspected but not proven underlying hardware infx, no fistiula ARF : resolved urine eos negative Rec's: agree with plan for I+D will chk intraop clx: routine, AFB, fungal further rec's upon inbtraop findings dw John Shannon, Doreen Mckenzie,Kim Muller MD Apr 15, 2016 15:44
[2016-04-15] MEDS: REMOVE OLD NICODERM (NICOTINE) PATCH TD SCH (21:00)
[2016-04-16] VITALS: BP 157/84; PULSE 80; RESP 17; TEMP 97.2; O2SAT 98
[2016-04-16] MEDS: HEPARIN SODIUM - SQ 10,000 UNITS/ML VIAL SQ SCH ×3 (02:00→17:15)
[2016-04-16] MEDS: HYDROmorphone HCL PF 1 MG/ML VIAL IV PUSH PRN ×3 (02:48→20:16)
[2016-04-16] MEDS: SODIUM CHLORIDE 0.9% FLUSH 5 ML FLUSH FLUSH PRN (02:48)
[2016-04-16 04:00] VITALS: BP 132/78; PULSE 77; RESP 17; TEMP 96.9; O2SAT 98
[2016-04-16] MEDS ORDERED: SODIUM CHLORID 0.9% 500 ML IV SCH (06:45)
[2016-04-16] MEDS: INSULIN ASPART SUPPLEMENTAL SCALE SQ SCH ×4 (07:00→22:05)
[2016-04-16] MEDS: NICOTINE 21 MG/24 HR PATCH TD SCH (07:27)
[2016-04-16] MEDS: INSULIN DETEMIR 100 UNITS/ML VIAL SQ SCH ×2 (07:27→21:59)
[2016-04-16] MEDS: SODIUM CHLORIDE 0.9% FLUSH 5 ML FLUSH FLUSH SCH ×2 (07:30→20:15)
[2016-04-16] MEDS ORDERED: LIDOCAINE 1%/EPINEPHrine 1:100,000 SOLN 30 ML VIAL ONE (07:46)
[2016-04-16] MEDS ORDERED: BUPIVACAINE/EPINEPHRINE 0.25% PF 30 ML VIAL ONE (07:48)
[2016-04-16 08:00] VITALS: BP 140/85; PULSE 75; RESP 20; TEMP 97.8; O2SAT 98
[2016-04-16] MEDS: LACTATED RINGER'S 1000 ML IV SCH (09:35)
[2016-04-16] MEDS ORDERED: ACETAMINOPHEN 1000 MG/100 ML VIAL IV ONE (10:09)
[2016-04-16] MEDS ORDERED: DEXAMETHASONE SOD PHOS 4 MG/ML VIAL ONE (10:10)
[2016-04-16] MEDS ORDERED: FAMOTIDINE 20 MG/2 ML VIAL ONE (10:10)
[2016-04-16] MEDS ORDERED: MIDAZOLAM HCL 2 MG/2 ML VIAL ONE (10:10)
[2016-04-16] MEDS ORDERED: fentaNYL CITRATE 250 MCG/5 ML AMP ONE ×2 (10:10→12:58)
[2016-04-16] MEDS ORDERED: ceFAZolin 2 GM PREMIX 50 ML ONE (11:37)
[2016-04-16] MEDS ORDERED: PROPOFOL 200 MG/20 ML AMP IV ONE (12:00)
[2016-04-16] MEDS ORDERED: NEOSTIGMINE 3 MG/3 ML SYR IV ONE (12:00)
[2016-04-16] MEDS ORDERED: ONDANSETRON HCL 4 MG/2 ML VIAL IV PUSH ONE (12:00)
[2016-04-16] MEDS ORDERED: *LABETALOL HCL 100 MG/20 ML VIAL PERIprocedural Use ONLY ONE (12:47)
[2016-04-16] MEDS ORDERED: *HYDROmorphone PF 1 MG VIAL PERIprocedural Use ONLY ONE (13:02)
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
[2016-04-16 18:00] VITALS: BP_SYST 128; BP_SYST 141; BP_DIAS 78; BP_DIAS 95; PULSE 72; PULSE 95; RESP 19; TEMP 97.2; TEMP 98.7; O2SAT 97
[2016-04-16 20:00] VITALS: BP 115/66; PULSE 80; RESP 24; TEMP 97.7; O2SAT 97
[2016-04-16] MEDS: REMOVE OLD NICODERM (NICOTINE) PATCH TD SCH (21:00)
[2016-04-17] VITALS: BP 133/82; PULSE 92; RESP 22; TEMP 96; O2SAT 96
[2016-04-17] MEDS: HYDROmorphone HCL PF 1 MG/ML VIAL IV PUSH PRN ×6 (00:14→21:40)
[2016-04-17] MEDS: LACTULOSE SYRUP 20 GM/30 ML CUP PO PRN (00:19)
[2016-04-17] MEDS: HEPARIN SODIUM - SQ 10,000 UNITS/ML VIAL SQ SCH ×3 (01:32→16:40)
[2016-04-17] MEDS: SODIUM CHLORIDE 0.9% FLUSH 5 ML FLUSH FLUSH PRN (04:19)
[2016-04-17] MEDS: INSULIN ASPART SUPPLEMENTAL SCALE SQ SCH ×4 (06:32→20:29)
[2016-04-17] MEDS: LACTATED RINGER'S 1000 ML IV SCH (06:45)
[2016-04-17 08:00] VITALS: BP 136/72; PULSE 75; RESP 18; TEMP 96.2; O2SAT 96
[2016-04-17] MEDS: INSULIN DETEMIR 100 UNITS/ML VIAL SQ SCH ×2 (08:38→20:22)
[2016-04-17] MEDS: NICOTINE 21 MG/24 HR PATCH TD SCH (08:38)
[2016-04-17] MEDS: SODIUM CHLORIDE 0.9% FLUSH 5 ML FLUSH FLUSH SCH ×2 (08:38→20:22)
--- NOTE | 2016-04-17 10:50 | MP ---
cc: SHAVON HOGAN M.D. DATE OF SURGERY 04/16/2016 PREOPERATIVE DIAGNOSIS Chronic draining wound lower back POSTOPERATIVE DIAGNOSIS Probable infected spinal hardware PROCEDURE PERFORMED Irrigation, debridement and exploration lower back wound. SURGEON Shavon Hogan MD CO-SURGEON Elpidio Lynne MD, plastic surgery ANESTHESIA General endotracheal prone INDICATIONS FOR THE PROCEDURE Mr. Wheeler is a very pleasant 50-year-old gentleman who unfortunately has had a chronic draining wound in his lower midline incision from a previous spinal surgery. The patient also has a history of a large symptomatic hematoma in his right buttock which was I&D back in the fall of 2016. The patient presented to the hospital with two sinus tracts in the lower back region that have been chronically draining. He has had multiple cultures which grew skin edy. He has had multiple attempts at imaging, however due to metallic foreign bodies throughout his lower spine and pelvic region, it was difficult to say where these sinus tracts came from. At the bedside, I explored these with a Q-tip and they seemed to track superiorly and were quite deep. The consultation was made with neurosurgery Dr. Gambino who felt that infected hardware was not the source of these sinus tracts. Attempts were made to transfer the patient to the [facility] for formal neurosurgical evaluation for second opinion. However, this was not able to be done. Because the patient had been in the hospital for several weeks with no progress, I did offer him an exploration of the wound to see if we could determine the etiology of the chronic infection. I asked Dr. Lynne of plastic surgery to come with me to document the wound. INTRAOPERATIVE FINDINGS The patient had two sinus tracts in the lower back. We connected these two sinus tracts together and opened the wound. The wound tracked superiorly into the right lateral area. There were multiple pockets within the subcutaneous deep tissue tracking right down to the spine. We could palpate some hardware down in the wound on the lateral side. This was about 5 or 6 cm deep from the skin. There was chronic granulation tissue down in this area, as well as chronically inflamed rind-like tissue. This was debrided with a curette. All of these wounds tracked superior and laterally from the lower back incision. No other wounds went down toward the anus or toward the right buttock where the patient had previously had an I&D of a hematoma. It was clear from surgical exploration that these wounds originated from the lower back and likely represent infected spinal hardware. Dr. Lynne confirmed this. DETAILS The patient was identified, brought to the operating room, intubated on his bed. He was then placed in the prone position. Appropriate padding was ensured for face, hips, and knees. The buttock and lower back were then prepped and draped in the standard surgical fashion. Attention was first directed to the right buttock wound which was completely healed. There was no evidence of a sinus tract here. There is no evidence of a subcutaneous fluid or infection. As expected, this was a chronic wound that had completely healed. Attention was now directed to the lower midline. In the lower midline of the patient's back at the bottom part of his large incision, there were two sinus tracts about 1-2 cm each. They were by about a 4 cm distance. We elected to go ahead and connect these so we could formally explore the wound. Local anesthetic was injected and a knife was used to connect the two sinus tracts. Upon opening the sinus tracts, we immediately identified a large cavity which tract superior and to the right lateral position. There was very inflamed tissue in here. There was inflammatory an rind and granulation tissue throughout. This was suctioned out and then using a sharp curettage was debrided back to normal healthy tissue. We then followed the wound up. There were two sinus tracts, one going superior and lateral and they are going to lateral. None of the tracts went down toward the patient's buttock or anus. All the wounds went superior. Using blunt finger dissection, the tracts were opened up and followed. At the base of the tracts, we could feel metal screws. It was felt this was the source of the chronic infection. Again, the wound was explored in all directions and all of the tunnels and sinuses were directed right down to the spine and in the midline in the right lateral position. We therefore elected to terminate the procedure as we felt we had identify the source of the chronic draining wound and sinuses. Several pieces of tissue were sent for culture and we also obtained intraoperative cultures. The wound was copiously irrigated with about two liters of warm saline solution. All loose tissue was debrided. The wound was then filled with local anesthetic. A small Vac sponge was placed into the wound and the Vac was applied. The patient was then returned to the supine position, awakened and successfully extubated and brought to the recovery room. I called Dr. Gambino at the conclusion of the procedure and let him no the intraoperative findings. He is going to contact the [facility] neurosurgeon as the patient will likely need some type of extensive debridement of this lower wound, possible flap closure, possible hardware removal, as I do believe that the foreign body is the likely source of the chronic infection. MD NICOLE Newton/DAMIÁN /1:56 PM /10:21 AM
--- NOTE | 2016-04-17 11:27 | HHI.PR ---
Subjective Subjective Notes Up to wheelchair Unplugged Wound Vac tubing from machine Objective Vitals/I&O Vital Signs Date Time Temp Pulse Resp B/P Pulse Ox O2 Delivery O2 Flow Rate FiO2 04/17/16 08:00 96.2 75 18 136/72 96 04/16/16 13:30 Nasal Cannula 2 Labs Date/Time Procedure Status Source Growth 04/16/16 11:45 Gram Stain - Final Resulted Wound Other 04/16/16 11:45 Wound Culture Resulted Wound Other Pending 04/16/16 11:45 Fungal Smear - Final Resulted Wound Other NO FUNGAL ELEMENTS SEEN. 04/16/16 11:45 Fungal Culture Resulted Wound Other Pending 04/16/16 11:45 Acid Fast Stain Received Wound Other Pending 04/16/16 11:45 Mycobacterial Culture Received Wound Other Pending Cardiovascular: Regular Lungs: Clear Abdomen: Non-distended, Non-tender Extremities: Other (large buttocks wound with Wound Vac in place) A/P Assessment and Plan 50 year old male with chronic buttocks would -POD1 exploration of wound -Wound vac placed -Suggest transfer to tertiary facility -If still in the hospital Wednesday will plan to change Wound Vac I CERTIFY AND ATTEST THAT I PERSONALLY EXAMINED THIS PATIENT. MS GONZALEZ DOCUMENTED OUR VISIT AND ENTERED ORDERS IN THE EMR UNDER MY DIRECT SUPERVISION. I DISCUSSED THE CARE PLAN WITH THE NURSING STAFF AND FAMILY (IF PRESENT). SHAVON HOGAN MD FACS Kerrie Gonzalez Apr 17, 2016 11:27 Shavon Hogan MD Apr 23, 2016 11:47
[2016-04-17 12:00] VITALS: BP 129/82; PULSE 93; RESP 20; TEMP 96.9; O2SAT 93
--- NOTE | 2016-04-17 14:34 | HHI.IDPN ---
Subjective Subjective Remarks OP report reviewed Per intra-op surgeons assesment pt infection originates from harware Gstains 4/4 negative; One of clx is grtowingt PROTEUS pt sp I+D + VAC placement no fever Antibiotics none Allergies: Coded Allergies: Morphine (Unverified Allergy, Severe, nausea and vomiting, 03/23/16) Nonsteroidal Anti-Inflammatory Agts (Verified Adverse Reaction, Severe, INCONTINENCE, 03/23/16) Objective . Vital Signs Date Time Temp Pulse Resp B/P Pulse Ox O2 Delivery O2 Flow Rate FiO2 04/17/16 12:00 96.9 93 20 129/82 93 04/17/16 08:00 96.2 75 18 136/72 96 04/17/16 00:00 96.0 92 22 133/82 96 04/16/16 20:00 97.7 80 24 115/66 97 04/16/16 18:00 98.7 95 19 141/95 97 04/16/16 04/16/16 04/17/16 15:00 23:00 07:00 Intake Total 400 ml 480 ml 480 ml Output Total 1050 ml 450 ml 1800 ml Balance -650 ml 30 ml -1320 ml Intake Oral 0 ml 480 ml 480 ml Other 400 ml Output Urine Total 400 ml 350 ml 1800 ml Drainage Total 100 ml Estimated Blood Loss 50 ml Other 600 ml # Bowel Movements 0 0 . Microbiology Date/Time Procedure Status Source Growth 04/16/16 11:45 Gram Stain - Final Resulted Fluid Other 04/16/16 11:45 Body Fluid Culture - Preliminary Resulted Proteus Species 04/16/16 11:45 Acid Fast Stain Worksheet Fluid Other Pending 04/16/16 11:45 Mycobacterial Culture Worksheet Fluid Other Pending 04/16/16 11:45 Fungal Smear - Final Resulted Fluid Other NO FUNGAL ELEMENTS SEEN. 04/16/16 11:45 Fungal Culture Resulted Fluid Other Pending 04/16/16 11:45 Gram Stain - Final Resulted Wound Other 04/16/16 11:45 Wound Culture - Preliminary Resulted Wound Other NO GROWTH IN 24 HOURS. 04/16/16 11:45 Acid Fast Stain Received Wound Other Pending 04/16/16 11:45 Mycobacterial Culture Received Wound Other Pending 04/16/16 11:45 Fungal Smear - Final Resulted Wound Other NO FUNGAL ELEMENTS SEEN. 04/16/16 11:45 Fungal Culture Resulted Wound Other Pending 04/16/16 11:45 Gram Stain - Final Resulted Wound Other 04/16/16 11:45 Wound Culture - Preliminary Resulted Wound Other NO GROWTH IN 24 HOURS. 04/16/16 11:45 Acid Fast Stain Received Wound Other Pending 04/16/16 11:45 Mycobacterial Culture Received Wound Other Pending 04/16/16 11:45 Fungal Smear - Final Resulted Wound Other NO FUNGAL ELEMENTS SEEN. 04/16/16 11:45 Fungal Culture Resulted Wound Other Pending 04/16/16 11:45 Gram Stain - Final Resulted Wound Other 04/16/16 11:45 Wound Culture - Preliminary Resulted Wound Other NO GROWTH IN 24 HOURS. 04/16/16 11:45 Acid Fast Stain Received Wound Other Pending 04/16/16 11:45 Mycobacterial Culture Received Wound Other Pending 04/16/16 11:45 Fungal Smear - Final Resulted Wound Other NO FUNGAL ELEMENTS SEEN. 04/16/16 11:45 Fungal Culture Resulted Wound Other Pending Imaging Last Impressions Pelvis CT 04/14/16 0000 Signed Impressions: Service Date/Time: Thursday, April 14, 2016 14:50 - CONCLUSION: 1. Urinary bladder unremarkable. No fistula of the bladder. 2. Fluid collection posteriorly in the right buttock measures 8.1 x 2.6 cm. Subcutaneous emphysema consistent with decubitus ulcer/abscess. This appears unchanged. There is significant artifact in the sacrum from adjacent hardware. Vlad Kirkpatrick MD Lumbar Spine MRI 04/02/16 0000 Signed Impressions: Service Date/Time: March 14:40 - CONCLUSION: 1. Orthopedic hardware totally obscures L4-S1. 2. No abscess observed on these limited images. Christoph Deng Jr., MD Renal Ultrasound 04/01/16 0000 Signed Impressions: Service Date/Time: Friday, April 01, 2016 22:13 - CONCLUSION: 1. Enlargement of the kidneys bilaterally. 2. Splenic enlargement. Miguel Skelton MD Lumbar Spine CT 04/01/16 0000 Signed Impressions: Service Date/Time: Friday, April 01, 2016 14:23 - CONCLUSION: 1. The patient is status post fusion at the L4-S1 level with pedicle screws and posterior fixation rods. The hardware remains intact in appearance. 2. The L4- 5 and L5-S1 levels are not well delineated due to streak artifact. The thecal sac and foramina could not be evaluated. 3. Moderate central canal stenosis L3-4 secondary to disc bulge and degenerative change involving the facets. Todd Rothman MD ADDENDUM: There are multiple small gas collections in the posterior soft tissues. The largest is located posterior to the L3-4 interspace along the right paraspinous musculature and measures approximately 5 x 1 cm. This is best seen on axial image #72. There are multiple smaller rounded gas collections located more inferiorly in the posterior soft tissues measuring approximately 0.5-2 cm in diameter. The adjacent bony structures are intact in appearance with no definite destructive change. There is no large drainable fluid collection. Visualization is suboptimal due to the streak artifact. There is inflammatory change in these regions. Todd Rothman MD Bone Scan Nuclear Medicine 04/01/16 0000 Signed Impressions: Service Date/Time: Friday, April 01, 2016 09:36 - CONCLUSION: 1. Suboptimal incomplete study with no delayed imaging. 2. Focal area of hyperemia on the right on the flow and blood pool images. This is nonspecific and could represent cellulitis. Osteomyelitis cannot be excluded without delayed images. Todd Rothman MD Chest X-Ray 03/30/16 0000 Signed Impressions: Service Date/Time: Wednesday, March 30, 2016 16:50 - CONCLUSION: Mild cardiomegaly with no evidence of pneumonia or pulmonary edema. Todd Rothman MD Physical Exam CONSTITUTIONAL/GENERAL: This is am morbidly obese patient, in no apparent distress. SKIN: No jaundice, rashes, or lesions. RESPIRATORY/CHEST: Symmetric, unlabored respirations. BACK: VAC in place with serosang dc NEUROLOGICAL: Awake and alert. Motor and sensory grossly within normal limits. Follows commands. Normal speech. Moves all extremities. 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
[2016-04-17] MEDS ORDERED: cefTRIAXone INJ 2,000 MG in SODIUM CHLORIDE 0.9% INJ 100 ML IV SCH (15:00)
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
[2016-04-17 16:00] VITALS: BP 134/70; PULSE 88; RESP 18; TEMP 98.9; O2SAT 94
[2016-04-17 20:00] VITALS: BP 167/80; PULSE 77; RESP 20; TEMP 97.1; O2SAT 96
[2016-04-17] MEDS: REMOVE OLD NICODERM (NICOTINE) PATCH TD SCH (21:00)
[2016-04-17] MEDS: ZOLPIDEM TARTRATE 5 MG TAB PO PRN (21:43)
[2016-04-18] VITALS: BP 156/82; PULSE 80; RESP 20; TEMP 96.5; O2SAT 95
[2016-04-18] MEDS: HEPARIN SODIUM - SQ 10,000 UNITS/ML VIAL SQ SCH ×3 (00:24→17:11)
[2016-04-18] MEDS: SODIUM CHLORIDE 0.9% FLUSH 5 ML FLUSH FLUSH PRN (02:42)
[2016-04-18] MEDS: HYDROmorphone HCL PF 1 MG/ML VIAL IV PUSH PRN ×5 (02:42→20:59)
[2016-04-18] MEDS: LACTATED RINGER'S 1000 ML IV SCH (06:45)
[2016-04-18] MEDS: INSULIN ASPART SUPPLEMENTAL SCALE SQ SCH ×4 (07:36→21:11)
[2016-04-18 08:00] VITALS: BP 153/91; PULSE 76; RESP 18; TEMP 97.9; O2SAT 97
[2016-04-18] MEDS ORDERED: INSULIN DETEMIR 100 UNITS/ML VIAL SQ SCH (09:00)
[2016-04-18] MEDS: NICOTINE 21 MG/24 HR PATCH TD SCH (09:11)
[2016-04-18] MEDS: SODIUM CHLORIDE 0.9% FLUSH 5 ML FLUSH FLUSH SCH ×2 (09:12→21:12)
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
[2016-04-18 12:00] VITALS: BP 157/83; PULSE 72; RESP 18; TEMP 96.4; O2SAT 96
[2016-04-18 16:00] VITALS: BP 137/64; PULSE 75; RESP 20; TEMP 97; O2SAT 96
[2016-04-18] MEDS: SODIUM CHLORIDE 0.9% IV SCH (16:14)
[2016-04-18] MEDS: DAPTOMYCIN IV SCH (16:14)
[2016-04-18] MEDS: PIPERACIL-TAZO 3.375 GM PREMIX 50 ML IV SCH ×2 (16:14→20:58)
[2016-04-18] MEDS: VITAMINS A & D OINT 60 GM TUBE TOP SCH ×2 (16:15→21:00)
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
[2016-04-18 20:00] VITALS: BP 124/56; PULSE 74; RESP 20; TEMP 97; O2SAT 97
[2016-04-18] MEDS: SENNOSIDES 8.6 MG TAB PO SCH (20:58)
[2016-04-18] MEDS: REMOVE OLD NICODERM (NICOTINE) PATCH TD SCH (21:00)
[2016-04-18] MEDS: INSULIN DETEMIR 100 UNITS/ML VIAL SQ SCH (21:08)
[2016-04-19] VITALS: BP 146/72; PULSE 71; RESP 20; TEMP 97.3; O2SAT 97
[2016-04-19] MEDS: PIPERACIL-TAZO 3.375 GM PREMIX 50 ML IV SCH ×4 (02:08→22:12)
[2016-04-19] MEDS: HEPARIN SODIUM - SQ 10,000 UNITS/ML VIAL SQ SCH ×3 (02:08→17:49)
[2016-04-19] MEDS: HYDROmorphone HCL PF 1 MG/ML VIAL IV PUSH PRN ×4 (02:09→22:12)
[2016-04-19] MEDS: INSULIN ASPART SUPPLEMENTAL SCALE SQ SCH ×4 (06:53→20:59)
[2016-04-19 08:00] VITALS: BP 158/83; PULSE 78; RESP 18; TEMP 96.9; O2SAT 96
[2016-04-19] MEDS: VITAMINS A & D OINT 60 GM TUBE TOP SCH ×2 (09:00→21:00)
[2016-04-19] MEDS: NICOTINE 21 MG/24 HR PATCH TD SCH (09:51)
[2016-04-19] MEDS: SENNOSIDES 8.6 MG TAB PO SCH ×2 (09:51→20:50)
[2016-04-19] MEDS: INSULIN DETEMIR 100 UNITS/ML VIAL SQ SCH ×2 (09:53→20:59)
[2016-04-19] MEDS: SODIUM CHLORIDE 0.9% FLUSH 5 ML FLUSH FLUSH SCH ×2 (09:54→20:51)
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
[2016-04-19 12:00] VITALS: BP 130/95; PULSE 79; RESP 18; TEMP 96.1; O2SAT 96
[2016-04-19 12:46] LABS: BICARBONATE 27.3 MEQ/L (21.0-32.0); POTASSIUM 3.8 MEQ/L (3.5-5.1)
[2016-04-19] MEDS: SODIUM CHLORIDE 0.9% IV SCH (15:51)
[2016-04-19] MEDS: DAPTOMYCIN IV SCH (15:51)
[2016-04-19 16:00] VITALS: BP 123/58; PULSE 70; RESP 16; TEMP 96.1; O2SAT 96
[2016-04-19 20:00] VITALS: BP 110/65; PULSE 81; RESP 20; TEMP 97.9; O2SAT 96
[2016-04-19] MEDS: REMOVE OLD NICODERM (NICOTINE) PATCH TD SCH (21:00)
[2016-04-20] VITALS: BP 124/62; PULSE 73; RESP 20; TEMP 97.7; O2SAT 96
[2016-04-20] MEDS: HEPARIN SODIUM - SQ 10,000 UNITS/ML VIAL SQ SCH ×3 (02:09→16:10)
[2016-04-20] MEDS: PIPERACIL-TAZO 3.375 GM PREMIX 50 ML IV SCH ×4 (02:09→21:23)
[2016-04-20] MEDS: LACTATED RINGER'S 1000 ML IV SCH (04:26)
[2016-04-20] MEDS: HYDROmorphone HCL PF 1 MG/ML VIAL IV PUSH PRN ×5 (04:30→23:27)
[2016-04-20] MEDS: INSULIN ASPART SUPPLEMENTAL SCALE SQ SCH ×4 (06:34→21:00)
[2016-04-20 08:00] VITALS: BP 119/66; PULSE 83; RESP 16; TEMP 98.1; O2SAT 96
[2016-04-20] MEDS: INSULIN DETEMIR 100 UNITS/ML VIAL SQ SCH ×2 (08:01→21:25)
[2016-04-20] MEDS: VITAMINS A & D OINT 60 GM TUBE TOP SCH ×2 (08:02→21:00)
[2016-04-20] MEDS: NICOTINE 21 MG/24 HR PATCH TD SCH (08:02)
[2016-04-20] MEDS: SENNOSIDES 8.6 MG TAB PO SCH ×2 (08:02→21:00)
[2016-04-20] MEDS: SODIUM CHLORIDE 0.9% FLUSH 5 ML FLUSH FLUSH SCH (08:02)
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
--- NOTE | 2016-04-20 14:43 | HHI.PR ---
Addendum to Inpatient Note Additional Information dw Maki Dietrich, Corona Zuniga Recommended fu with ortho since the hardware is in pelvis will RX x 6 wks with IV abx If HW is left in place after completiong of abx pt will need to be monitored for the signs of returning infx with resampling of fluid collections for clx shoul it reaccumulate Kim Mckenzie MD Apr 20, 2016 14:43
--- NOTE | 2016-04-20 14:51 | HHI.FF ---
Infusion Therapy Location of Infusion Therapy: Home Health Care IV Infusion Order Patient Information Patient Weight 155.8 kg Diagnosis: Diagnosis Infected hardware, abscess Coded Allergies: Morphine (Unverified Allergy, Severe, nausea and vomiting, 03/23/16) Nonsteroidal Anti-Inflammatory Agts (Verified Adverse Reaction, Severe, INCONTINENCE, 03/23/16) Administer Medication Cefepime 2 grams IV q 12 hours Start Treatment: Apr 20, 2016 Stop Treatment: May 29, 2016 Administer Medication Daptomycin q 24 hours 1250 mg Start Treatment: Apr 20, 2016 Stop Treatment: May 29, 2016 Additional Information Venous access: PICC Line Additional Instructions [x] Peripheral flush and dressing changes per protocol [x] Implanted port and 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 [] May leave port accessed during therapy. [] May leave peripheral site accessed for duration of therapy. [x] If patient has SOB or respiratory distress, check oxygen saturation. If less than 90% or clinical signs of respiratory distress, administer oxygen at 2 L/min. via nasal cannula and notify physician. [x] Anaphylaxis/Reaction orders: * Stop infusion. * Keep IV line open with saline flush. * Notify physician. * Monitor vital signs every 15 minutes until symptoms resolve. * Check Oxygen saturation; Oxygen at 2 L/min. via nasal cannula if less than 90% or clinical signs of respiratory distress. * Administer diphenhydramine (Benadryl) 25 mg IV STAT, (unless patient has received as pre-med). May repeat once, if necessary. * Solu-Cortef 250 mg IVP over 30-60 seconds, use 100 mg vials for each dissolution. * Epinephrine (1mg/1 ml) 0.3 mg subcutaneously or IVP now with any signs of respiratory distress. * Check with physician for new additional pre-med orders if patient is re- challenged or re-treated. [x] May remove PICC line when treatment complete, after confirming with Physician. [x] If the patient is admitted to the hospital, the ED, or transferred via [facility] , complete transfer form including medication reconciliation order sheet. Laboratory Tests Weekly Labs: CBC w/diff, Creatinine, LFT's (Hepatic function test), SED Rate, Serum CK Levels Kim Mckenzie MD Apr 20, 2016 14:51
--- NOTE | 2016-04-20 15:01 | HHI.FF ---
Face to Face Verification Diagnosis: (1) Seroma (2) Cellulitis of buttock, right Physical Therapy Order: Evaluate and Treat Home Health Nursing Order: Wound care and dressing changes Nursing assessment with vital signs IV medication administration I have seen patient Nabil Wheeler on 04/20/16. My clinical findings support the need for the requested home health care services because: Ltd mobility - disease progression Limited ability to care for self I certify that my clinical findings support that this patient is homebound because: Post-op weakness Unsteady gait/balance Sheri Newton MD Apr 20, 2016 15:01
[2016-04-20 16:00] VITALS: BP 123/67; PULSE 73; RESP 17; TEMP 97.9; O2SAT 97
[2016-04-20] MEDS: DAPTOMYCIN IV SCH (16:12)
[2016-04-20] MEDS: SODIUM CHLORIDE 0.9% IV SCH (16:12)
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
[2016-04-20 20:37] VITALS: BP 129/63; PULSE 72; RESP 18; TEMP 97.6; O2SAT 98
[2016-04-20] MEDS: REMOVE OLD NICODERM (NICOTINE) PATCH TD SCH (21:00)
[2016-04-21 00:25] VITALS: BP 124/58; PULSE 80; RESP 18; TEMP 98.1; O2SAT 97
[2016-04-21] MEDS: HEPARIN SODIUM - SQ 10,000 UNITS/ML VIAL SQ SCH ×3 (01:57→17:05)
[2016-04-21] MEDS: PIPERACIL-TAZO 3.375 GM PREMIX 50 ML IV SCH ×4 (01:59→22:27)
[2016-04-21] MEDS: SODIUM CHLORIDE 0.9% FLUSH 5 ML FLUSH FLUSH SCH ×3 (02:00→22:27)
[2016-04-21] MEDS: HYDROmorphone HCL PF 1 MG/ML VIAL IV PUSH PRN ×4 (04:01→17:17)
[2016-04-21 05:23] VITALS: BP 119/58; PULSE 77; RESP 20; TEMP 96.4; O2SAT 94
[2016-04-21] MEDS: LACTATED RINGER'S 1000 ML IV SCH (05:34)
[2016-04-21] MEDS: INSULIN ASPART SUPPLEMENTAL SCALE SQ SCH ×4 (06:35→22:32)
[2016-04-21 08:00] VITALS: BP 115/65; PULSE 189; RESP 17; TEMP 97.2; O2SAT 96
[2016-04-21] MEDS: NICOTINE 21 MG/24 HR PATCH TD SCH (08:57)
[2016-04-21] MEDS: INSULIN DETEMIR 100 UNITS/ML VIAL SQ SCH ×2 (09:00→22:31)
[2016-04-21] MEDS: SENNOSIDES 8.6 MG TAB PO SCH ×2 (09:00→21:00)
[2016-04-21] MEDS: VITAMINS A & D OINT 60 GM TUBE TOP SCH (09:00)
[2016-04-21 12:00] VITALS: BP 139/67; PULSE 77; RESP 17; TEMP 98.2; O2SAT 96
[2016-04-21 12:39] LABS: HEMATOCRIT 34.3 % (39.0-51.0); MEAN CELL VOLUME 93.4 FL (80.0-100.0); MEAN CORPUSCULAR HEMOGLOBIN 31.7 PG (27.0-34.0); MEAN CORPUSCULAR HGB CONC 33.9 % (32.0-36.0); PLATELET COUNT 123 TH/MM3 (150-450); RED BLOOD COUNT 3.68 MIL/MM3 (4.50-5.90); RED CELL DISTRIBUTION WIDTH 16.5 % (11.6-17.2); REVIEW FLAG FINAL; WHITE BLOOD COUNT 5.5 TH/MM3 (4.0-11.0)
--- NOTE | 2016-04-21 13:29 | HHI.PR ---
Subjective Subjective Notes Up in wheelchair Objective Vitals/I&O Vital Signs Date Time Temp Pulse Resp B/P Pulse Ox O2 Delivery O2 Flow Rate FiO2 04/21/16 12:00 98.2 77 17 139/67 96 Labs Laboratory Tests Test 04/21/16 04/21/16 05:57 12:04 Total Creatine Kinase 54 White Blood Count 5.5 Red Blood Count 3.68 Hemoglobin 11.7 Hematocrit 34.3 Mean Corpuscular Volume 93.4 Mean Corpuscular Hemoglobin 31.7 Mean Corpuscular Hemoglobin 33.9 Concent Red Cell Distribution Width 16.5 Platelet Count 123 Mean Platelet Volume 8.2 Cardiovascular: Regular Lungs: Clear Abdomen: Non-distended, Non-tender Narrative Exam sacral Wound Vac in place A/P Assessment and Plan 50 year old male with chronic buttocks would -Wund Vac change MW -Will fill out Wound Vac forms for CM -Dr. Siegel to eval today -No acute GS needs at this time -GS will sign off I CERTIFY AND ATTEST THAT I PERSONALLY EXAMINED THIS PATIENT. MS MOREL DOCUMENTED OUR VISIT AND ENTERED ORDERS IN THE EMR UNDER MY DIRECT SUPERVISION. I DISCUSSED THE CARE PLAN WITH THE NURSING STAFF AND FAMILY (IF PRESENT). Kerrie Arshad MD, FACS Apr 21, 2016 13:29 Srinivasan Shannon MD Apr 23, 2016 11:49
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
[2016-04-21] MEDS: DAPTOMYCIN IV SCH (15:12)
[2016-04-21] MEDS: SODIUM CHLORIDE 0.9% IV SCH (15:12)
[2016-04-21 16:00] VITALS: BP 127/58; PULSE 81; RESP 17; TEMP 96.2; O2SAT 92
--- NOTE | 2016-04-21 16:29 | RADRPT ---
EXAM DATE/TIME: 04/21/2016 16:06 [facility] COMPARISON: CHEST SINGLE AP, March 30, 2016, 16:50. INDICATIONS : PICC line placement. MEDICAL HISTORY : Diabetes mellitus type II. SURGICAL HISTORY : Lumbar fusion. ENCOUNTER: Initial ACUITY: 1 day PAIN SCORE: 0/10 LOCATION: Bilateral chest FINDINGS: A single view of the chest demonstrates cardiomegaly and pulmonary vascular congestion. The cardiomed iastinal contours are unremarkable. Osseous structures are intact. CONCLUSION: 1. Right-sided PICC line with tip in the SVC. 2. Cardiomegaly with pulmonary vascular congestion. Vlad Kirkpatrick MD on April 21, 2016 at 16:26 Board Certified Radiologist. This report was verified electronically.
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
[2016-04-21 20:00] VITALS: BP 144/70; PULSE 79; RESP 20; TEMP 97.2; O2SAT 96
[2016-04-21] MEDS: REMOVE OLD NICODERM (NICOTINE) PATCH TD SCH (21:00)
[2016-04-22] VITALS: BP 108/60; PULSE 78; RESP 20; TEMP 98; O2SAT 96
[2016-04-22] MEDS: PIPERACIL-TAZO 3.375 GM PREMIX 50 ML IV SCH ×3 (02:16→13:23)
[2016-04-22] MEDS: HEPARIN SODIUM - SQ 10,000 UNITS/ML VIAL SQ SCH ×2 (02:16→09:26)
[2016-04-22] MEDS: HYDROmorphone HCL PF 1 MG/ML VIAL IV PUSH PRN ×3 (02:17→11:25)
[2016-04-22] MEDS: VITAMINS A & D OINT 60 GM TUBE TOP SCH ×2 (02:21→09:00)
[2016-04-22] MEDS: INSULIN ASPART SUPPLEMENTAL SCALE SQ SCH ×2 (06:05→11:33)
[2016-04-22] MEDS: LACTATED RINGER'S 1000 ML IV SCH (06:12)
[2016-04-22 08:00] VITALS: BP 136/74; PULSE 77; RESP 20; TEMP 97.7; O2SAT 95
[2016-04-22] MEDS: SODIUM CHLORIDE 0.9% FLUSH 5 ML FLUSH FLUSH SCH (09:00)
[2016-04-22] MEDS: SENNOSIDES 8.6 MG TAB PO SCH (09:00)
[2016-04-22] MEDS ORDERED: INSULIN DETEMIR 100 UNITS/ML VIAL SQ SCH (09:00)
[2016-04-22] MEDS: NICOTINE 21 MG/24 HR PATCH TD SCH (09:00)
[2016-04-22] MEDS: SODIUM CHLORIDE 0.9% FLUSH 5 ML FLUSH FLUSH PRN (11:25)
[2016-04-22] MEDS ORDERED: OXYC-392 PO (11:58)
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
[2016-04-22 12:00] VITALS: BP 148/74; PULSE 88; RESP 20; TEMP 95.5; O2SAT 96
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
[2016-04-22] MEDS: SODIUM CHLORIDE 0.9% IV SCH (13:59)
[2016-04-22] MEDS: DAPTOMYCIN IV SCH (13:59)
--- NOTE | 2016-04-22 19:22 | HHI.IDPN ---
Subjective Subjective Remarks ID - delayed entry - pt was seen around 1300 today case was d/w multiple providers over the last few days including John Keys, Maki, Doreen No new co tolerating abx OK pt was adviced to fu in a tertiary center Antibiotics dapto cefepime Allergies: Coded Allergies: Morphine (Unverified Allergy, Severe, nausea and vomiting, 05/07/16) Nonsteroidal Anti-Inflammatory Agts (Verified Adverse Reaction, Severe, INCONTINENCE, 05/07/16) Objective . Vital Signs Date Time Temp Pulse Resp B/P Pulse Ox O2 Delivery O2 Flow Rate FiO2 04/22/16 12:00 95.5 88 20 148/74 96 04/22/16 08:00 97.7 77 20 136/74 95 04/22/16 00:00 98.0 78 20 108/60 96 04/21/16 20:00 97.2 79 20 144/70 96 04/21/16 04/21/16 04/22/16 15:00 23:00 07:00 Intake Total 446 ml 530 ml 530 ml Output Total 900 ml 1850 ml 350 ml Balance -454 ml -1320 ml 180 ml Intake Oral 340 ml 480 ml 480 ml IV Total 106 ml 50 ml 50 ml Output Urine Total 900 ml 1850 ml 350 ml # Bowel Movements 0 . Laboratory Tests Test 04/21/16 12:04 White Blood Count 5.5 TH/MM3 Red Blood Count 3.68 MIL/MM3 Hemoglobin 11.7 GM/DL Hematocrit 34.3 % Mean Corpuscular Volume 93.4 FL Mean Corpuscular Hemoglobin 31.7 PG Mean Corpuscular Hemoglobin 33.9 % Concent Red Cell Distribution Width 16.5 % Platelet Count 123 TH/MM3 Mean Platelet Volume 8.2 FL Laboratory Tests Test 04/21/16 05:57 Total Creatine Kinase 54 U/L Imaging Last Impressions Pelvis CT 04/14/16 0000 Signed Impressions: Service Date/Time: Thursday, April 14, 2016 14:50 - CONCLUSION: 1. Urinary bladder unremarkable. No fistula of the bladder. 2. Fluid collection posteriorly in the right buttock measures 8.1 x 2.6 cm. Subcutaneous emphysema consistent with decubitus ulcer/abscess. This appears unchanged. There is significant artifact in the sacrum from adjacent hardware. Vlad Kirkpatrick MD Lumbar Spine MRI 04/02/16 0000 Signed Impressions: Service Date/Time: March 14:40 - CONCLUSION: 1. Orthopedic hardware totally obscures L4-S1. 2. No abscess observed on these limited images. Christoph Deng Jr., MD Renal Ultrasound 04/01/16 0000 Signed Impressions: Service Date/Time: Friday, April 01, 2016 22:13 - CONCLUSION: 1. Enlargement of the kidneys bilaterally. 2. Splenic enlargement. Miguel Skelton MD Lumbar Spine CT 04/01/16 0000 Signed Impressions: Service Date/Time: Friday, April 01, 2016 14:23 - CONCLUSION: 1. The patient is status post fusion at the L4-S1 level with pedicle screws and posterior fixation rods. The hardware remains intact in appearance. 2. The L4- 5 and L5-S1 levels are not well delineated due to streak artifact. The thecal sac and foramina could not be evaluated. 3. Moderate central canal stenosis L3-4 secondary to disc bulge and degenerative change involving the facets. Todd Rothman MD ADDENDUM: There are multiple small gas collections in the posterior soft tissues. The largest is located posterior to the L3-4 interspace along the right paraspinous musculature and measures approximately 5 x 1 cm. This is best seen on axial image #72. There are multiple smaller rounded gas collections located more inferiorly in the posterior soft tissues measuring approximately 0.5-2 cm in diameter. The adjacent bony structures are intact in appearance with no definite destructive change. There is no large drainable fluid collection. Visualization is suboptimal due to the streak artifact. There is inflammatory change in these regions. Todd Rothman MD Bone Scan Nuclear Medicine 04/01/16 0000 Signed Impressions: Service Date/Time: Friday, April 01, 2016 09:36 - CONCLUSION: 1. Suboptimal incomplete study with no delayed imaging. 2. Focal area of hyperemia on the right on the flow and blood pool images. This is nonspecific and could represent cellulitis. Osteomyelitis cannot be excluded without delayed images. Todd Rothman MD Chest X-Ray 03/30/16 0000 Signed Impressions: Service Date/Time: Wednesday, March 30, 2016 16:50 - CONCLUSION: Mild cardiomegaly with no evidence of pneumonia or pulmonary edema. Todd Rothman MD Physical Exam CONSTITUTIONAL/GENERAL: This is am morbidly obese patient, in no apparent distress. SKIN: No jaundice, rashes, or lesions. RESPIRATORY/CHEST: Symmetric, unlabored respirations. BACK: VAC in place with serosang dc NEUROLOGICAL: Awake and alert. Motor and sensory grossly within normal limits. Follows commands. Normal speech. Moves all extremities. Assessment & Plan Remarks Chronic infected seroma with suspected underlying L spine harware infx Proteus, Gram positive skin edy Pt was instructed to go to [facility] recommended for further tx which should include hardware removal Abx is temporizing measure and his infx is likely to recurr Rec's: pt was dc'd on cefepime, dapto OPAT form filled out Kim Mckenzie MD Apr 22, 2016 19:22
== END 2016-04-22 15:04 | disposition home health service (06) | DRG 501 ==
LOC: NEPE 05:04 → NEDA 07:43 → N07B 13:25
PROVIDERS: ADMIT Internal Medicine; ATTEND Internal Medicine
PROC: 0J993ZZ Drainage of Buttock Subcutaneous Tissue and Fascia, Percutaneous Approach (ICD-10-PCS; 2016-03-28)
PROC: 0JD90ZZ Extraction of Buttock Subcutaneous Tissue and Fascia, Open Approach (ICD-10-PCS; principal; 2016-04-20)
PROC: 02HV33Z Insertion of Infusion Device into Superior Vena Cava, Percutaneous Approach (ICD-10-PCS; 2016-04-20)
DX: T84.63XA Infection and inflammatory reaction due to internal fixation device of spine, initial encounter (principal); N17.9 Acute kidney failure, unspecified; I11.9 Hypertensive heart disease without heart failure; E11.8 Type 2 diabetes mellitus with unspecified complications; K70.30 Alcoholic cirrhosis of liver without ascites; E11.65 Type 2 diabetes mellitus with hyperglycemia; Z68.42 Body mass index [BMI] 45.0-49.9, adult; L03.317 Cellulitis of buttock; G83.4 Cauda equina syndrome; J98.11 Atelectasis; T79.2XXD Traumatic secondary and recurrent hemorrhage and seroma, subsequent encounter; N14.1 Nephropathy induced by other drugs, medicaments and biological substances; G89.4 Chronic pain syndrome; E87.70 Fluid overload, unspecified; E66.01 Morbid (severe) obesity due to excess calories; T50.2X5A Adverse effect of carbonic-anhydrase inhibitors, benzothiadiazides and other diuretics, initial encounter; T36.8X5A Adverse effect of other systemic antibiotics, initial encounter; R60.0 Localized edema; M48.06 Spinal stenosis, lumbar region; E55.9 Vitamin D deficiency, unspecified; R06.2 Wheezing; B18.2 Chronic viral hepatitis C; B96.4 Proteus (mirabilis) (morganii) as the cause of diseases classified elsewhere; F10.20 Alcohol dependence, uncomplicated; F17.210 Nicotine dependence, cigarettes, uncomplicated; Y83.1 Surgical operation with implant of artificial internal device as the cause of abnormal reaction of the patient, or of later complication, without mention of misadventure at the time of the procedure; Y92.239 Unspecified place in hospital as the place of occurrence of the external cause; V29.9XXD Motorcycle rider (driver) (passenger) injured in unspecified traffic accident, subsequent encounter; Z79.4 Long term (current) use of insulin; Z88.5 Allergy status to narcotic agent; Z89.611 Acquired absence of right leg above knee; Z91.19 Patient's noncompliance with other medical treatment and regimen; Z98.1 Arthrodesis status
CPT/HCPCS: 10061; 36569; 71010; 72131; 72148; 72194; 76775; 76937; 78315; 80048; 80053; 80069; 80202; 82306; 82550; 82565; 82570; 82948; 83735; 84100; 84133; 84156; 84300; 85025; 85027; 85652; 86140; 86160; 86403; 86803; 87015; 87070; 87077; 87102; 87116; 87176; 87186; 87205; 87206; 87340; 87522; 87902; 93308; 94664; 96374; A9503; J0131; J0690; J0696; J0878; J1100; J1170; J1642; J1644; J1815; J1940; J2250; J2405; J2543; J2710; J3010; J3370; J7030; J7040; J7050; J7120; Q9967

== ENCOUNTER 2016-05-07 11:45 | Inpatient (IN) | payer OTHER, MEDICARE ==
[~2016-05-07] VITALS: Ht 180.3 cm; Wt 135.0 kg
[~2016-05-07 11:45] MED LIST changes: -DILA1LIQ; -FURO1TAB62 PO; +OXYC-392 PO; -PERC7.5T13 PO
[2016-05-07 12:46] VITALS: BP 144/65; PULSE 84; RESP 18; O2SAT 99
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
[2016-05-07] MEDS ORDERED: ANTICRE6 (13:28)
[2016-05-07] MEDS ORDERED: HUMALOG SQ (13:28)
[2016-05-07] MEDS ORDERED: HYDROmorphone HCL PF 1 MG/ML VIAL IVS ONE (13:30)
[2016-05-07 14:01] LABS: AUTOMATED NEUTROPHIL # 2.9 TH/MM3 (1.8-7.7); BASOPHIL % 0.2 % (0.0-2.0); EOSINOPHIL # 0.2 TH/MM3 (0-0.4); EOSINOPHIL % 3.6 % (0.0-4.0); HEMATOCRIT 33.6 % (39.0-51.0); LYMPH % 27.1 % (9.0-44.0); LYMPHOCYTE # 1.3 TH/MM3 (1.0-4.8); MEAN CELL VOLUME 93.8 FL (80.0-100.0); MEAN CORPUSCULAR HEMOGLOBIN 32.3 PG (27.0-34.0); MEAN CORPUSCULAR HGB CONC 34.5 % (32.0-36.0); MONO % 9.5 % (0.0-8.0); NEUT % 59.6 % (16.0-70.0); PLATELET COUNT 72 TH/MM3 (150-450); RED BLOOD COUNT 3.58 MIL/MM3 (4.50-5.90); RED CELL DISTRIBUTION WIDTH 17.4 % (11.6-17.2); WHITE BLOOD COUNT 4.8 TH/MM3 (4.0-11.0)
--- NOTE | 2016-05-07 14:02 | RADRPT ---
EXAM DATE/TIME: 05/07/2016 12:50 [facility] COMPARISON: No previous studies available for comparison. INDICATIONS : Right arm pain and swelling. MEDICAL HISTORY : Deep venous thrombosis. Gastroesophageal reflux disease. UTI. Diabetes. Cirrhosis. Hepatitis. SURGICAL HISTORY : IVC Filter placement. Pelvic surgery. Right below knee amputated. Lumbar surgery. ENCOUNTER: Initial ACUITY: 2 weeks PAIN SCORE: 4/10 LOCATION: Right arm. FINDINGS: Non-occlusive thrombus is noted in the right axillary and right basilic veins surrounding the indwell ing PICC line. Normal color flow is noted within the right internal jugular, subclavian, brachial, r adial and ulnar veins. CONCLUSION: 1. Non-occlusive thrombus within the right axillary and basilic veins surrounding the indwelling PIC C line. Edwin Rahman MD on May 07, 2016 at 13:47 Board Certified Radiologist. This report was verified electronically.
[2016-05-07 14:03] LABS: HEMO FLAGS AUTO DIFF
[2016-05-07 14:13] LABS: ALT (GPT) 24 U/L (12-78); ANION GAP 7 MEQ/L (5-15); AST (GOT) 43 U/L (15-37); BICARBONATE 30.2 MEQ/L (21.0-32.0); BLOOD UREA NITROGEN 6 MG/DL (7-18); CHLORIDE 102 MEQ/L (98-107); GLOMERULAR FILTRATION RATE 122 ML/MIN (>89); POTASSIUM 3.3 MEQ/L (3.5-5.1); SODIUM (NA) 139 MEQ/L (136-145)
[2016-05-07 14:16] LABS: ALKALINE PHOSPHATASE 210 U/L (45-117); TOTAL BILIRUBIN ADULT 1.8 MG/DL (0.2-1.0)
--- NOTE | 2016-05-07 14:27 | RADRPT ---
EXAM DATE/TIME: 05/07/2016 13:35 [facility] COMPARISON: CHEST SINGLE AP, April 21, 2016, 16:06. INDICATIONS : Chest pain, sepsis. MEDICAL HISTORY : Diabetes mellitus type II. SURGICAL HISTORY : Lumbar fusion, PICC line. ENCOUNTER: [facility] ACUITY: 1 day PAIN SCORE: 2/10 LOCATION: Bilateral chest FINDINGS: The heart is mildly enlarged. There is diffuse interstitial prominence which could suggest mild conge stive failure. A small linear band of atelectasis in the right midlung.. There is a PICC. The cathete r tip is in good position. CONCLUSION: 1. PICC in good position. 2. Mild cardiomegaly and interstitial prominence suggesting congestive failure. Grady Arriaga MD on May 07, 2016 at 14:09 Board Certified Radiologist. This report was verified electronically.
[2016-05-07 14:33] LABS: PLATELET ESTIMATE SMEAR LOW (NORMAL); PLATELET MORPHOLOGY NORMAL (NORMAL); SCAN/DIFF AUTO DIFF CONFIRMED
[2016-05-07] MEDS ORDERED: DEXTROSE 50% IN WATER 50 ML VIAL(D50) IV PUSH PRN (15:15)
[2016-05-07] MEDS ORDERED: TEMAZEPAM 15 MG CAP PO PRN (15:15)
[2016-05-07] MEDS ORDERED: ACETAMINOPHEN 325 MG TAB PO PRN (15:15)
[2016-05-07] MEDS ORDERED: SENNOSIDES 8.6 MG TAB PO PRN (15:15)
[2016-05-07] MEDS ORDERED: SODIUM CHLORIDE 0.9% FLUSH 10 ML FLUSH IV FLUSH PRN (15:15)
[2016-05-07] MEDS ORDERED: MAGNESIUM HYDROXIDE SUSP 30 ML CUP PO PRN (15:15)
[2016-05-07] MEDS ORDERED: GLUCAGON 1 MG/ML VIAL OTHER PRN (15:15)
[2016-05-07] MEDS ORDERED: PROCHLORPERAZINE 25 MG SUPP PR PRN (15:15)
[2016-05-07] MEDS ORDERED: BISACODYL 10 MG SUPP PR PRN (15:15)
[2016-05-07 16:47] VITALS: BP 141/65; PULSE 68; RESP 18; O2SAT 97
[2016-05-07] MEDS: INSULIN ASPART SUPPLEMENTAL SCALE SQ SCH ×2 (16:58→20:43)
[2016-05-07] MEDS: HEPARIN-D5W INJ 250 ML IV SCH (17:00)
[2016-05-07 17:11] LABS: APTT (PATIENT) 33.7 SEC (24.3-30.1); INTERNATIONAL NORMALIZED RATIO 1.3 RATIO; PROTHROMBIN TIME - PATIENT 14.4 SEC (9.8-11.6)
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
[2016-05-07 18:09] VITALS: BP 166/79; PULSE 93; RESP 22; TEMP 98; O2SAT 91
[2016-05-07] MEDS: CEFEPIME INJ 2,000 MG in SODIUM CHLORIDE 0.9% INJ 100 ML IV SCH (18:24)
[2016-05-07 20:00] VITALS: O2SAT 94
[2016-05-07 20:22] VITALS: BP 148/75; PULSE 89; RESP 20; TEMP 98.3; O2SAT 94
[2016-05-07] MEDS: DAPTOMYCIN IV SCH (20:42)
[2016-05-07] MEDS: SODIUM CHLORIDE 0.9% FLUSH 10 ML FLUSH IV FLUSH SCH (20:42)
[2016-05-07] MEDS: SODIUM CHLORIDE 0.9% IV SCH (20:42)
[2016-05-07 22:45] LABS: HEMOGLOBIN A1a 0.9 %; HEMOGLOBIN A1b 0.8 %; HEMOGLOBIN F 0.9 %
[2016-05-07 22:46] LABS: HEMOGLOBIN LA1C 1.8 %; HEMOGLOBIN P3 3.2 %
[2016-05-07 23:08] LABS: HEMATOCRIT 31.5 % (39.0-51.0); MEAN CELL VOLUME 93.5 FL (80.0-100.0); MEAN CORPUSCULAR HEMOGLOBIN 32.2 PG (27.0-34.0); MEAN CORPUSCULAR HGB CONC 34.5 % (32.0-36.0); PLATELET COUNT 66 TH/MM3 (150-450); RED BLOOD COUNT 3.37 MIL/MM3 (4.50-5.90); RED CELL DISTRIBUTION WIDTH 17.4 % (11.6-17.2); WHITE BLOOD COUNT 4.4 TH/MM3 (4.0-11.0)
[2016-05-07 23:13] LABS: REVIEW FLAG FINAL
[2016-05-07 23:22] LABS: APTT (PATIENT) 56.2 SEC (24.3-30.1); INTERNATIONAL NORMALIZED RATIO 1.3 RATIO; PROTHROMBIN TIME - PATIENT 14.1 SEC (9.8-11.6)
[2016-05-08] VITALS (7 sets, daily range): BP systolic 115–145; BP diastolic 56–77; PULSE 74–121; RESP 18–21; TEMP 97.8–98.3; O2SAT 93–97
[2016-05-08] MEDS: CEFEPIME INJ 2,000 MG in SODIUM CHLORIDE 0.9% INJ 100 ML IV SCH ×2 (04:51→17:49)
[2016-05-08 06:09] LABS: AUTOMATED NEUTROPHIL # 2.4 TH/MM3 (1.8-7.7); BASOPHIL % 0.3 % (0.0-2.0); EOSINOPHIL # 0.2 TH/MM3 (0-0.4); EOSINOPHIL % 4.1 % (0.0-4.0); HEMATOCRIT 33.7 % (39.0-51.0); LYMPH % 31.1 % (9.0-44.0); LYMPHOCYTE # 1.3 TH/MM3 (1.0-4.8); MEAN CELL VOLUME 95.1 FL (80.0-100.0); MEAN CORPUSCULAR HEMOGLOBIN 31.8 PG (27.0-34.0); MEAN CORPUSCULAR HGB CONC 33.4 % (32.0-36.0); MONO % 8.9 % (0.0-8.0); NEUT % 55.6 % (16.0-70.0); PLATELET COUNT 64 TH/MM3 (150-450); RED BLOOD COUNT 3.54 MIL/MM3 (4.50-5.90); RED CELL DISTRIBUTION WIDTH 18.3 % (11.6-17.2); WHITE BLOOD COUNT 4.3 TH/MM3 (4.0-11.0)
[2016-05-08 06:14] LABS: HEMO FLAGS AUTO DIFF
[2016-05-08 06:17] LABS: APTT (PATIENT) 50.6 SEC (24.3-30.1)
[2016-05-08] MEDS: HEPARIN-D5W INJ 250 ML IV SCH (06:17)
[2016-05-08] MEDS: INSULIN ASPART SUPPLEMENTAL SCALE SQ SCH ×4 (06:17→20:53)
[2016-05-08 06:39] LABS: BICARBONATE 26.5 MEQ/L (21.0-32.0); POTASSIUM 3.3 MEQ/L (3.5-5.1)
[2016-05-08 07:29] LABS: SCAN/DIFF AUTO DIFF CONFIRMED
[2016-05-08 07:30] LABS: PLATELET ESTIMATE SMEAR LOW (NORMAL); PLATELET MORPHOLOGY NORMAL (NORMAL)
[2016-05-08] MEDS ORDERED: POTASSIUM CHLORIDE 20 MEQ CONTROLLED RELEASE TAB PO ONE (08:00)
[2016-05-08] MEDS: SODIUM CHLORIDE 0.9% FLUSH 10 ML FLUSH IV FLUSH SCH ×2 (09:00→20:53)
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
[2016-05-08 13:06] LABS: MRSA PCR NEGATIVE (NEGATIVE); STAPH AUREUS PCR NEGATIVE (NEGATIVE)
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
[2016-05-08] MEDS: SODIUM CHLORIDE 0.9% IV SCH (18:00)
[2016-05-08] MEDS: DAPTOMYCIN IV SCH (18:00)
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
[2016-05-09] MEDS: CYCLOBENZAPRINE HCL 10 MG TAB PO PRN ×2 (00:39→19:48)
[2016-05-09 03:22] VITALS: BP 135/75; PULSE 78; RESP 19; TEMP 98.1; O2SAT 95
[2016-05-09] MEDS: CEFEPIME INJ 2,000 MG in SODIUM CHLORIDE 0.9% INJ 100 ML IV SCH ×2 (05:43→17:03)
[2016-05-09 06:10] LABS: APTT (PATIENT) 68.5 SEC (24.3-30.1)
[2016-05-09] MEDS: INSULIN ASPART SUPPLEMENTAL SCALE SQ SCH ×4 (06:22→19:46)
[2016-05-09 07:58] VITALS: BP 150/92; PULSE 67; RESP 22; TEMP 96.2; O2SAT 94
[2016-05-09 08:02] VITALS: BP 123/56
--- NOTE | 2016-05-09 08:14 | RADRPT ---
EXAM DATE/TIME: 05/09/2016 07:47 [place] COMPARISON: CT PELVIS W & W/O CONTRAST, April 14, 2016, 14:50. INDICATIONS : Evaluate for abscess. ORAL CONTRAST: No oral contrast ingested. RADIATION DOSE: 40.38 CTDIvol (mGy) MEDICAL HISTORY : Hepatitis. Cirrhosis. SURGICAL HISTORY : Pelvic. ENCOUNTER: Initial ACUITY: 1 week PAIN SCALE: 7/10 LOCATION: Bilateral pelvis. TECHNIQUE: Volumetric scanning of the pelvis was performed. Using automated exposure control and adjustment of the mA and/or kV according to patient size, radiation dose was kept as low as reasonably achievable t o obtain optimal diagnostic quality images. FINDINGS: BOWEL/MESENTERY: The visualized small and large bowel demonstrate no acute abnormality. There is no free fluid. No martha dence of intrapelvic abscess. BLADDER: There is no wall thickening or mass. RETROPERITONEUM: There is no aneurysm or lymphadenopathy. REPRODUCTIVE: Within normal limits. INGUINAL: There is no lymphadenopathy or hernia. MUSCULOSKELETAL: Stable appearance of old fracture deformity involving the pelvis with extensive surgical hardware. The soft tissues overlying the midline coccygeal region demonstrate stable appearance of a fistula ex tending to the sacrum and coccyx to the overlying skin. There is no associated fluid collection. Ther e is stable appearance of linear stranding of the right gluteal fat. Stable appearance of diffuse sub cutaneous edema seen throughout the imaged pelvis and gluteal region. 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 Stab le diffuse edema identified within the right gluteal soft tissues and abdomen.. Rahel Cameron MD on May 09, 2016 at 8:05 Board Certified Radiologist. This report was verified electronically.
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
[2016-05-09] MEDS: SODIUM CHLORIDE 0.9% FLUSH 10 ML FLUSH IV FLUSH SCH ×2 (08:51→19:45)
[2016-05-09] MEDS: HEPARIN-D5W INJ 250 ML IV SCH ×2 (10:43→23:36)
[2016-05-09 12:01] VITALS: BP 134/75; PULSE 65; RESP 20; TEMP 95.5; O2SAT 91
[2016-05-09 16:00] VITALS: BP 175/72; PULSE 74; RESP 16; TEMP 96.1; O2SAT 93
[2016-05-09] MEDS: SODIUM CHLORIDE 0.9% IV SCH (17:03)
[2016-05-09] MEDS: DAPTOMYCIN IV SCH (17:03)
[2016-05-09 20:00] VITALS: BP 135/86; PULSE 75; RESP 20; TEMP 97.9; O2SAT 95
[2016-05-10] VITALS: BP 137/78; PULSE 64; RESP 20; TEMP 98; O2SAT 95
[2016-05-10] MEDS: CEFEPIME INJ 2,000 MG in SODIUM CHLORIDE 0.9% INJ 100 ML IV SCH ×2 (04:10→17:32)
[2016-05-10] MEDS: INSULIN ASPART SUPPLEMENTAL SCALE SQ SCH ×4 (04:18→21:24)
[2016-05-10 04:44] LABS: APTT (PATIENT) 67.4 SEC (24.3-30.1)
[2016-05-10 04:47] LABS: HEMATOCRIT 32.4 % (39.0-51.0); MEAN CELL VOLUME 95.5 FL (80.0-100.0); MEAN CORPUSCULAR HEMOGLOBIN 32.4 PG (27.0-34.0); MEAN CORPUSCULAR HGB CONC 33.9 % (32.0-36.0); PLATELET COUNT 63 TH/MM3 (150-450); RED BLOOD COUNT 3.39 MIL/MM3 (4.50-5.90); RED CELL DISTRIBUTION WIDTH 18.1 % (11.6-17.2); WHITE BLOOD COUNT 3.3 TH/MM3 (4.0-11.0)
[2016-05-10 04:52] LABS: REVIEW FLAG FINAL
[2016-05-10 08:00] VITALS: BP 137/97; PULSE 75; RESP 18; TEMP 97; O2SAT 96
[2016-05-10] MEDS: SODIUM CHLORIDE 0.9% FLUSH 10 ML FLUSH IV FLUSH SCH ×2 (08:36→21:00)
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
[2016-05-10] MEDS ORDERED: RIVAROXABAN 15 MG TAB PO ONE (11:30)
[2016-05-10 12:00] VITALS: BP 129/62; PULSE 77; RESP 16; TEMP 95.9; O2SAT 94
[2016-05-10] MEDS ORDERED: SODIUM CHLORIDE 0.9% FLUSH 10 ML FLUSH IV FLUSH PRN (15:30)
[2016-05-10 16:00] VITALS: BP 140/73; PULSE 70; RESP 16; TEMP 97.3; O2SAT 97
--- NOTE | 2016-05-10 16:36 | RADRPT ---
EXAM DATE/TIME: 05/10/2016 15:41 [place] COMPARISON: CHEST SINGLE AP, May 07, 2016, 13:35. INDICATIONS : Post PICC line placement. MEDICAL HISTORY : Diabetes mellitus type II. SURGICAL HISTORY : None. ENCOUNTER: Initial ACUITY: 1 day PAIN SCORE: 0/10 LOCATION: Bilateral chest FINDINGS: Left-sided PICC line tip is in superior vena cava. Mild basilar airspace disease increased from May 07. Cardiomegaly. No pneumothorax. CONCLUSION: 1. Left PICC line tip in superior vena cava. Mild basilar airspace disease. No pneumothorax. River Lemons MD on May 10, 2016 at 16:33 Board Certified Radiologist. This report was verified electronically.
[2016-05-10] MEDS: DAPTOMYCIN IV SCH (17:32)
[2016-05-10] MEDS: SODIUM CHLORIDE 0.9% IV SCH (17:32)
[2016-05-10 20:00] VITALS: BP 184/77; PULSE 76; RESP 20; TEMP 98.2; O2SAT 97
[2016-05-10] MEDS: RIVAROXABAN 15 MG TAB PO SCH (21:23)
[2016-05-11] VITALS: BP 164/82; PULSE 74; RESP 20; TEMP 97.8; O2SAT 96
[2016-05-11] MEDS: CEFEPIME INJ 2,000 MG in SODIUM CHLORIDE 0.9% INJ 100 ML IV SCH ×2 (04:13→16:08)
[2016-05-11] MEDS: INSULIN ASPART SUPPLEMENTAL SCALE SQ SCH ×3 (05:56→16:00)
[2016-05-11 08:00] VITALS: BP 161/77; PULSE 73; RESP 16; TEMP 97.3; O2SAT 95
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
[2016-05-11] MEDS ORDERED: SODIUM CHLORIDE 0.9% FLUSH 10 ML FLUSH IV FLUSH SCH (09:00)
[2016-05-11] MEDS: SODIUM CHLORIDE 0.9% FLUSH 10 ML FLUSH IV FLUSH SCH (09:00)
[2016-05-11] MEDS: RIVAROXABAN 15 MG TAB PO SCH (10:27)
[2016-05-11 12:00] VITALS: BP 142/67; PULSE 73; RESP 16; TEMP 98.3; O2SAT 95
--- NOTE | 2016-05-11 14:13 | HHI.FF ---
Kimberli Jimenez PA-C 05/11/16 1413: Infusion Therapy Location of Infusion Therapy: [facility] Infusion Therapy Order Patient Information Patient Weight 135 kg Diagnosis: Diagnosis Infected Hardware, Abscess Coded Allergies: Morphine (Unverified Allergy, Severe, nausea and vomiting, 05/07/16) Nonsteroidal Anti-Inflammatory Agts (Verified Adverse Reaction, Severe, INCONTINENCE, 05/07/16) Administer Medication Cefepime 2 grams IV q 12 hours Start Treatment: May 11, 2016 Stop Treatment: May 29, 2016 Administer Medication Daptomycin q 24 hours 1250mg Start Treatment: May 11, 2016 Stop Treatment: May 29, 2016 Additional Information Venous access: PICC Line Additional Instructions [x] Peripheral flush and dressing changes per protocol [x] Implanted port and central forming process line worker: * Implanted port: 10 ml Normal Saline followed by 5 ml Heparin 100 units/ml Heparin flush after each use and monthly to maintain. [] May leave port accessed during therapy. [] May leave peripheral site accessed for duration of therapy. [x] If patient has SOB or respiratory distress, check oxygen saturation. If less than 90% or clinical signs of respiratory distress, administer oxygen at 2 L/min. via nasal cannula and notify physician. [x] Anaphylaxis/Reaction orders: * Stop infusion. * Keep IV line open with saline flush. * Notify physician. * Monitor vital signs every 15 minutes until symptoms resolve. * Check Oxygen saturation; Oxygen at 2 L/min. via nasal cannula if less than 90% or clinical signs of respiratory distress. * Administer diphenhydramine (Benadryl) 25 mg IV STAT, (unless patient has received as pre-med). May repeat once, if necessary. * Solu-Cortef 250 mg IVP over 30-60 seconds, use 100 mg vials for each dissolution. * Epinephrine (1mg/1 ml) 0.3 mg subcutaneously or IVP now with any signs of respiratory distress. * Check with physician for new additional pre-med orders if patient is re- challenged or re-treated. [x] May remove PICC line when treatment complete, after confirming with Physician. [x] If the patient is admitted to the hospital, the ED, or transferred via [facility] , complete transfer form including medication reconciliation order sheet. Laboratory Tests Weekly Labs: CBC w/diff, Creatinine, LFT's (Hepatic function test), SED Rate, Serum CK Levels Yesi Langston MD 05/11/16 1431: Infusion Therapy Location of Infusion Therapy: [facility] Infusion Therapy Order Patient Information Coded Allergies: Morphine (Unverified Allergy, Severe, nausea and vomiting, 05/07/16) Nonsteroidal Anti-Inflammatory Agts (Verified Adverse Reaction, Severe, INCONTINENCE, 05/07/16) Kimberli Jimenez PA-C May 11, 2016 14:13 Yesi Langston MD May 11, 2016 14:31
[2016-05-11] MEDS ORDERED: XARE15TA PO (14:16)
[2016-05-11 16:00] VITALS: BP 164/81; PULSE 94; RESP 16; TEMP 98.6; O2SAT 98
[2016-05-11] MEDS ORDERED: OXYC-392 PO (17:59)
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
== END 2016-05-11 18:37 | DRG 300 ==
LOC: NEPE 11:45 → NEDH 15:07 → NEPGCP 18:05 → N07B 05-09 15:31
PROVIDERS: ADMIT Hospitalist; ATTEND Hospitalist
DX: I82.621 Acute embolism and thrombosis of deep veins of right upper extremity (principal); L76.34 Postprocedural seroma of skin and subcutaneous tissue following other procedure; I85.10 Secondary esophageal varices without bleeding; T84.59XA Infection and inflammatory reaction due to other internal joint prosthesis, initial encounter; K70.30 Alcoholic cirrhosis of liver without ascites; S31.819A Unspecified open wound of right buttock, initial encounter; E11.9 Type 2 diabetes mellitus without complications; R19.7 Diarrhea, unspecified; G89.29 Other chronic pain; Z72.0 Tobacco use; Z88.5 Allergy status to narcotic agent; Z88.8 Allergy status to other drugs, medicaments and biological substances; Z89.611 Acquired absence of right leg above knee; S22.079D Unspecified fracture of T9-T10 vertebra, subsequent encounter for fracture with routine healing; Z81.1 Family history of alcohol abuse and dependence; Z82.49 Family history of ischemic heart disease and other diseases of the circulatory system; Y83.8 Other surgical procedures as the cause of abnormal reaction of the patient, or of later complication, without mention of misadventure at the time of the procedure; Y92.9 Unspecified place or not applicable
CPT/HCPCS: 36569; 71010; 72192; 76937; 80048; 80053; 82948; 83036; 85025; 85027; 85610; 85652; 85730; 86140; 87070; 87205; 87640; 87641; 93971; 96374; J0692; J0878; J1170; J1642; J1644; J1815